=== PATIENT | female | born 1945 | race Caucasian/White ===

== ENCOUNTER 2016-07-01 07:29 | Outpatient (CLI) | payer MEDICARE, OTHER | END 2016-07-01 07:30 | disposition critical access hospital (66) | DX: M25.561 Pain in right knee (principal) | CPT/HCPCS: A0425; A0429 ==

== ENCOUNTER 2016-07-01 08:04 | Emergency (ER) | payer MEDICARE, OTHER ==
--- NOTE | 2016-07-01 08:58 | ED Physician Documentation ---
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 - Present Medications Home Medications: Ambulatory Orders Medication Instructions Recorded Confirmed Calcium [Calcio Javier] 1,000 mg PO DAILY 10/14/12 07/01/16 InFLIXimab [Remicade] 200 mg IV ONCE 10/14/12 07/01/16 Leflunomide [Arava] 1 tab PO DAILY 10/14/12 07/01/16 Multivitamin [Multivitamins] 1 cap PO DAILY 10/14/12 07/01/16 Prednisone 5 mg PO DAILY 10/14/12 07/01/16 HYDROcodone/ACET 10/325 [[place]ila 10 5 mg PO TID PRN 10/23/12 07/01/16 mg/325 mg] Amlodipine Besylate 5 mg PO DAILY 02/10/13 07/01/16 Acetaminophen/Diphenhydramine 2 each PO QPM PRN 03/15/15 07/01/16 [Tylenol Pm Ex-Strength Caplet] Cholestyramine (with Sugar) 4 gm PO DAILY 03/01/16 07/01/16 [Cholestyramine Powder] - Allergies Allergies/Adverse Reactions: Allergies Allergy/AdvReac Type Severity Reaction Status Date / Time iodine Allergy Severe Respiratory Verified 10/14/12 15:24 methotrexate Allergy Severe Respiratory Verified 10/14/12 15:24 venom-honey bee Allergy Severe Respiratory Verified 10/14/12 15:24 latex Allergy Rash Verified 10/14/12 15:23 shellfish derived AdvReac Severe "almost Verified 02/10/13 23:03 " - Social History Does the pt smoke?: No Smoking Status: Former smoker Does the pt drink ETOH?: Yes Does the pt have substance abuse?: No - Immunizations Immunizations are current?: Yes - POLST Patient has POLST: No Results - Vitals Vitals: Vital Signs - 24 hr 07/01/16 08:04 Temperature 36.6 C Heart Rate 75 Respiratory 18 Rate Blood Pressure 134/59 H O2 Saturation 97 Oxygen O2 Source Room air
--- NOTE | 2016-07-01 08:58 | ED Physician Documentation ---
PD HPI SKIN - Stated complaint Stated Complaint: R KNEE PAIN - Chief complaint Chief Complaint: Ext Problem - History obtained from History obtained from: Patient - History of Present Illness Timing - onset: Yesterday Timing - duration: Days (1) Timing - details: Abrupt onset, Still present Location: RLE (right knee swelling and painful. She has been having increased general arthralgias due to RA and had missed 2 doses of remicaide due to UTI recently. Repeat UA was clear after abx. Scheduled for [place]ide dose tomorrow [place] [facility] No fevers.) Quality / character: Painful Associated symptoms: Myalgias, Joint pain (right knee). No: Fever, N/V/D, Urinary sx Contributing factors: Recent illness (UTI couple weeks ago Rx with abx and cleared on repeat urine test.) Similar symptoms before: Has not had sx before (has not had swelling of the knee before.) Review of Systems Constitutional: reports: Myalgias, Fatigue. 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 - Present Medications Home Medications: Ambulatory Orders Medication Instructions Recorded Confirmed Calcium [Calcio Javier] 1,000 mg PO DAILY 10/14/12 07/01/16 InFLIXimab [Remicade] 200 mg IV ONCE 10/14/12 07/01/16 Leflunomide [Arava] 1 tab PO DAILY 10/14/12 07/01/16 Multivitamin [Multivitamins] 1 cap PO DAILY 10/14/12 07/01/16 Prednisone 5 mg PO DAILY 10/14/12 07/01/16 HYDROcodone/ACET 10/325 [[place] 10 5 mg PO TID PRN 10/23/12 07/01/16 mg/325 mg] Amlodipine Besylate 5 mg PO DAILY 12/10/13 04/30/17 Acetaminophen/Diphenhydramine 2 each PO QPM PRN 03/15/15 07/01/16 [Tylenol Pm Ex-Strength Caplet] Cholestyramine (with Sugar) 4 gm PO DAILY 03/01/16 07/01/16 [Cholestyramine Powder] Oxycodone HCl/Acetaminophen 1 each PO Q6H PRN #20 tablet 07/01/16 [Percocet 5-325 mg Tablet] Prednisolone [Millipred] 5 mg PO DAILY #60 tablet 07/01/16 - Allergies Allergies/Adverse Reactions: Allergies Allergy/AdvReac Type Severity Reaction Status Date / Time iodine Allergy Severe Respiratory Verified 10/14/12 15:24 methotrexate Allergy Severe Respiratory Verified 10/14/12 15:24 venom-honey bee Allergy Severe Respiratory Verified 10/14/12 15:24 latex Allergy Rash Verified 10/14/12 15:23 shellfish derived AdvReac Severe "almost Verified 02/10/13 23:03 " - Social History Does the pt smoke?: No Smoking Status: Former smoker Does the pt drink ETOH?: Yes Does the pt have substance abuse?: No - Immunizations Immunizations are current?: Yes - POLST Patient has POLST: No PD ED PE NORMAL - Vitals Vital signs reviewed: Yes - General General: Alert and oriented X 3, Well developed/nourished, Other (appears in pain) - HEENT HEENT: Moist mucous membranes, Pharynx benign - Neck Neck: Supple, no meningeal sign, No adenopathy - Cardiac Cardiac: RRR, No murmur - Respiratory Respiratory: No respiratory distress, Clear bilaterally - Abdomen Abdomen: Normal bowel sounds, Soft, Non tender, Non distended - Female Female : Deferred - Rectal Rectal: Deferred - Back Back: No CVA TTP - Derm Derm: Normal color, Warm and dry - Extremities Extremities: No deformity, Normal ROM s pain, No edema, No calf tenderness / cord, Other (large right knee effusion with old surgical scar noted. No redness but does have some warmth to the knee. ) - Neuro Neuro: Alert and oriented X 3, No motor deficit, Normal speech Results - Vitals Vitals: Vital Signs - 24 hr 07/01/16 07/01/16 07/01/16 08:04 11:24 12:35 Temperature 36.6 C Heart Rate 75 74 66 Respiratory 18 16 12 Rate Blood Pressure 134/59 H 123/65 124/53 L O2 Saturation 97 95 96 07/01/16 14:26 Temperature Heart Rate 74 Respiratory 17 Rate Blood Pressure 113/58 L O2 Saturation 100 Oxygen O2 Source Room air - Labs Labs: Microbiology 07/01/16 09:57 Body Fluid Culture - Preliminary Synovial Fluid Laboratory Tests 07/01/16 07/01/16 07/01/16 09:57 12:54 12:54 WBC 22.1 H RBC 4.24 Hgb 12.5 Hct 37.8 MCV 89.3 MCH 29.5 MCHC 33.0 RDW 14.0 Plt Count 290 MPV 7.3 L Neut # Not Reportable Lymph # Not Reportable [place] # Not Reportable Eos # Not Reportable Baso # Not Reportable Absolute Nucleated RBC Not Reportable Band Neuts % (Manual) 6 Neutrophils # (Manual) 20.1 H Lymphocytes # (Manual) 0.9 L Monocytes # (Manual) 0.9 Basophils # (Manual) 0.2 H Nucleated RBCs Not Reportable Platelet Estimate NORMAL (130-450,000) RBC Morph Micro Appear NORMAL APPEARANCE ESR Sodium 135 Potassium 4.2 Chloride 105 Carbon Dioxide 23 Anion Gap 7.0 BUN 18 Creatinine 0.9 Estimated GFR (MDRD) 62 L Glucose 158 H Calcium 8.8 Total Bilirubin 0.7 AST 29 ALT 27 Alkaline Phosphatase 65 C-Reactive Protein Total Protein 6.8 Albumin 3.4 Globulin 3.4 Albumin/Globulin Ratio 1.0 Lipase 114 H Fluid Source SYNOVIAL Fluid Color STRAW Fluid Clarity CLOUDY Fluid WBC 92902 Fluid RBC 3892 Fluid Neutrophils % 89 Fluid Lymphocytes % 9 Fluid Monocytes % 2 Fluid Crystals NONE SEEN 07/01/16 07/01/16 12:54 12:54 WBC RBC Hgb Hct MCV MCH MCHC RDW Plt Count MPV Neut # Lymph # [place] # Eos # Baso # Absolute Nucleated RBC Band Neuts % (Manual) Neutrophils # (Manual) Lymphocytes # (Manual) Monocytes # (Manual) Basophils # (Manual) Nucleated RBCs Platelet Estimate RBC Morph Micro Appear ESR 20 Sodium Potassium Chloride Carbon Dioxide Anion Gap BUN Creatinine Estimated GFR (MDRD) Glucose Calcium Total Bilirubin AST ALT Alkaline Phosphatase C-Reactive Protein 5.4 H Total Protein Albumin Globulin Albumin/Globulin Ratio Lipase Fluid Source Fluid Color Fluid Clarity Fluid WBC Fluid RBC Fluid Neutrophils % Fluid Lymphocytes % Fluid Monocytes % Fluid Crystals Procedures - Arthrocentesis Joint: Knee Preparation: Consent obtained (verbal), Sterile prep and drape Anesthesia: Lidocaine 1% Fluid: Sent for cell count, Cloudy, Sent for crystals, Sent for culture, Fluid obtained - cc (50) Aftercare: Dressing applied, No complications, Patient tolerated well PD MEDICAL DECISION MAKING - ED course Complexity details: reviewed results, considered differential (rheumatoid flare with effusion vs. gout vs. infection - she is immunocompromised due to medications, so infection a concern. Her cell count for the knee is high enough to be of concern. She has chronic leukocytosis but it is higher than usual. She is scheduled for Remicade dose [place] [facility] which would be good for this RA flare, if that is what it is. Gave dose of Decadron as well. Pain meds given. ) , d/w patient, d/w call center support consultant (call center operations manager Ortho from [facility], who defers the case to our local Ortho. Talked with Dr. Otoole, who will see patient in office tomorrow, and advised not to give abx (wants to tap joint again and the abx would be insufficient anyway, as scope irrigation would be treatment of choice if it is infected. ) Departure - Departure Disposition: Home, Self Care Clinical Impression: Knee effusion, right, Rheumatoid arthritis flare Knee pain, acute Qualifiers: Laterality: right Qualified Code(s): M25.561 - Pain in right knee Condition: Stable Record reviewed to determine appropriate education?: Yes Instructions: ED Effusion Knee Follow-Up: Mert Mares MD [Primary Care Provider] - Yovani Otoole MD [Provider Admit Priv/Credential] - Chuy Enrique MD [Physician No Access] - Prescriptions: Prednisolone [Millipred] 5 mg PO DAILY #60 tablet Oxycodone HCl/Acetaminophen [Percocet 5-325 mg Tablet] 1 each PO Q6H PRN #20 tablet PRN Reason: Pain Comments: Continue usual medications. Oxycodone as needed for pains. [place] [facility] [place] as planned, as the Remicaide and increased steroid dosing will help presuming this is a rheumatoid flare. However there is concern for infection, so see Dr. Otoole, Ortho here in [place], call his office in morning to coordinate him seeing you about further testing of the knee to evaluate for infection. We also have the fluid I obtained that is started on a culture, with the results taking about 3 days. Return if generally sick, fever in particular, other concerns. Discharge Date/Time: 07/01/16 15:23
[2016-07-01] MEDS ORDERED: ONDANSETRON ODT 4 MG TABLET TL STA (09:11)
[2016-07-01] MEDS ORDERED: HYDROmorphone 1 MG/ML SYRINGE IM STA (09:11)
[2016-07-01] MEDS ORDERED: KETOROLAC 30 MG/ML VIAL IM STA (09:11)
[2016-07-01] MEDS ORDERED: DEXAMETHASONE 10 MG/ML VIAL PO STA (09:11)
[2016-07-01] MEDS ORDERED: CHERRY SYRUP 10 ML UDC PO ONE (09:13)
[2016-07-01] MEDS ORDERED: ONDANSETRON ODT 4 MG TABLET ONE (09:13)
[2016-07-01] MEDS ORDERED: DEXAMETHASONE 10 MG/ML VIAL ONE (09:13)
[2016-07-01] MEDS ORDERED: KETOROLAC 60 MG/2 ML VIAL ONE (09:13)
[2016-07-01] MEDS ORDERED: HYDROmorphone 1 MG/ML SYRINGE ONE (09:13)
[2016-07-01 11:16] LABS: BF CLARITY CLOUDY; BF COLOR STRAW; CC,BF RBC 3892 /mm^3
[2016-07-01 11:51] LABS: LYMPHOCYTES %,BODY FLUID 9; MONOCYTES %,BODY FLUID 2 %; NEUTROPHILS %, BF 89 %
[2016-07-01 12:59] LABS: BASOPHILS % (AUTO) 0.3 %; HCT - HEMATOCRIT 37.8 % (37.0-47.0); HGB - HEMOGLOBIN 12.5 g/dL (12.0-16.0); LYMPHOCYTES % (AUTO) 2.6 %; MEAN CORPUSCULAR HEMOGLOBIN 29.5 pg (27.0-31.0); MEAN CORPUSCULAR VOLUME 89.3 fL (81.0-99.0); MEAN PLATELET VOLUME 7.3 fL (7.9-10.8); MONOCYTES % (AUTO) 6.4 %; NEUTROPHILS % (AUTO) 90.7 %; RED BLOOD COUNT 4.24 10^6/uL (4.20-5.40); UNCORRECTED WHITE BLOOD COUNT 22.1 x10^3/uL; WHITE BLOOD COUNT 22.1 x10^3/uL (4.8-10.8)
[2016-07-01 13:15] LABS: BILIRUBIN,TOTAL 0.7 mg/dL (0.2-1.0); CALCIUM 8.8 mg/dL (8.5-10.3); CREATININE 0.9 mg/dL (0.4-1.0); POTASSIUM 4.2 mmol/L (3.5-5.0); TOTAL PROTEIN 6.8 g/dL (6.7-8.2)
[2016-07-01 13:29] LABS: BAND NEUTROPHILS % (MANUAL) 6 %; BASOPHILS % (MANUAL) 1 %; LYMPHOCYTES % (MANUAL) 4 %; NEUTROPHILS % (MANUAL) 85 %; NP AUTO DIFFERENTIAL? YES; NP MAN DIFFERENTIAL? NO; PLATELET ESTIMATE, MANUAL NORMAL (130-450,000) (NORMAL)
[2016-07-01] MEDS ORDERED: oxyCOD/ACETAMIN 5 MG/325 MG TABLET PO STA (14:11)
[2016-07-01] MEDS ORDERED: oxyCOD/ACETAMIN 5 MG/325 MG TABLET PO ONE (14:23)
[2016-07-01 14:27] VITALS: BP 113/58
== END 2016-07-01 15:23 | disposition home or self-care (01) ==
LOC: ED 08:04
DX: M25.461 Effusion, right knee (principal); M25.561 Pain in right knee; M06.9 Rheumatoid arthritis, unspecified; D72.829 Elevated white blood cell count, unspecified; I10 Essential (primary) hypertension; Z87.891 Personal history of nicotine dependence
CPT/HCPCS: 20610; 36415; 80053; 83690; 85025; 85651; 86140; 87070; 87205; 89051; 89060; 96372; 99284; A9270; J1170; Q0162

== ENCOUNTER 2016-08-24 10:52 | Outpatient (CLI) | payer MEDICARE, OTHER ==
--- NOTE | 2016-08-27 16:16 | Mammography Report ---
DIGITAL SCREENING MAMMOGRAM: 08/24/2016 CLINICAL INDICATION: A 70-year-old, for screening. COMPARISON: 09/2014, 02/2014, 07/2013, 11/2012, 05/2012, 04/2012, 04/2010, 01/2009, 04/2007. TECHNIQUE: Routine CC and MLO projections were obtained of the breasts. FINDINGS: The breasts again demonstrate heterogeneously dense fibroglandular parenchyma bilaterally. Coarse and punctate, typically benign calcifications are present. No suspicious masses, clustered mi crocalcifications, or regions of architectural distortion are identified. IMPRESSION: BENIGN FINDINGS. RECOMMENDATION: ROUTINE ANNUAL SCREENING UNLESS OTHERWISE CLINICALLY INDICATED. BIRADS CATEGORY 2-BENIGN FINDINGS. STANDARD QUALIFYING STATEMENTS 1. This examination was reviewed with the aid of Computer-Aided Detection (CAD). 2. A negative or benign imaging report should not delay biopsy if clinically suspicious findings are present. Consider surgical consultation if warranted. More than 5% of cancers are not identified by i maging. 3. Dense breasts may obscure an underlying neoplasm. JOB #: [id number] EXT JOB #:[id number]
== END 2016-08-24 10:53 | disposition home or self-care (01) ==
LOC: DI 10:52
PROVIDERS: ATTEND Internal Medicine
DX: Z12.31 Encounter for screening mammogram for malignant neoplasm of breast (principal)
CPT/HCPCS: 77067

== ENCOUNTER 2016-10-07 20:20 | Outpatient (CLI) | payer MEDICARE, OTHER | END 2016-10-07 20:21 | disposition critical access hospital (66) | LOC: EMS 20:20 | PROVIDERS: ATTEND Surgery | DX: R11.2 Nausea with vomiting, unspecified (principal); R19.7 Diarrhea, unspecified; R50.9 Fever, unspecified | CPT/HCPCS: A0425; A0429 ==

== ENCOUNTER 2016-10-07 20:55 | Inpatient (IN) | payer MEDICARE, OTHER ==
--- NOTE | 2016-10-07 21:09 | ED Physician Documentation ---
PD HPI ABD PAIN - Stated complaint Stated Complaint: FEVER/VOMITING - Chief complaint Chief Complaint: Abd Pain - History obtained from History obtained from: Patient - History of Present Illness Timing - onset: How many days ago (3) Timing - duration: Days (3) Timing - details: Abrupt onset, Still present Quality: Aching, Pain Location: Periumbilical, LLQ Radiation: No: Lower back Improved by: Position Worsened by: Position, Palpation. No: Eating (less appetite and with nausea; vomiting just today.) Associated symptoms: Fever, Nausea, Vomiting, Diarrhea. No: Constipation, Melena, Dysuria Similar symptoms before: Diagnosis (diverticulitis/colonic abscess) Recently seen: Not recently seen Review of Systems Constitutional: reports: Fever, Chills, Myalgias Nose: denies: Rhinorrhea / runny nose, Congestion Throat: denies: Sore throat Respiratory: denies: Cough GI: reports: Abdominal Pain, Nausea (2 days), Vomiting (today), Diarrhea (for 4- 5 days). denies: Constipation : denies: Dysuria, Frequency, Discharge Skin: denies: Rash, Lesions Neurologic: reports: Generalized weakness. denies: Near syncope PD PAST MEDICAL HISTORY - Past Medical History Cardiovascular: Hypertension Respiratory: None Neuro: None Endocrine/Autoimmune: None GI: Other (prior abd abscess (from diverticulitis?) that needed perc drainage, IV abx and was in [facility] [place] for 2 weeks. 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 - Present Medications Home Medications: Ambulatory Orders Medication Instructions Recorded Confirmed Leflunomide [Arava] 10 mg PO DAILY 10/14/12 10/07/16 Prednisone 5 mg PO DAILY 10/14/12 10/07/16 Amlodipine Besylate 5 mg PO DAILY 02/10/13 10/07/16 Oxycodone HCl/Acetaminophen 1 each PO Q6H PRN #20 tablet 07/01/16 10/07/16 [Percocet 5-325 mg Tablet] Albuterol Sulfate [Proair Hfa 2 puffs INH Q4H PRN 10/07/16 10/07/16 Inhaler] Amoxicillin 2,000 mg PO PRN PRN 08/06/17 08/06/17 Losartan Potassium 100 mg PO DAILY 10/07/16 10/07/16 - Allergies Allergies/Adverse Reactions: Allergies Allergy/AdvReac Type Severity Reaction Status Date / Time iodine Allergy Severe Respiratory Verified 10/14/12 15:24 methotrexate Allergy Severe Respiratory Verified 10/14/12 15:24 venom-honey bee Allergy Severe Respiratory Verified 10/14/12 15:24 latex Allergy Rash Verified 10/14/12 15:23 shellfish derived AdvReac Severe "almost Verified 02/10/13 23:03 " - Living Situation Living Situation: reports: Alone Living Arrangement: reports: At home - Social History Does the pt smoke?: No Smoking Status: Former smoker Does the pt drink ETOH?: Yes Does the pt have substance abuse?: No - Family History Family history: reports: Non contributory - Immunizations Immunizations are current?: Yes - POLST Patient has POLST: No PD ED PE NORMAL - Vitals Vital signs reviewed: Yes - General General: Alert and oriented X 3, No acute distress, Well developed/nourished - HEENT HEENT: Pharynx benign - Neck Neck: Supple, no meningeal sign, No adenopathy, No JVD - Cardiac Cardiac: RRR, No murmur - Respiratory Respiratory: Clear bilaterally - Abdomen Abdomen: Soft, Non distended, No organomegaly, Other (tender central abdomen to left mid/lower abdomen locally with guarding. No percussion nor rebound tenderness. ). No: Normal bowel sounds (diminished) - Female Female : Deferred - Rectal Rectal: Deferred - Back Back: No CVA TTP - Derm Derm: Normal color, Warm and dry - Extremities Extremities: No tenderness to palpate, Normal ROM s pain, No edema, No calf tenderness / cord - Neuro Neuro: Alert and oriented X 3, No motor deficit, Normal speech - Psych Psych: Normal mood, Normal affect Results - Vitals Vitals: Vital Signs - 24 hr 10/07/16 21:02 Temperature 37.8 C H Heart Rate 82 Respiratory 18 Rate Blood Pressure 143/67 H O2 Saturation 96 Oxygen O2 Source Room air - Labs Labs: Laboratory Tests 10/07/16 10/07/16 10/07/16 21:48 21:48 21:48 WBC 20.2 H RBC 4.19 L Hgb 12.4 Hct 37.1 MCV 88.6 MCH 29.7 MCHC 33.5 RDW 14.5 Plt Count 225 MPV 7.2 L Neut # Not Reportable Lymph # Not Reportable [place] # Not Reportable Eos # Not Reportable Baso # Not Reportable Absolute Nucleated RBC Not Reportable Total Counted 100 Band Neuts % (Manual) 5 Reactive Lymphs % (Man) 1 Neutrophils # (Manual) 17.8 H Lymphocytes # (Manual) 1.6 Monocytes # (Manual) 0.8 Nucleated RBCs Not Reportable Differential Comment MANUAL DIFFERENTIAL Platelet Estimate NORMAL (130-450,000) Platelet Morphology NORMAL APPEARANCE RBC Morph Micro Appear NORMAL APPEARANCE Sodium 130 L Potassium 3.7 Chloride 98 L Carbon Dioxide 21 Anion Gap 11.0 BUN 15 Creatinine 0.9 Estimated GFR (MDRD) 62 L Glucose 124 H Lactic Acid 0.7 Calcium 8.7 Total Bilirubin 1.6 H AST 19 ALT 16 Alkaline Phosphatase 76 Total Protein 6.9 Albumin 3.3 Globulin 3.6 Albumin/Globulin Ratio 0.9 L Lipase 21 L - Rads (name of study) abd CT Radiology: Prelim report reviewed (lower left diverticulitis. Some right perinephric stranding as well. ) PD MEDICAL DECISION MAKING - ED course Complexity details: reviewed results (no abscess. Some lower left diverticulitis. Also right perinephric stranding that could represent pyelo ( though her pain is not on right). ), re-evaluated patient (improved pain and nausea with meds, and given IV fluids. ), considered differential, d/w patient Departure - Departure Disposition: [facility] DC/Xfer Clinical Impression: Diverticulitis of gastrointestinal tract Abdominal pain Qualifiers: Abdominal location: left lower quadrant Qualified Code(s): R10.32 - Left lower quadrant pain Vomiting Qualifiers: Vomiting type: unspecified Vomiting Intractability: non-intractable Nausea presence: with nausea Qualified Code(s): R11.2 - Nausea with vomiting, unspecified
[2016-10-07] MEDS ORDERED: HYDROmorphone 1 MG/ML CARPUJECT IVP STA (21:29)
[2016-10-07] MEDS ORDERED: SODIUM CHLORIDE 0.9% 1,000 ML IV ONE (21:29)
[2016-10-07] MEDS ORDERED: ONDANSETRON 4 MG/2 ML VIAL IVP STA (21:29)
[2016-10-07 21:55] LABS: BASOPHILS % (AUTO) 0.3 %; EOSINOPHILS % (AUTO) 0.1 %; HCT - HEMATOCRIT 37.1 % (37.0-47.0); HGB - HEMOGLOBIN 12.4 g/dL (12.0-16.0); LYMPHOCYTES % (AUTO) 4.8 %; MEAN CORPUSCULAR HEMOGLOBIN 29.7 pg (27.0-31.0); MEAN CORPUSCULAR HGB CONC 33.5 g/dL (32.0-36.0); MEAN CORPUSCULAR VOLUME 88.6 fL (81.0-99.0); MEAN PLATELET VOLUME 7.2 fL (7.9-10.8); NEUTROPHILS % (AUTO) 83.8 %; RED BLOOD COUNT 4.19 10^6/uL (4.20-5.40); RED CELL DISTRIBUTION WIDTH 14.5 % (12.0-15.0); UNCORRECTED WHITE BLOOD COUNT 20.2 x10^3/uL; WHITE BLOOD COUNT 20.2 x10^3/uL (4.8-10.8)
[2016-10-07 22:08] LABS: ALBUMIN/GLOBULIN RATIO 0.9 (1.0-2.2); BILIRUBIN,TOTAL 1.6 mg/dL (0.2-1.0); CALCIUM 8.7 mg/dL (8.5-10.3); CREATININE 0.9 mg/dL (0.4-1.0); POTASSIUM 3.7 mmol/L (3.5-5.0); TOTAL PROTEIN 6.9 g/dL (6.7-8.2)
[2016-10-07] MEDS ORDERED: cefTRIAXone 1 GM in SODIUM CHLORIDE 0.9% MINIBAG 100 ML IV STA (22:13)
[2016-10-07] MEDS ORDERED: ONDANSETRON 4 MG/2 ML VIAL ONE (22:16)
[2016-10-07] MEDS ORDERED: HYDROmorphone 1 MG/ML CARPUJECT ONE (22:16)
[2016-10-07] MEDS ORDERED: cefTRIAXone 1 GM VIAL ONE (22:20)
--- NOTE | 2016-10-07 22:21 | CT Preliminary Report ---
Exam: CT Abdomen/Pelvis W/O IMPRESSION: 1. Mild left lower quadrant diverticulitis. 2. Right perinephric stranding. This is a nonspecific finding and may be secondary to a recently pass ed stone or pyelonephritis. 3. Small hiatal hernia. [facility] SITE ID: [id number]
--- NOTE | 2016-10-07 22:24 | CT Report ---
EXAM: CT ABDOMEN AND PELVIS EXAM DATE: 10/07/2016 10:06 PM. CLINICAL HISTORY: Mid abd pain and fever. COMPARISONS: None. TECHNIQUE: Routine helical CT imaging was performed through the abdomen and pelvis. IV contrast: Amt/ type. Enteric contrast: No. Reconstructions: Coronal and sagittal. In accordance with CT protocol optimization, one or more of the following dose reduction techniques w ere utilized for this exam: automated exposure control, adjustment of mA and/or KV based on patient s ize, or use of iterative reconstructive technique. FINDINGS: Lung Bases: Noncalcified pleural plaque seen at the right lung base, relatively stable. There is a sm all hiatal hernia. No pleural effusions. Liver: The unenhanced liver is unremarkable. Gallbladder/Bile Ducts: The gallbladder has been removed. There is no biliary dilatation. Spleen: Normal. Pancreas: Normal. Adrenal Glands: Normal. Kidneys: No renal stones. Is mild right renal pelviectasis and perinephric stranding. Peritoneal Cavity/Bowel: Diverticulosis. Short segment of mural thickening and pericolonic stranding in the left lower quadrant. No pneumoperitoneum or fluid collections. The appendix is well visualized and normal. Pelvic Organs: The uterus has been removed. No pelvic mass, lymphadenopathy or fluid collections. The urinary bladder is unremarkable. Vasculature: No aneurysms or other significant abnormality. Bones: L4-L5 and L5-S1 disk related degenerative changes. No acute bony abnormality. Other: None. IMPRESSION: 1. Mild left lower quadrant diverticulitis. 2. Right perinephric stranding. This is a nonspecific finding and may be secondary to a recently pass ed stone or pyelonephritis. 3. Small hiatal hernia. [facility] Referring Provider Line: [phone] SITE ID: [id number]
[2016-10-07] MEDS ORDERED: metroNIDAZOLE 500 MG/100 ML 100 ML IV ONE (22:34)
[2016-10-07 22:39] LABS: BAND NEUTROPHILS % (MANUAL) 5 %; LYMPHOCYTES % (MANUAL) 7 %; NEUTROPHILS % (MANUAL) 83 %; NP AUTO DIFFERENTIAL? YES; NP MAN DIFFERENTIAL? NO; PLATELET ESTIMATE, MANUAL NORMAL (130-450,000) (NORMAL); PLATELET MORPHOLOGY NORMAL APPEARANCE (NORMAL); TOTAL CELLS COUNTED 100
[2016-10-07] MEDS ORDERED: metroNIDAZOLE 500 MG/100 ML 100 ML ONE (22:50)
[2016-10-07] MEDS ORDERED: MORPHINE 2 MG/ML CARPUJECT IVP PRN (23:50)
--- NOTE | 2016-10-08 00:20 | HISTORY & PHYSICAL EXAMINATION ---
Chief Complaint - Chief Complaint Chief Complaint: fever, diarrhea Abdominal Pain HPI - Admitted From Admitted from: ED - History Obtained From Records Reviewed: Old records reviewed History obtained from: Patient Exam limitations: No limitations - History of Present Illness Severity at the worst: Severe Pain Quality: Sharp Context-Pain started w/: Eating Timing: Gradual onset Duration: Days: Improved with: Nothing Worsened by: Nothing Associated symptoms: Nausea, Vomiting HPI Comment/Other: 70yoF wtih h/o RA, HTN and diverticuli. On Sat (10/05) pt had sudden onset of vomiting and abd pain after eating dinner (soup). Went to bed at 10:30pm and woke up the next night at 7pm. Had an episode of diarrhea and did not feel well so went back to sleep until 8am today. Vomiting (bilious, non-bloody)x1 today and diarrhea x2. no blood in emesis or stool. Continued to have abd pain and worsening nausea. Fever to 103 at home wtih shaking chills. In ER CT shows diverticulitis in the LLQ, also some non-specific perinephric stranding. Denies dysuria/hematuria, no change in color or smell of urine. Starting to feel better after fluids and nausea medication Pt had episode of diverticulitis with abscess requiring perc drainage about 5yrs ago. Otherwise has had no other episodes of diverticulitis. Pt also with RA. Has not taken medication in 2 days, so has some stiffness in joints, but no actual flare. PMH/PSH - Past Medical History Cardiovascular: positive: Hypertension Respiratory: positive: None Neuro: positive: None Endocrine/Autoimmune: positive: None GI: positive: Other (prior abd abscess (from diverticulitis?) that needed perc drainage, IV abx and was in [facility] for 2 weeks. 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 has 2 cats - POLST Patient has POLST: No - Family History Family History: Mother: Cancer, Father: Cancer Family History Comment/Other: mom with ovarian cancer, dad wtih stomach cancer Meds/Allgy - Home Medications Home Medications: Ambulatory Orders Medication Instructions Recorded Confirmed Leflunomide [Arava] 10 mg PO DAILY 10/14/12 10/07/16 Prednisone 5 mg PO DAILY 10/14/12 10/07/16 Amlodipine Besylate 5 mg PO DAILY 02/10/13 10/07/16 Oxycodone HCl/Acetaminophen 1 each PO Q6H PRN #20 tablet 07/01/16 10/07/16 [Percocet 5-325 mg Tablet] Albuterol Sulfate [Proair Hfa 2 puffs INH Q4H PRN 10/07/16 10/07/16 Inhaler] Amoxicillin 2,000 mg PO PRN PRN 10/07/16 10/07/16 Losartan Potassium 100 mg PO DAILY 10/07/16 10/07/16 - Allergies Allergies/Adverse Reactions: Allergies Allergy/AdvReac Type Severity Reaction Status Date / Time iodine Allergy Severe Respiratory Verified 10/14/12 15:24 methotrexate Allergy Severe Respiratory Verified 10/14/12 15:24 venom-honey bee Allergy Severe Respiratory Verified 10/14/12 15:24 latex Allergy Rash Verified 10/14/12 15:23 shellfish derived AdvReac Severe "almost Verified 02/10/13 23:03 " Review of Systems - Constitutional Constitutional: reports: Fatigue, Fever, Chills, Malaise, Weakness, Poor appetite - Eyes Eyes: denies: Blurred vision, Dipolpia - Ears, Nose & Throat Ears, Nose & Throat: denies: Vertigo, Mouth lesions - Cardiovascular Cariovascular: denies: Palpitations, Chest pain, Edema, Lightheadedness, Syncope - Respiratory Respiratory: denies: Cough, Sputum production, Wheezing - Gastrointestinal Gastrointestinal: reports: Abdominal pain, Diarrhea, Nausea, Vomiting, Bile emesis. denies: Black stools, Bloody stools - Genitourinary Genitourinary: denies: Dysuria, Hematuria - Musculoskeletal Musculoskeletal: reports: Muscle aches - Integumentary Integumentary: denies: Rash, Pruritis - Neurological Neurological: reports: General weakness - All Other Systems All Other Systems: reports: Reviewed and negative Exam - Vital Signs Reviewed Vital Signs: Yes Vital Signs: Vital Signs x48h Temp Pulse Resp BP Pulse Ox 10/07/16 21:02 37.8 C H 82 18 143/67 H 96 - Physical Exam General Appearance: positive: No acute distress Eyes Bilateral: positive: PERRL, EOMI, Conjunctivae nml, No scleral icterus ENT: positive: Pharynx nml. negative: Oral lesions Neck: positive: Thyroid nml, No JVD. negative: Lymphadenopathy (R), Lymphadenopathy (L) Respiratory: positive: Chest non-tender, No respiratory distress, Breath sounds nml. negative: Wheezes, Rales, Rhonchi Cardiovascular: positive: Regular rate & rhythm, No murmur, No gallop Peripheral Pulses: positive: 2+ Abdomen: positive: Tenderness (LLQ). negative: No distention, Guarding, Rebound Back: negative: CVA tenderness (R), CVA tenderness (L) Skin: positive: Color nml, No rash, Warm, Dry Extremities: positive: Non-tender, No pedal edema Neurologic/Psychiatric: positive: Oriented x3 Results - Lab Results Lab results reviewed: Yes Fish Bones: 10/07/16 21:48 10/07/16 21:48 Other Lab Results: Lab Results x24hrs 10/07/16 10/07/16 10/07/16 Range/Units 21:48 21:48 21:48 WBC 20.2 H (4.8-10.8) x10^3/uL RBC 4.19 L (4.20-5.40) 10^6/uL Hgb 12.4 (12.0-16.0) g/dL Hct 37.1 (37.0-47.0) % MCV 88.6 (81.0-99.0) fL MCH 29.7 (27.0-31.0) pg MCHC 33.5 (32.0-36.0) g/dL RDW 14.5 (12.0-15.0) % Plt Count 225 (130-450) 10^3/uL MPV 7.2 L (7.9-10.8) fL Neut # Not Reportable Lymph # Not Reportable [place] # Not Reportable Eos # Not Reportable Baso # Not Reportable Absolute Nucleated RBC Not Reportable Total Counted 100 Band Neuts % (Manual) 5 (0 - 10) % Reactive Lymphs % (Man) 1 % Neutrophils # (Manual) 17.8 H (1.5-6.6) 10^3/uL Lymphocytes # (Manual) 1.6 (1.5-3.5) 10^3/uL Monocytes # (Manual) 0.8 (0.0-1.0) 10^3/uL Nucleated RBCs Not Reportable Differential Comment MANUAL DIFFERENTIAL Platelet Estimate NORMAL (130-450,000) (NORMAL) Platelet Morphology NORMAL APPEARANCE (NORMAL) RBC Morph Micro Appear NORMAL APPEARANCE (NORMAL) Sodium 130 L (135-145) mmol/L Potassium 3.7 (3.5-5.0) mmol/L Chloride 98 L (101-111) mmol/L Carbon Dioxide 21 (21-32) mmol/L Anion Gap 11.0 (6-13) BUN 15 (6-20) mg/dL Creatinine 0.9 (0.4-1.0) mg/dL Estimated GFR (MDRD) 62 L (>89) Glucose 124 H (70-100) mg/dL Lactic Acid 0.7 (0.5-2.2) mmol/L Calcium 8.7 (8.5-10.3) mg/dL Total Bilirubin 1.6 H (0.2-1.0) mg/dL AST 19 (10-42) IU/L ALT 16 (10-60) IU/L Alkaline Phosphatase 76 (42-121) IU/L Total Protein 6.9 (6.7-8.2) g/dL Albumin 3.3 (3.2-5.5) g/dL Globulin 3.6 (2.1-4.2) g/dL Albumin/Globulin Ratio 0.9 L (1.0-2.2) Lipase 21 L (22-51) U/L - Diagnostic Imaging Results Diagnostic Imaging Results: positive: Final report reviewed Diagnostic Imaging Results Comments: CT abd/pelv - LLQ diverticulitis, non-specific perinephric stranding stranding, small hiatal hernia - Other Other Results/Comments: lactate 0.7 ARRA - Anticipated LOS Anticipated Stay Length: Less than 2 midnights - DVT/VTE - Prophylaxis VTE/DVT Device ordered at admit?: Yes Impression/Plan - Problem List Problem List: 1. LLQ diverticuli with no evidence of perforation, abscess - cipro / flagyl iV - liquid diet, advance as tolerated - pain and nausea control - APAP prn 2. RA, no acute flare, but missed 2 days of medication - continue low dose prednisone - hold leflunomide for now, may need to restart if starts having flare 3. HTN - continue losartan 4. DVT prophy - heparin 5. dispo: likely home when nausea and pain better controlled - anticipate <96hr hospital LOS
[2016-10-08] MEDS ORDERED: SODIUM CHLORIDE 0.9% MINIBAG 100 ML IV ONE (01:39)
[2016-10-08] MEDS: ONDANSETRON 4 MG/2 ML VIAL IVP PRN ×3 (02:36→23:54)
[2016-10-08] MEDS: KETOROLAC 15 MG/ML VIAL IVP PRN (02:40)
[2016-10-08] MEDS: SODIUM CHLORIDE 0.9% 1,000 ML IV SCH ×2 (02:44→11:22)
[2016-10-08] MEDS: CIPROFLOXACIN 400 MG/200 ML 200 ML IV SCH ×2 (03:03→13:21)
[2016-10-08] MEDS: metroNIDAZOLE 500 MG/100 ML 100 ML IV SCH ×4 (04:26→23:54)
[2016-10-08 04:50] LABS: BILIRUBIN,URINE NEGATIVE (NEGATIVE)
[2016-10-08 05:06] LABS: UA w/ MICROSCOPIC CHARGE YES; UR CULTURE IF IND INDICATED; WBC,URINE >25 /HPF (0-5)
[2016-10-08] MEDS: SODIUM CHLORIDE FLUSH 0.9% 10 ML SYRINGE IVP SCH ×3 (06:16→19:59)
[2016-10-08] MEDS ORDERED: amLODIPine 5 MG TABLET PO SCH (09:00)
[2016-10-08] MEDS ORDERED: predniSONE 5 MG TABLET PO SCH (09:00)
[2016-10-08] MEDS ORDERED: LOSARTAN POTASSIUM 100 MG PO SCH (09:00)
[2016-10-08] MEDS: predniSONE 5 MG TABLET PO SCH (10:07)
[2016-10-08] MEDS: HEPARIN 5,000 UNIT/ML VIAL SUBQ SCH ×2 (11:19→19:59)
[2016-10-08] MEDS: amLODIPine 5 MG TABLET PO SCH (11:22)
[2016-10-08] MEDS: LOSARTAN 50 MG TABLET PO SCH (11:23)
[2016-10-08] MEDS: POLYETHYLENE GLYCOL 3350 17 GM PACKET PO SCH (11:23)
[2016-10-08] MEDS: CHOLESTYRAMINE 4 GM PACKET PO SCH (11:35)
[2016-10-08] MEDS ORDERED: ALBUTEROL HFA INHALER INH PRN (12:00)
--- NOTE | 2016-10-08 15:59 | PROVIDER PROGRESS NOTE ---
Subjective - Subjective Pt reports feeling: Improved Subjective: pt report she feel better but still no bowel movement, pain is better controlled but still intermittent, she state she is not ready going home today. Objective - Vital Signs/Intake & Output Vital Signs: Vital Signs x48h Temp Pulse Resp BP Pulse Ox 10/08/16 15:48 37.1 C 57 L 16 111/54 L 95 Intake & Output: Intake & Output 10/05/16 10/06/16 10/07/16 10/08/16 23:59 23:59 23:59 23:59 Intake Total 2400 Output Total 700 Balance 1700 - Objective General Appearance: positive: No acute distress, Alert. negative: Lethargic Eyes Bilateral: positive: Normal inspection, PERRL. negative: No lid inflammation, Conjunctivae nml ENT: positive: ENT inspection nml, Pharynx nml. negative: No signs of dehydration, Purulent nasal drainage, Pharyngeal erythema Neck: positive: Nml inspection, Thyroid nml, Trachea midline. negative: Lymphadenopathy (R), Lymphadenopathy (L), Stiff neck, Carotid bruit, Swelling/ bruising Respiratory: positive: Chest non-tender, No respiratory distress, Breath sounds nml, Wheezes, Rales, Rhonchi Cardiovascular: positive: Regular rate & rhythm, No murmur, No gallop. negative : Bradycardia, Gallop/S4, Friction rub, Decreased pulse(s), Crepitus Peripheral Pulses: 2+ Radial (R), 2+ Radial (L), 2+ Dorsalis pedis (R), 2+ Dorsalis pedis (L) Abdomen: positive: Non-tender, Nml bowel sounds, No distention. negative: Tenderness, Guarding, Rebound Back: positive: Nml inspection. negative: CVA tenderness (R), CVA tenderness (L ) Skin: positive: Color nml, No rash, Warm, Dry. negative: Diaphoresis, Skin rash , Decubitus Extremities: positive: Non-tender, Full ROM, Nml appearance, No pedal edema. negative: Pedal edema, Joint swelling Neurologic/Psychiatric: positive: Oriented x3, CN's nml (2-12), Motor nml, Sensation nml, Mood/affect nml. negative: Disoriented to person, Disoriented to place, Disoriented to time, Weakness, Sensory loss, Facial droop, Slurred/ abnml speech - Lab Results Fish Bones: 10/07/16 21:48 10/07/16 21:48 Other Labs: Lab Results x24hrs 10/08/16 10/08/16 Range/Units 06:08 04:25 POC Whole Bld Glucose 135 H (70 - 100) mg/dL Urine Color YELLOW Urine Clarity HAZY (CLEAR) Urine pH 6.0 (5.0-7.5) PH Ur Specific [place] 1.020 (1.002-1.030) Urine Protein 30 H (NEGATIVE) mg/dL Urine Glucose (UA) NEGATIVE (NEGATIVE) mg/dL Urine Ketones 40 H (NEGATIVE) mg/dL Urine Occult Blood MODERATE H (NEGATIVE) Urine Nitrite POSITIVE H (NEGATIVE) Urine Bilirubin NEGATIVE (NEGATIVE) Urine Urobilinogen 0.2 (NORMAL) (NORMAL) E.U./dL Ur Leukocyte Esterase SMALL H (NEGATIVE) Urine RBC 6-10 H (0-5) /HPF Urine WBC >25 H (0-5) /HPF Ur Squamous Epith Cells RARE Squamous (<= Few) Urine Bacteria None Seen (None Seen) /HPF Ur Microscopic Review INDICATED Urine Culture Comments INDICATED Assessment/Plan - Problem List (1) Diverticulitis of gastrointestinal tract Impression: continue antibiotics, pt state pt is ready to update the advance diet (2) UTI (urinary tract infection) Impression: pt is on cipro, continue to treat, follow UA culture (3) Rheumatoid arthritis flare Impression: stable, reconciliation of home meds (4) HTN (hypertension) Impression: stable, reconciliation of home meds
[2016-10-09] MEDS: CIPROFLOXACIN 400 MG/200 ML 200 ML IV SCH ×2 (01:15→13:26)
[2016-10-09] MEDS: metroNIDAZOLE 500 MG/100 ML 100 ML IV SCH ×4 (05:34→23:48)
[2016-10-09] MEDS: SODIUM CHLORIDE FLUSH 0.9% 10 ML SYRINGE IVP SCH ×3 (05:34→19:12)
[2016-10-09] MEDS: ONDANSETRON 4 MG/2 ML VIAL IVP PRN (05:42)
[2016-10-09] MEDS: amLODIPine 5 MG TABLET PO SCH (08:17)
[2016-10-09] MEDS: CHOLESTYRAMINE 4 GM PACKET PO SCH (08:18)
[2016-10-09] MEDS: HEPARIN 5,000 UNIT/ML VIAL SUBQ SCH ×2 (08:18→16:52)
[2016-10-09] MEDS: predniSONE 5 MG TABLET PO SCH (08:19)
[2016-10-09] MEDS: POLYETHYLENE GLYCOL 3350 17 GM PACKET PO SCH (08:19)
[2016-10-09] MEDS: LOSARTAN 50 MG TABLET PO SCH (08:19)
[2016-10-09 11:47] LABS: BASOPHILS % (AUTO) 0.3 %; EOSINOPHILS % (AUTO) 0.1 %; HCT - HEMATOCRIT 32.4 % (37.0-47.0); HGB - HEMOGLOBIN 10.9 g/dL (12.0-16.0); LYMPHOCYTES # (AUTO) 0.8 10^3/uL (1.5-3.5); LYMPHOCYTES % (AUTO) 6.4 %; MEAN CORPUSCULAR HEMOGLOBIN 29.6 pg (27.0-31.0); MEAN CORPUSCULAR HGB CONC 33.7 g/dL (32.0-36.0); MEAN CORPUSCULAR VOLUME 87.7 fL (81.0-99.0); MEAN PLATELET VOLUME 7.7 fL (7.9-10.8); MONOCYTES # (AUTO) 1.5 10^3/uL (0.0-1.0); MONOCYTES % (AUTO) 12.1 %; NEUTROPHILS % (AUTO) 81.1 %; NUCLEATED RED BLOOD CELLS AUTO 0.1 /100WBC; RED BLOOD COUNT 3.69 10^6/uL (4.20-5.40); RED CELL DISTRIBUTION WIDTH 14.7 % (12.0-15.0); UNCORRECTED WHITE BLOOD COUNT 12.3 x10^3/uL; WHITE BLOOD COUNT 12.3 x10^3/uL (4.8-10.8)
[2016-10-09 11:58] LABS: ALBUMIN/GLOBULIN RATIO 0.8 (1.0-2.2); BILIRUBIN,TOTAL 0.6 mg/dL (0.2-1.0); CREATININE 0.8 mg/dL (0.4-1.0); MAGNESIUM 1.7 mg/dL (1.7-2.8); POTASSIUM 3.6 mmol/L (3.5-5.0); TOTAL PROTEIN 5.9 g/dL (6.7-8.2)
[2016-10-09] MEDS: NYSTATIN 500000 UNITS/5 ML UDC PO SCH ×2 (16:41→20:05)
--- NOTE | 2016-10-09 19:14 | PROVIDER PROGRESS NOTE ---
Subjective - Subjective Subjective: pt report she has diarrhea, not feel well. denies chest pain, abdominal pain, headache. Objective - Vital Signs/Intake & Output Vital Signs: Vital Signs x48h Temp Pulse Resp BP Pulse Ox 10/09/16 16:23 36.8 C 55 L 16 122/57 L 98 Intake & Output: Intake & Output 10/06/16 10/07/16 10/08/16 10/09/16 23:59 23:59 23:59 23:59 Intake Total 180 2234 Output Total 400 7 Balance -220 2227 - Objective General Appearance: positive: No acute distress, Alert. negative: Anxious, Lethargic Eyes Bilateral: positive: Normal inspection, PERRL. negative: No lid inflammation, Conjunctivae nml ENT: positive: ENT inspection nml, Pharynx nml. negative: Purulent nasal drainage, Pharyngeal erythema Neck: positive: Nml inspection, Thyroid nml, Trachea midline. negative: Lymphadenopathy (R), Lymphadenopathy (L), Carotid bruit, Swelling/bruising Respiratory: positive: Chest non-tender, No respiratory distress, Breath sounds nml. negative: Wheezes, Rales, Rhonchi Cardiovascular: positive: Regular rate & rhythm, No murmur, No gallop. negative : PMI displaced laterally, Systolic murmur, Gallop/S4, Friction rub Peripheral Pulses: 2+ Radial (R), 2+ Radial (L), 2+ Dorsalis pedis (R), 2+ Dorsalis pedis (L) Abdomen: positive: Non-tender, Nml bowel sounds, No distention. negative: Tenderness, Guarding, Rebound, Bruit Back: positive: Nml inspection. negative: CVA tenderness (R), CVA tenderness (L ) Skin: positive: Color nml, Warm, Dry. negative: Diaphoresis, Skin rash, Decubitus, Embolic lesions Extremities: positive: Non-tender, Full ROM, Nml appearance. negative: Pedal edema, Calf tenderness Neurologic/Psychiatric: positive: Oriented x3, CN's nml (2-12), Motor nml, Sensation nml, Mood/affect nml. negative: Disoriented to person, Disoriented to place, Disoriented to time, Weakness, Sensory loss, Facial droop, Slurred/ abnml speech - Lab Results Fish Bones: 10/09/16 11:38 10/09/16 11:38 Other Labs: Lab Results x24hrs 10/09/16 10/09/16 Range/Units 11:38 11:38 WBC 12.3 H (4.8-10.8) x10^3/uL RBC 3.69 L (4.20-5.40) 10^6/uL Hgb 10.9 L (12.0-16.0) g/dL Hct 32.4 L (37.0-47.0) % MCV 87.7 (81.0-99.0) fL MCH 29.6 (27.0-31.0) pg MCHC 33.7 (32.0-36.0) g/dL RDW 14.7 (12.0-15.0) % Plt Count 214 (130-450) 10^3/uL MPV 7.7 L (7.9-10.8) fL Neut # 10.0 H (1.5-6.6) 10^3/uL Lymph # 0.8 L (1.5-3.5) 10^3/uL [place] # 1.5 H (0.0-1.0) 10^3/uL Eos # 0.0 (0.0-0.7) 10^3/uL Baso # 0.0 (0.0-0.1) 10^3/uL Absolute Nucleated RBC 0.01 x10^3/uL Nucleated RBCs 0.1 /100WBC Sodium 135 (135-145) mmol/L Potassium 3.6 (3.5-5.0) mmol/L Chloride 108 (101-111) mmol/L Carbon Dioxide 21 (21-32) mmol/L Anion Gap 6.0 (6-13) BUN 9 (6-20) mg/dL Creatinine 0.8 (0.4-1.0) mg/dL Estimated GFR (MDRD) 71 L (>89) Glucose 121 H (70-100) mg/dL Calcium 8.0 L (8.5-10.3) mg/dL Magnesium 1.7 (1.7-2.8) mg/dL Total Bilirubin 0.6 (0.2-1.0) mg/dL AST 15 (10-42) IU/L ALT 15 (10-60) IU/L Alkaline Phosphatase 69 (42-121) IU/L Total Protein 5.9 L (6.7-8.2) g/dL Albumin 2.7 L (3.2-5.5) g/dL Globulin 3.2 (2.1-4.2) g/dL Albumin/Globulin Ratio 0.8 L (1.0-2.2) Assessment/Plan - Problem List (1) Diarrhea Impression: pt report diarrhea, order PCR C.Diff, culture of stool, occult blood test, pt also report black stool as well (2) Diverticulitis of gastrointestinal tract Impression: pain is controlled, continue treatment (3) UTI (urinary tract infection) Impression: denies dysuria, continue treatment (4) HTN (hypertension) Impression: stable, continue treatment
[2016-10-09] MEDS: KETOROLAC 15 MG/ML VIAL IVP PRN (22:36)
[2016-10-09] MEDS: SODIUM CHLORIDE FLUSH 0.9% 10 ML SYRINGE IVP PRN ×2 (22:36→23:48)
[2016-10-10] MEDS: CIPROFLOXACIN 400 MG/200 ML 200 ML IV SCH ×2 (00:56→13:24)
[2016-10-10] MEDS: SODIUM CHLORIDE FLUSH 0.9% 10 ML SYRINGE IVP SCH (06:42)
[2016-10-10] MEDS: metroNIDAZOLE 500 MG/100 ML 100 ML IV SCH ×2 (06:42→13:23)
[2016-10-10 08:07] VITALS: BP 142/85
[2016-10-10] MEDS: NYSTATIN 500000 UNITS/5 ML UDC PO SCH ×2 (09:18→13:24)
[2016-10-10] MEDS: LOSARTAN 50 MG TABLET PO SCH (09:18)
[2016-10-10] MEDS: POLYETHYLENE GLYCOL 3350 17 GM PACKET PO SCH (09:19)
[2016-10-10] MEDS: predniSONE 5 MG TABLET PO SCH (09:19)
[2016-10-10] MEDS: CHOLESTYRAMINE 4 GM PACKET PO SCH (09:19)
[2016-10-10] MEDS: amLODIPine 5 MG TABLET PO SCH (09:19)
[2016-10-10] MEDS: HEPARIN 5,000 UNIT/ML VIAL SUBQ SCH (09:19)
--- NOTE | 2016-10-10 11:18 | Discharge Plan ---
Discharge Plan Disposition: Home, Self Care Condition: Good Prescriptions: Ciprofloxacin HCl [Cipro] 500 mg PO BID #10 tablet Metronidazole [Flagyl] 500 mg PO TID #15 tablet Diet: Regular Activity Restrictions: Activity as Tolerated Additional Instructions or Follow Up instructions: see your PCP in a week for follow up; check your blood pressure and adjust your medication accordingly see your GI doctor due to recent diverticulitis; consider repeat colonoscopy if needed talk to your nurse ldr when you can resume your medication keep hydrated. diet as tolerated as well as activity if you feel very sick, fever, chills, nausea, vomit, more abdominal pain, diarrhea, chest pain, shortness of breath, see your doctor soon or come to ED monitor your blood pressure 1-2 times a day; show the result to your doctor; it will help him to adjust your BP medications No Smoking: If you smoke, Please STOP! Call for help. Follow-up with: Mert Mares MD [Provider Admit Priv/Credential] -
--- NOTE | 2016-10-10 11:33 | DISCHARGE SUMMARY ---
Discharge Summary Admit Date: 10/08/16 Discharge Date: 10/10/16 Discharging Provider: RAMYA Sadler Primary Care Provider: Dr. Mert Mares Code Status: Attempt Resuscitation Discharge Facility Name: home - DIAGNOSES Admission Diagnoses: Diverticulitis hypertension RA Discharge Diagnoses with Status of Each Condition: Diverticulitis-- improving; on flagyl and cipro for total 7 days; GI follow up hypertension--stable; on Losartan RA-- stable; on prednisone; hold Leflunomide for now; outpatient f/u with clerical assistant Possible UTI with dysuria-- UA was obtained after antibiotic given; final culture negative. - HPI History of Present Illness: 70 year old lady with history of RA, diverticuli; came to ED with sudden onset vomiting and abdominal pain. in ED, CT of abdomen showed diverticulitis in the LLQ; due to diverticulitis, patient was admitted. please see details from H and P done by Dr. Kiara Ybarra - CONSULTS | PROCEDURES Consultations: none Procedures: none - HOSPITAL COURSE Hospital Course: Patient has been treated with iv cipro and flagyl. clinically she has improved. she has no fever, chills, chest pain, shortness of breath. her abdominal pain is gone. she had diarrhea, her stool study was negative for C-diff. today she had regular bowel movement. she told me today that she had dysuria when she came to ED; but not now. her urine was obtained after she recieved iv antibiotics. discharge plan was discussed with her. questions and concerns were answered - ALLERGIES Allergies/Adverse Reactions: Allergies Allergy/AdvReac Type Severity Reaction Status Date / Time iodine Allergy Severe Respiratory Verified 10/14/12 15:24 methotrexate Allergy Severe Respiratory Verified 10/14/12 15:24 venom-honey bee Allergy Severe Respiratory Verified 10/14/12 15:24 latex Allergy Rash Verified 10/14/12 15:23 shellfish derived AdvReac Severe "almost Verified 02/10/13 23:03 " - MEDICATIONS Home Medications: Ambulatory Orders Medication Instructions Recorded Confirmed Prednisone 5 mg PO DAILY 10/14/12 10/07/16 Albuterol Sulfate [Proair Hfa 2 puffs INH Q4H PRN 10/07/16 10/08/16 Inhaler] Amlodipine Besylate 5 mg PO DAILY #0 08/09/17 08/07/17 Ciprofloxacin HCl [Cipro] 500 mg PO BID #10 tablet 10/10/16 Leflunomide [Arava] 10 mg PO DAILY #0 10/10/16 10/08/16 Metronidazole [Flagyl] 500 mg PO TID #15 tablet 10/10/16 - PHYSICAL EXAM AT DISCHARGE General Appearance: positive: No acute distress, Alert Eyes Bilateral: positive: Normal inspection, PERRL, EOMI ENT: positive: Pharynx nml Neck: positive: Nml inspection Respiratory: positive: No respiratory distress, Breath sounds nml Cardiovascular: positive: Regular rate & rhythm, No murmur Abdomen: positive: Nml bowel sounds, No distention, Other (very mild tenderness with palpation at LLQ, no guarding and rebound) Back: positive: Nml inspection Skin: positive: Color nml, No rash, Warm Extremities: positive: Non-tender, Full ROM Neurologic/Psychiatric: positive: Oriented x3, CN's nml (2-12) - LABS Result Diagrams: 10/09/16 11:38 10/09/16 11:38 Other Lab Results: stool studies negative for C-diff Urine culture negative - DIAGNOSTIC IMAGING Diagnostic Imaging Results: Final report reviewed Diagnostic Imaging Results Comments: 10/07/16 CT of abdomen/pelvis showed diverticulitis, no-specific perineprhric stranding - FOLLOW UP Follow Up: PCP in a week GI in 1-3 weeks rheurmatologist as instructed before
== END 2016-10-10 13:58 | disposition home or self-care (01) | DRG 392 ==
LOC: ED 20:55 → OBS 23:51 → OBSVTOIN 10-08 15:49 → MS3 10-08 16:58
PROVIDERS: ADMIT Internal Medicine; ATTEND Nurse Practitioner
DX: K57.32 Diverticulitis of large intestine without perforation or abscess without bleeding (principal); N39.0 Urinary tract infection, site not specified; I10 Essential (primary) hypertension; Z90.49 Acquired absence of other specified parts of digestive tract; Z90.710 Acquired absence of both cervix and uterus; M06.9 Rheumatoid arthritis, unspecified; Z87.891 Personal history of nicotine dependence; Z96.659 Presence of unspecified artificial knee joint; Z79.52 Long term (current) use of systemic steroids
CPT/HCPCS: 36415; 74176; 80053; 81001; 81003; 82270; 83605; 83690; 83735; 85025; 87086; 87493; 96361; 96365; 96366; 96367; 96375; 96376; 99283; 99284

== ENCOUNTER 2016-10-25 14:30 | Outpatient (CLI) | payer MEDICARE, OTHER ==
--- NOTE | 2016-10-26 07:00 | DEXA Report ---
DEXA: 10/25/2016 CLINICAL INDICATION: History of care home steroid use. TECHNIQUE: Dual energy x-ray absorptiometry (DXA) was performed on a MYOMO system. Regions measured are the AP spine, femoral neck, and, if needed, forearm. COMPARISON: None. In accordance with the International Society for Clinical Densitometry (ISCD) guidelines, data from previous exams may be reanalyzed using current recommendations and techniques. This is done to allow a more accurate basis for comparison with the current study. FINDINGS: The data for the lumbar spine is as follows: REGION BMD (g/cm/cm) T-SCORE Z-SCORE L1 0.811 -2.7 -0.9 L2 0.979 -1.8 -0.1 L3 0.958 -2.0 -0.3 L4 1.164 -0.3 1.5 L1-L4 0.988 -1.6 0.2 L2-L4 1.404 -1.3 0.4 NOTE: All evaluable vertebrae are used for classification. The data for the hip is as follows: REGION BMD (g/cm/cm) T-SCORE Z-SCORE Neck 0.684 -2.5 -0.7 TOTAL 0.754 -2.0 -0.4 NOTE: The femoral neck or total proximal femur, whichever is lowest, is used for classification. IMPRESSION: THE WHO CLASSIFICATION BASED ON THE INTERNATIONAL REFERENCE STANDARD IS OSTEOPOROSIS (REFERENCE LEFT FEMORAL NECK). THE FRACTURE RISK IS HIGH. RECOMMENDATION: Patients with diagnosis of osteoporosis or osteopenia should have regular bone mineral density assessment. For those eligible for Medicare, routine testing is allowed once every 2 years. Testing frequency can be increased for patients who have rapidly progressing disease or for those who are receiving medical therapy to restore bone mass. COMMENT: World Health Organization (WHO) definitions for osteoporosis and osteopenia: NORMAL BMD: T-score at -1.0 or higher, fracture risk is low. OSTEOPENIA BMD: T-score between -1.0 and -2.5, fracture risk is increased. OSTEOPOROSIS BMD: T-score at -2.5 or lower, fracture risk high. National Osteoporosis Foundation recommends: 1. Obtain adequate dietary calcium (at least 1200 mg per day) and vitamin D (400 -800 international units per day). 2. Participate, as appropriate, in regular weightbearing and muscle- strengthening exercise. 3. Avoid tobacco use and reduce alcohol and caffeine intake. 4. For more detailed information see the website at www.NOF.org. MTDD
== END 2016-10-25 23:59 | disposition home or self-care (01) ==
LOC: DI 14:30
PROVIDERS: ATTEND Internal Medicine Rheumatology
DX: M81.0 Age-related osteoporosis without current pathological fracture (principal)
CPT/HCPCS: 77080

== ENCOUNTER 2017-01-31 09:09 | Day surgery (SDC) | payer MEDICARE, OTHER ==
[~2017-01-31 09:09] MED LIST: BRIMONIDINE 0.2% OPHTH DROPS 5 ML ONE; TIMOLOL 0.5% OPHTH DROPS ONE
[2017-01-31] MEDS: PROPARACAINE 0.5% OPHTH DROPS 15 ML ONE (09:30)
[2017-01-31] MEDS: PHENYLEPHRINE 2.5% OPHTH 2 ML DROPS ONE (09:30)
[2017-01-31] MEDS: CYCLOPENTOLATE 1% OPHTH DROPS 2 ML ONE (09:30)
[2017-01-31] MEDS: KETOROLAC 0.45% OPHTH DROPS ONE (09:40)
[2017-01-31] MEDS: LACTATED RINGERS 500 ML IV ONE (09:41)
[2017-01-31] MEDS ORDERED: MIDAZOLAM 2 MG/2 ML VIAL IVP ONE (10:20)
[2017-01-31] MEDS: CHONDR SULF/HYALURONATE SYRINGE IO ONE (10:33)
[2017-01-31] MEDS: TRIAMCIN/MOXIFLOX/VANCO 1 ML VIAL IO ONE (10:33)
[2017-01-31] MEDS: BSS/LIDOCAINE/EPINEPHRINE 1 ML SYRINGE IO ONE (10:33)
[2017-01-31] MEDS: EPINEPHrine 1 MG/ML AMP IVP ONE (10:33)
[2017-01-31] MEDS: PROPARACAINE 0.5% OPHTH DROPS 15 ML RIGHTEYE ONE (10:33)
[2017-01-31] MEDS: BRIMONIDINE 0.2% OPHTH DROPS 5 ML OPTH ONE (10:33)
[2017-01-31] MEDS: TIMOLOL 0.5% OPHTH DROPS OPTH ONE (10:33)
[2017-01-31 10:51] VITALS: BP 134/55
--- NOTE | 2017-01-31 11:12 | OPERATIVE REPORT ---
DATE OF SURGERY: 01/31/2017 00:00:00 PREOPERATIVE DIAGNOSIS: Visually significant cataract, right eye. This was her first cataract surgery. POSTOPERATIVE DIAGNOSIS: Visually significant cataract, right eye. This was her first cataract surgery. NAME OF PROCEDURE: Phacoemulsification with posterior chamber intraocular lens implant, right eye. SURGEON: Suhas Suarez MD ANESTHESIA: Monitored anesthesia care. COMPLICATIONS: None. OPERATIVE INDICATIONS: This is a 71-year-old woman with progressive vision loss in the right eye due to a 2+ nuclear sclerotic and vacuolar cataract. Best corrected visual acuity was 20/20 with glare to 20/50 in the right eye. INDICATIONS FOR SURGERY: Overall decrease in vision, difficulty seeing words on a computer screen, difficulty reading, difficulty seeing words in closed captions on TV, difficulty driving in low light or at night, and difficulty driving at night because of head lights from other vehicles and/or street lights. She also has difficulty painting, knitting, and beading. She was consented at length concerning the risks and benefits of cataract surgery after which she expressed a desire to proceed with surgery. OPERATIVE PROCEDURE: The patient was taken into OR #3 and placed under monitored anesthesia care. A surgical time-out was conducted confirming correct patient, correct procedure and correct surgical site. She was given topical anesthesia, and then prepped and draped in the usual sterile fashion. The eye was entered at the 12 and 9 o'clock positions. Intracameral Shugarcaine was injected into the anterior chamber, followed by Viscoat. A continuous tear curvilinear capsulorrhexis was performed. The nucleus was hydrodissected and phacoemulsified. The cortex was evacuated using automated infusion and aspiration. Provisc was injected into the capsular bag and a 23.0 diopter intraocular lens was inserted in the bag. Approximately 0.8 mL of a mixture of triamcinolone, moxifloxacin, and vancomycin was injected subconjunctivally in the superior quadrant for infection and inflammation prophylaxis. I/A was used to evacuate the viscoelastic materials. The eye was inflated to physiologic pressure using a balanced salt solution and found to be watertight. The patient was taken from the operating room in good condition and given postoperative instructions. JOB #: [id number] EXT JOB #:[id number] [facility]
== END 2017-01-31 09:10 | disposition home or self-care (01) ==
LOC: SDS 09:09
PROVIDERS: ATTEND Ophthalmology
PROC: 08RJ3JZ Replacement of Right Lens with Synthetic Substitute, Percutaneous Approach (ICD-10-PCS; principal; 2017-01-31 10:30)
DX: H25.811 Combined forms of age-related cataract, right eye (principal); I10 Essential (primary) hypertension; K57.92 Diverticulitis of intestine, part unspecified, without perforation or abscess without bleeding; M06.9 Rheumatoid arthritis, unspecified; Z87.891 Personal history of nicotine dependence
CPT/HCPCS: 66984; A9270; J3490; V2632

== ENCOUNTER 2017-08-12 11:42 | Outpatient (CLI) | payer MEDICARE, OTHER ==
[2017-08-12 18:54] LABS: CREATININE 0.9 mg/dL (0.4-1.0)
== END 2017-08-12 11:43 | disposition home or self-care (01) ==
LOC: LAB.S 11:42
PROVIDERS: ATTEND Physician Assistant Medical
DX: B35.1 Tinea unguium (principal); Z79.899 Other long term (current) drug therapy
CPT/HCPCS: 36415; 82565; 84450; 84460

== ENCOUNTER 2017-10-19 13:50 | Outpatient (CLI) | payer MEDICARE, OTHER | END 2017-10-19 13:51 | disposition critical access hospital (66) | LOC: EMS 13:50 | PROVIDERS: ATTEND Surgery | DX: M25.551 Pain in right hip (principal) | CPT/HCPCS: A0425; A0427; A0999 ==

== ENCOUNTER 2017-10-19 14:32 | Emergency (ER) | payer MEDICARE, OTHER ==
[2017-10-19] MEDS ORDERED: HYDROmorphone 1 MG/ML CARPUJECT IVP STA (15:41)
--- NOTE | 2017-10-19 15:44 | XRAY Report ---
Procedure Date: 10/19/2017 Accession Number: [id number] / [id number] Procedure: XR - Hip w/Pelvis 2-3V RT CPT Code: FULL RESULT: EXAM: RIGHT HIP AND PELVIS RADIOGRAPHY EXAM DATE: 10/19/2017 03:26 PM. HISTORY: R hip pain, poss dislocation. COMPARISONS: ABDOMEN/PELVIS W/O 10/07/2016. TECHNIQUE: 1 view of the pelvis and 1 view of the hip. FINDINGS: Bones: There is a bipolar right hip prosthesis. No acute fracture. Joints: The femoral head component is dislocated superiorly and lateral to the acetabular component. Soft Tissues: Normal. No soft tissue swelling. IMPRESSION: Right hip arthroplasty prosthesis with dislocation. RADIA
[2017-10-19] MEDS ORDERED: PROPOFOL 200 MG/20 ML VIAL IVP ONE (16:06)
[2017-10-19 16:36] VITALS: BP 114/54
[2017-10-19] MEDS ORDERED: PROPOFOL 200 MG/20 ML VIAL IVP STA (16:36)
--- NOTE | 2017-10-19 17:01 | XRAY Report ---
Procedure Date: 10/19/2017 Accession Number: [id number] / [id number] Procedure: XR - Pelvis 1 View CPT Code: FULL RESULT: EXAM: PELVIS RADIOGRAPHY EXAM DATE: 10/19/2017 04:51 PM. CLINICAL HISTORY: POST REDUCTION. COMPARISON: 10/19/2017 1454 hrs.. TECHNIQUE: 1 view. FINDINGS: Bones: Normal. No fracture or bone lesion. Joints: Postoperative changes from right total hip arthroplasty are again seen. Previously seen right hip dislocation has been reduced to anatomic alignment on this AP view. Soft Tissues: Normal. No soft tissue swelling. IMPRESSION: Status post interval reduction of right hip dislocation. RADIA
--- NOTE | 2017-10-19 17:03 | ED Physician Documentation ---
History of Present Illness - Stated complaint Stated Complaint: DISLOCATED HIP - Chief complaint Chief Complaint: Ext Problem - History obtained from History obtained from: Patient, EMS - History of Present Illness Timing: Today, How many hours ago (1) Pain level max: 8 Pain level now: 8 Quality: pain Improved by: rest Worsened by: movement - Additonal information Additional information: Pt with R hip replacement 2 months ago in [place], today bent over and dislocated her hip. last meal at 0900 Review of Systems Ten Systems: 10 systems reviewed and negative Constitutional: denies: Fever, Chills Nose: denies: Rhinorrhea / runny nose, Congestion Throat: denies: Sore throat Cardiac: denies: Chest pain / pressure Respiratory: denies: Cough GI: denies: Abdominal Pain, Nausea, Vomiting, Diarrhea Skin: denies: Rash PD PAST MEDICAL HISTORY - Past Medical History Cardiovascular: Hypertension Respiratory: None Endocrine/Autoimmune: None GI: Diverticulitis : None HEENT: None Psych: None Musculoskeletal: Osteoarthritis, Rheumatoid arthritis, Chronic back pain Derm: None - Past Surgical History Past Surgical History: Yes General: Cholecystectomy Ortho: Knee replacement, Spine surgery, 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 - Present Medications Home Medications: Ambulatory Orders Medication Instructions Recorded Confirmed Prednisone 5 mg PO DAILY 10/14/12 09/26/17 Amlodipine Besylate 5 mg PO DAILY #0 10/10/16 09/26/17 Leflunomide [Arava] 10 mg PO DAILY #0 10/10/16 09/26/17 Cholestyramine/Aspartame 4 gm PO DAILY 12/21/16 09/26/17 [Cholestyramine Light Packet] Calcium Carbonate/Vitamin D3 2 each PO DAILY 06/06/17 09/26/17 [Calcium 500-Vit D3 200 Tablet] Losartan [Cozaar] 50 mg PO DAILY 06/06/17 09/26/17 Multivitamin/Iron/Folic Acid 1 each PO DAILY 06/06/17 09/26/17 [Centrum Adults Tablet] Leflunomide [Arava] 10 mg PO DAILY 08/01/17 09/26/17 Hydrocodone/Acetaminophen 1 - 2 each PO Q6H PRN #14 tablet 10/19/17 [Hydrocodon-Acetaminophen 5-325] - Allergies Allergies/Adverse Reactions: Allergies Allergy/AdvReac Type Severity Reaction Status Date / Time iodine Allergy Severe Respiratory Verified 10/19/17 14:55 methotrexate Allergy Severe Respiratory Verified 10/19/17 14:55 venom-honey bee Allergy Severe Respiratory Verified 10/19/17 14:55 latex Allergy Rash Verified 10/19/17 14:55 shellfish derived AdvReac Severe "almost Verified 10/19/17 14:55 " - Social History Does the pt smoke?: No Smoking Status: Former smoker Does the pt drink ETOH?: Yes Does the pt have substance abuse?: No - Immunizations Immunizations are current?: Yes - POLST Patient has POLST: No PD ED PE NORMAL - Vitals Vital signs reviewed: Yes - General General: Alert and oriented X 3, No acute distress - HEENT HEENT: Moist mucous membranes - Neck Neck: Supple, no meningeal sign - Cardiac Cardiac: RRR - Respiratory Respiratory: No respiratory distress, Clear bilaterally - Back Back: No spinal TTP - Derm Derm: Warm and dry - Extremities Extremities: Other (R hip deformed, internally rotated. NVI. ) - Neuro Neuro: Alert and oriented X 3, No motor deficit, No sensory deficit - Psych Psych: Normal mood, Normal affect Results - Vitals Vitals: Vital Signs - 24 hr 10/19/17 10/19/17 10/19/17 14:52 16:10 16:15 Temperature 36.4 C L Heart Rate 71 79 56 L Respiratory 16 13 11 L Rate Blood Pressure 143/71 H 142/72 H O2 Saturation 93 97 10/19/17 10/19/17 10/19/17 16:18 16:25 16:26 Temperature Heart Rate 67 65 65 Respiratory 12 19 11 L Rate Blood Pressure 124/50 L 105/74 O2 Saturation 92 97 10/19/17 10/19/17 16:30 16:35 Temperature Heart Rate 54 L 58 L Respiratory 13 14 Rate Blood Pressure 107/67 114/54 L O2 Saturation 98 99 Oxygen O2 Source Nasal cannula - Rads (name of study) R hip xray Radiology: Prelim report reviewed, EMP read contemporaneously, See rad report ( Right hip arthroplasty prosthesis with dislocation. ) R hip post reduction Radiology: Prelim report reviewed, EMP read contemporaneously, See rad report ( Status post interval reduction of right hip dislocation. ) Procedures - Reduction Body part reduced: Right, Hip, prosthetic Fracture or dislocation: Dislocation Anesthesia: Conscious sedation, Dilaudid (1mg), Propofol (100mg) Hip reduction technique: Fulcrum Reduction aftercare: NV intact, Xray confirms reduction, Alignment improved, Patient tolerated well, Other (placed in a knee immobilizer) PD MEDICAL DECISION MAKING - ED course Complexity details: reviewed results, re-evaluated patient, considered differential, d/w patient ED course: Patient is a 72-year-old female with a prosthetic right hip dislocation. This was reduced under propofol sedation. Tolerated well. Has pain medication at home. Placed in a knee immobilizer to help prevent recurrent dislocation. Neurovascularly intact. Patient counseled regarding signs and symptoms for which I believe and urgent re-evaluation would be necessary. Patient with good understanding of and agreement to plan and is comfortable going home at this time This document was made in part using voice recognition software. While efforts are made to proofread this document, sound alike and grammatical errors may occur. - Sepsis Event Vital Signs: Vital Signs - 24 hr 10/19/17 10/19/17 10/19/17 14:52 16:10 16:15 Temperature 36.4 C L Heart Rate 71 79 56 L Respiratory 16 13 11 L Rate Blood Pressure 143/71 H 142/72 H O2 Saturation 93 97 10/19/17 10/19/17 10/19/17 16:18 16:25 16:26 Temperature Heart Rate 67 65 65 Respiratory 12 19 11 L Rate Blood Pressure 124/50 L 105/74 O2 Saturation 92 97 10/19/17 10/19/17 16:30 16:35 Temperature Heart Rate 54 L 58 L Respiratory 13 14 Rate Blood Pressure 107/67 114/54 L O2 Saturation 98 99 Oxygen O2 Source Nasal cannula Departure - Departure Disposition: 01 Home, Self Care Clinical Impression: Dislocation of hip prosthesis Qualifiers: Encounter type: initial encounter Qualified Code(s): T84.029A - Dislocation of unspecified internal joint prosthesis, initial encounter Condition: Good Instructions: ED Hip Replace Dislocation Reduc Follow-Up: your,doctor in 1 week [Other] Prescriptions: Hydrocodone/Acetaminophen [Hydrocodon-Acetaminophen 5-325] 1 - 2 each PO Q6H PRN #14 tablet PRN Reason: pain Comments: Return if you worsen. Wear the knee immobilizer for the next week until you are seen by your doctor or orthopedist. This will help to prevent a recurrent dislocation. Do not drink alcohol or drive while on narcotic pain medicine. Note that many narcotic pain relievers also contain tylenol/acetaminophen. Please ensure that your total dose of acetaminophen from all sources does not exceed 3 grams (3000mg) per day. You may constipated on this medication, take a stool softener such as "Colace" twice a day while you are on it. Also recommend a [id number] laxative such as senna or MiraLAX any day that you do not have a bowel movement. If you received narcotic pain medication in the emergency department, do not drive or operate machinery for the next 24 hours. Discharge Date/Time: 10/19/17 17:00
== END 2017-10-19 17:00 | disposition home or self-care (01) ==
LOC: EDUNIT# → ED 14:32
DX: T84.020A Dislocation of internal right hip prosthesis, initial encounter (principal); Z87.891 Personal history of nicotine dependence; I10 Essential (primary) hypertension
CPT/HCPCS: 27266; 72170; 73502; 94770; 96374; 99283; 99284; J1170

== ENCOUNTER 2017-11-19 11:41 | Outpatient (CLI) | payer MEDICARE, OTHER | END 2017-11-19 11:42 | disposition critical access hospital (66) | LOC: EMS 11:41 | PROVIDERS: ATTEND Surgery | DX: M25.551 Pain in right hip (principal) | CPT/HCPCS: A0425; A0427 ==

== ENCOUNTER 2017-11-19 12:19 | Emergency (ER) | payer MEDICARE, OTHER ==
--- NOTE | 2017-11-19 13:21 | ED Physician Documentation ---
History of Present Illness - Stated complaint Stated Complaint: R HIP DISLOCATION - Chief complaint Chief Complaint: Ext Problem - History obtained from History obtained from: Patient - Additonal information Additional information: 72-year-old female presents the emergency department with right hip pain. The patient has a recent total hip, And recently had a dislocation with closed reduction. Today, the patient reports that her hip became dislocated when bending over in her garden. The patient denies injury to her head, neck, torso or upper extremities. Symptoms are described as severe. No relieving factors. No radiation Review of Systems Constitutional: denies: Fever, Chills Nose: denies: Congestion Throat: denies: Sore throat Cardiac: denies: Chest pain / pressure Respiratory: denies: Dyspnea, Cough GI: denies: Abdominal Pain Skin: denies: Rash Musculoskeletal: reports: Extremity pain, Joint pain. 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 - Present Medications Home Medications: Ambulatory Orders Medication Instructions Recorded Confirmed Prednisone 5 mg PO DAILY 10/14/12 09/26/17 Amlodipine Besylate 5 mg PO DAILY #0 10/10/16 09/26/17 Leflunomide [Arava] 10 mg PO DAILY #0 10/10/16 09/26/17 Cholestyramine/Aspartame 4 gm PO DAILY 12/21/16 09/26/17 [Cholestyramine Light Packet] Calcium Carbonate/Vitamin D3 2 each PO DAILY 06/06/17 09/26/17 [Calcium 500-Vit D3 200 Tablet] Losartan [Cozaar] 50 mg PO DAILY 06/06/17 09/26/17 Multivitamin/Iron/Folic Acid 1 each PO DAILY 06/06/17 09/26/17 [Centrum Adults Tablet] Leflunomide [Arava] 10 mg PO DAILY 08/01/17 09/26/17 - Allergies Allergies/Adverse Reactions: Allergies Allergy/AdvReac Type Severity Reaction Status Date / Time iodine Allergy Severe Respiratory Verified 11/19/17 12:27 methotrexate Allergy Severe Respiratory Verified 11/19/17 12:27 venom-honey bee Allergy Severe Respiratory Verified 11/19/17 12:27 latex Allergy Rash Verified 11/19/17 12:27 shellfish derived AdvReac Severe "almost Verified 11/19/17 12:27 " - Social History Does the pt smoke?: No Smoking Status: Never smoker Does the pt drink ETOH?: Yes Does the pt have substance abuse?: No - Immunizations Immunizations are current?: Yes - POLST Patient has POLST: No PD ED PE NORMAL - General General: Alert and oriented X 3. No: No acute distress (The patient appears quite uncomfortable) - HEENT HEENT: Atraumatic, PERRL, EOMI, Moist mucous membranes, Pharynx benign - Cardiac Cardiac: RRR, Strong equal pulses - Respiratory Respiratory: No respiratory distress - Abdomen Abdomen: Soft, Non tender - Derm Derm: Normal color - Extremities Extremities: No: No deformity (The patient has a obvious right hip deformity, the patient has a normal distal dorsalis pedis pulse and brisk cap refill. There is no injury to the knee, ankle or foot. Decreased range of motion of the right hip secondary to an obvious dislocation) - Neuro Neuro: Alert and oriented X 3, Normal speech - Psych Psych: Normal affect Results - Vitals Vitals: Vital Signs - 24 hr 11/19/17 11/19/17 11/19/17 12:24 14:20 14:33 Temperature 36.6 C Heart Rate 73 66 62 Respiratory 18 14 12 Rate Blood Pressure 127/87 H 132/56 H O2 Saturation 97 94 11/19/17 11/19/17 11/19/17 14:45 14:49 14:54 Temperature Heart Rate 63 65 62 Respiratory 16 14 12 Rate Blood Pressure 139/92 H 124/52 L 128/61 O2 Saturation 95 99 100 11/19/17 11/19/17 15:00 15:18 Temperature 37 C Heart Rate 65 54 L Respiratory 21 14 Rate Blood Pressure 129/63 O2 Saturation 100 Oxygen O2 Source Room air - Rads (name of study) XR Hip Radiology: Final report received Procedures - Reduction Body part reduced: Right, Hip, prosthetic Fracture or dislocation: Dislocation Anesthesia: Conscious sedation Hip reduction technique: Allis - flex/pull/rotate Reduction aftercare: NV intact, Xray confirms reduction, Alignment improved, Patient tolerated well - Procedural sedation Sedation prep: Informed consent, Time out completed, Last meal (this AM), AHA 2 - mild disease Sedation medications: fentanyl, propofol Patient status during sedation: Responds to tactile, Vitals remained stable, Maintained airway, Recovered uneventfully Sedation recovery: Recovered uneventfully PD MEDICAL DECISION MAKING - ED course ED course: There was a successful closed reduction of the right hip with procedural sedation. I discussed the case with the on-call orthopedic surgeon and since the patient has had multiple dislocations he recommends that the patient follow- up with a specialist in joint revisions. On reevaluation the patient is resting comfortably and is fully recovered from the sedation. Presently the patient appears appropriate for discharge. I discussed with her the plan for her to see a joint revision specialist. She will get a referral from primary care. I discussed warning signs and recommended returning to the emergency department immediately for worsening or any concerns. - Sepsis Event Vital Signs: Vital Signs - 24 hr 11/19/17 11/19/17 11/19/17 12:24 14:20 14:33 Temperature 36.6 C Heart Rate 73 66 62 Respiratory 18 14 12 Rate Blood Pressure 127/87 H 132/56 H O2 Saturation 97 94 11/19/17 11/19/17 11/19/17 14:45 14:49 14:54 Temperature Heart Rate 63 65 62 Respiratory 16 14 12 Rate Blood Pressure 139/92 H 124/52 L 128/61 O2 Saturation 95 99 100 11/19/17 11/19/17 15:00 15:18 Temperature 37 C Heart Rate 65 54 L Respiratory 21 14 Rate Blood Pressure 129/63 O2 Saturation 100 Oxygen O2 Source Room air Departure - Departure Disposition: 01 Home, Self Care Clinical Impression: Hip dislocation, right Qualifiers: Encounter type: initial encounter Qualified Code(s): S73.004A - Unspecified dislocation of right hip, initial encounter Dislocation of hip prosthesis Qualifiers: Encounter type: initial encounter Qualified Code(s): T84.029A - Dislocation of unspecified internal joint prosthesis, initial encounter; Z96.649 - Presence of unspecified artificial hip joint Condition: Good Instructions: ED Hip Replace Dislocation Reduc Follow-Up: Briana Quarles ARNP [Primary Care Provider] - (Please follow-up with your primary care this week for recheck. Please ask your primary care nurse practitioner to arrange for a referral to a total hip revision specialist) Comments: Please return to the emergency department for worsening symptoms or any concerns
[2017-11-19] MEDS ORDERED: PROPOFOL 200 MG/20 ML VIAL IVP STA (13:31)
[2017-11-19] MEDS ORDERED: fentaNYL 100 MCG/2 ML VIAL IVP STA (14:02)
--- NOTE | 2017-11-19 14:21 | XRAY Report ---
Reason: pain, possible Dislocation Procedure Date: 11/19/2017 Accession Number: [id number] / [id number] Procedure: XR - Hip w/Pelvis 2-3V RT CPT Code: FULL RESULT: EXAM: RIGHT HIP AND PELVIS RADIOGRAPHY EXAM DATE: 11/19/2017 01:27 PM. HISTORY: Fall. Hip pain, possible dislocation. COMPARISONS: PELVIS 1 VIEW 10/19/2017 4:43 PM HIP W/PELVIS 2-3V RT 10/19/2017 2:54 PM. TECHNIQUE: 1 view of the pelvis and 1 view of the hip. FINDINGS: Bones: Normal. No fracture or bone lesion. Joints: Superior lateral dislocation prosthetic right femoral head out of the prosthetic right acetabulum, in the coronal plane of the right acetabulum. Marked degenerative disease L4-L5 and L5-S1. Soft Tissues: Edema right buttock and hip. IMPRESSION: Superior lateral dislocation prosthetic right femoral head out of the prosthetic right acetabulum. RADIA
--- NOTE | 2017-11-19 15:15 | XRAY Report ---
Reason: post reduction Procedure Date: 11/19/2017 Accession Number: [id number] / [id number] Procedure: XR - Hip w/Pelvis 2-3V RT CPT Code: FULL RESULT: EXAM: RIGHT HIP AND PELVIS RADIOGRAPHY EXAM DATE: 11/19/2017 02:57 PM. HISTORY: Post reduction. COMPARISONS: 1310 hrs. Today. TECHNIQUE: 1 view of the pelvis and 1 view of the hip. FINDINGS: Noncemented right total hip arthroplasty showing grossly-anatomic alignment. Dislocation of the femoral component seen before has resolved. No fracture or focal bone lesion. IMPRESSION: Noncemented right total hip arthroplasty reduced to grossly-anatomic alignment. No fracture. RADIA
[2017-11-19 15:19] VITALS: BP 129/63
== END 2017-11-19 16:30 | disposition home or self-care (01) ==
LOC: EDUNIT# → ED 12:19
DX: T84.020A Dislocation of internal right hip prosthesis, initial encounter (principal); I10 Essential (primary) hypertension; Z96.659 Presence of unspecified artificial knee joint
CPT/HCPCS: 27266; 94770; 96374; 99283; 99284

== ENCOUNTER 2018-07-02 15:22 | Outpatient (CLI) | payer MEDICARE, OTHER ==
--- NOTE | 2018-07-03 10:13 | DEXA Report ---
Reason: OSTEOPOROSIS Procedure Date: 07/02/2018 Accession Number: [id number] / [id number] Procedure: DEX - Dexa Spine and/or Hip CPT Code: FULL RESULT: EXAM: Dexa Spine and/or Hip DATE: 07/02/2018 4:11 PM CLINICAL HISTORY: OSTEOPOROSIS FOLLOW-UP TECHNIQUE: Dual energy x-ray absorptiometry (DXA) was performed on a 365[employer] System. Regions measured are the AP Spine, femoral neck, and if needed forearm. COMPARISON: 10/25/2016 In accordance with the International Society for Clinical Densitometry (ISCD) guidelines, data from previous exams may be reanalyzed using current recommendations and techniques. This is done to allow a more accurate basis for comparison with the current study. FINDINGS: The data for the lumbar spine is as follows: BMD (g/cm/cm) T-SCORE Z-SCORE REGION L1 0.807 -2.7 -1.0 L2 0.904 -2.5 -0.8 L3 1.000 -1.7 0.0 L4 1.255 0.5 2.1 TOTAL 1.008 -1.4 0.2 NOTE: All evaluable vertebrae are used for classification The data for the hip is as follows: BMD (g/cm/cm) T-SCORE Z-SCORE REGION Neck 0.626 -3.0 -1.1 TOTAL 0.704 -2.4 -0.7 NOTE: The femoral neck or total proximal femur, whichever is lowest, is used for classification. DXA RESULTS SUMMARY: Spine SCAN DATE AGE BMD CHANGE VS CHANGE VS PREVIOUS PREVIOUS % [birth year]02[birth year]2018 [age] 1[age]008 0.020 2 10/25/2016 71 0[age]988 * Denotes significant change at the 95% confidence level. Denotes dissimilar scan types or analysis methods. DXA RESULTS SUMMARY: Hip SCAN DATE AGE BMD CHANGE VS CHANGE VS PREVIOUS PREVIOUS % [birth year]02[birth year]2018 [age] 0.704 -0.050* -6.6* 10/25/2016 71 0[age]754 * Denotes significant change at the 95% confidence level. Denotes dissimilar scan types or analysis methods. IMPRESSION: THE WHO CLASSIFICATION BASED ON THE INTERNATIONAL REFERENCE STANDARD IS OSTEOPOROSIS (REFERENCE LEFT FEMORAL NECK). THERE HAS BEEN A STATISTICALLY SIGNIFICANT 6.6% DECREASE IN TOTAL LEFT HIP BONE MINERAL DENSITY SINCE 10/25/2016. THE FRACTURE RISK IS HIGH. RECOMMENDATION: Patients with diagnosis of osteoporosis or osteopenia should have regular bone mineral density assessment. For those eligible for Medicare, routine testing is allowed once every 2 years. Testing frequency can be increased for patients who have rapidly progressing disease or for those who are receiving medical therapy to restore bone mass. COMMENT: World Health Organization (WHO) definitions for osteoporosis and osteopenia: NORMAL BMD: T-score at -1.0 or higher, fracture risk is low OSTEOPENIA BMD: T-score between -1.0 and -2.5, fracture risk is increased. OSTEOPOROSIS BMD: T-score at -2.5 or lower, fracture risk is high. National Osteoporosis Foundation recommends: 1. Obtain adequate dietary calcium (at least 1200 mg per day) and vitamin D (400-800 international units per day). 2. Participate, as appropriate, in regular weightbearing and muscle-strengthening exercise. 3. Avoid tobacco use and reduce alcohol and caffeine intake. 4. For more detailed information see the website at www.NOF.org.
== END 2018-07-02 15:23 | disposition home or self-care (01) ==
LOC: DI 15:22
PROVIDERS: ATTEND Internal Medicine Hematology & Oncology
DX: M81.0 Age-related osteoporosis without current pathological fracture (principal)
CPT/HCPCS: 77080

== ENCOUNTER 2018-08-29 04:27 | Outpatient (CLI) | payer MEDICARE, OTHER | END 2018-08-29 04:28 | disposition critical access hospital (66) | LOC: EMS 04:27 | PROVIDERS: ATTEND Surgery | DX: M54.9 Dorsalgia, unspecified (principal); M25.552 Pain in left hip; W01.0XXA Fall on same level from slipping, tripping and stumbling without subsequent striking against object, initial encounter; Y92.009 Unspecified place in unspecified non-institutional (private) residence as the place of occurrence of the external cause | CPT/HCPCS: A0425; A0429 ==

== ENCOUNTER 2018-08-29 05:02 | Emergency (ER) | payer MEDICARE, OTHER ==
[2018-08-29 05:09] VITALS: BP 127/67
--- NOTE | 2018-08-29 07:09 | ED Physician Documentation ---
History of Present Illness - Stated complaint Stated Complaint: HIP PAIN - Chief complaint Chief Complaint: Trauma Ext - History obtained from History obtained from: Patient - History of Present Illness Timing: Prior to arrival - Additonal information Additional information: Patient is a 72-year-old female with history of recent lumbar surgery for which she was discharged from the hospital about 2 days ago. Patient reports he she normally has difficulty with wiping herself while on the toilet and therefore has to bend forward with her chest on her legs. Patient reports that she was doing this earlier today and lost her balance causing her to fall forward onto her hands and knees. Patient denies striking of head, loss of consciousness, or other particular injury, but is wanting to "get checked out" because of her recent surgery. Patient denies any new pain to the lumbar spine, as well as new pain to hips, legs, or arms. Patient does report that she is normally takes pain medication in the morning and feels this could be contributing to her baseline pain. No new fevers, wound complications, vomiting, or difficulty going to the bathroom. No other improving or worsening factors noted. 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 - Present Medications Home Medications: Ambulatory Orders Medication Instructions Recorded Confirmed Prednisone 5 mg PO DAILY 10/14/12 06/23/18 Amlodipine Besylate 5 mg PO DAILY #0 10/10/16 06/23/18 Leflunomide [Arava] 10 mg PO DAILY #0 10/10/16 06/23/18 Cholestyramine/Aspartame 4 gm PO DAILY 12/21/16 06/23/18 [Cholestyramine Light Packet] Calcium Carbonate/Vitamin D3 2 each PO DAILY 06/06/17 06/23/18 [Calcium 500-Vit D3 200 Tablet] Multivitamin/Iron/Folic Acid 1 each PO DAILY 06/06/17 06/23/18 [Centrum Adults Tablet] Leflunomide [Arava] 10 mg PO DAILY 08/01/17 06/23/18 - Allergies Allergies/Adverse Reactions: Allergies Allergy/AdvReac Type Severity Reaction Status Date / Time iodine Allergy Severe Respiratory Verified 08/29/18 05:09 methotrexate Allergy Severe Respiratory Verified 08/29/18 05:09 venom-honey bee Allergy Severe Respiratory Verified 08/29/18 05:09 latex Allergy Rash Verified 08/29/18 05:09 shellfish derived AdvReac Severe "almost Verified 08/29/18 05:09 " - Social History Does the pt smoke?: No Smoking Status: Never smoker Does the pt drink ETOH?: Yes Does the pt have substance abuse?: No - Immunizations Immunizations are current?: Yes - POLST Patient has POLST: No PD ED PE NORMAL - Vitals Vital signs reviewed: Yes - General General: Alert and oriented X 3, No acute distress, Well developed/nourished - HEENT HEENT: Atraumatic, Moist mucous membranes - Neck Neck: No bony TTP - Cardiac Cardiac: RRR, No murmur - Respiratory Respiratory: No respiratory distress, Clear bilaterally - Abdomen Abdomen: Soft, Non tender, Non distended, Other (Pelvis stable and non tender) - Back Back: No spinal TTP - Derm Derm: Normal color, Warm and dry, No rash, Other (Appropriate wound healing over incision from recent surgery on lumbar spine with no drainage, erythema, or other complications noted.) - Extremities Extremities: No deformity, No tenderness to palpate - Neuro Neuro: Alert and oriented X 3, No motor deficit, No sensory deficit - Psych Psych: Normal mood, Normal affect Results - Vitals Vitals: Vital Signs - 24 hr 08/29/18 05:05 Temperature 36.8 C Heart Rate 72 Respiratory 16 Rate Blood Pressure 127/67 O2 Saturation 98 Oxygen O2 Source Room air PD MEDICAL DECISION MAKING - ED course Complexity details: reviewed results, re-evaluated patient, considered differential, d/w patient ED course: Patient presenting after mechanical fall while sitting on the toilet earlier this morning.Patient fell forward, but did not strike her head or lose consciousness. Patient also denies any new injuries, but is wanting to be evaluated given her recent lumbar surgery. Patient has no other complaints except for needing morning pain medications, which were provided. Do not find evidence of head, neck, spine, chest, abdomen, or extremity trauma. Do not feel that patient fell because of an underlying disease process, but because of balance. No signs of wound infection or systemic illness present. Do not feel patient requires imaging at this time, however, given patient's significant concern for recent surgery, obtained plain films of lumbar spine and pelvis which showed postsurgical changes, but no acute findings. Upon reevaluation, patient comfortable and sleeping. At this time, feel that she is safe to discharge home and patient reports that she has a ride available. Recommended continued supportive cares, follow-up with primary care physician and surgeon, as well as strict return precautions. Departure - Departure Disposition: 01 Home, Self Care Clinical Impression: Fall Qualifiers: Encounter type: initial encounter Qualified Code(s): W19.XXXA - Unspecified fall, initial encounter Condition: Good Follow-Up: Mert Mares MD [Primary Care Provider] - Within 3 Days Comments: Please continue all home medications as previously instructed. Please follow-up with your primary care physician in the next 2 to 3 days and your surgeon as scheduled. Please continue all cares for your recent surgery as instructed. Return to the ED if experience new fall, worsening symptoms, or you have other concerns.
[2018-08-29] MEDS ORDERED: oxyCODONE 5 MG TABLET PO STA (07:33)
--- NOTE | 2018-08-29 08:32 | XRAY Report ---
Reason: recent lumbar surgery with fall forward Procedure Date: 08/29/2018 Accession Number: [id number] / [id number] Procedure: XR - Pelvis 1 View CPT Code: FULL RESULT: EXAM: PELVIS RADIOGRAPHY EXAM DATE: 08/29/2018 08:07 AM. CLINICAL HISTORY: Recent lumbar surgery with fall forward. COMPARISON: HIP W/PELVIS 2-3V RT 11/19/2017 2:44 PM. TECHNIQUE: 1 view. FINDINGS: There is redemonstration of postoperative changes consistent with a right hip arthroplasty. No fracture or dislocation is identified. There are interval postoperative changes of the lumbosacral spine. Calcifications are seen within the pelvis consistent with phleboliths. IMPRESSION: Interval postoperative changes of the lumbosacral spine. No evidence of a displaced fracture. RADIA
--- NOTE | 2018-08-29 08:36 | XRAY Report ---
Reason: recent lumbar surgery with persistent pain Procedure Date: 08/29/2018 Accession Number: [id number] / [id number] Procedure: XR - Lumbar Spine 2 View CPT Code: FULL RESULT: EXAM: LUMBOSACRAL SPINE RADIOGRAPHY EXAM DATE: 08/29/2018 08:07 AM. CLINICAL HISTORY: Recent lumbar surgery with persistent pain. COMPARISONS: None. TECHNIQUE: 3 views. FINDINGS: There are postoperative changes consistent with posterior spinal fusion of L3-S1. Postoperative changes of the right hip are noted. No displaced fracture is identified. There are no dilated loops of bowel to suggest the presence of an obstruction. Clips are noted in the right upper quadrant that most likely represent a previous cholecystectomy. IMPRESSION: Postoperative changes of the lumbosacral spine and right hip. No evidence of a displaced fracture. RADIA
== END 2018-08-29 11:00 | disposition home or self-care (01) ==
LOC: EDUNIT# → ED 05:02
DX: M25.551 Pain in right hip (principal); W18.11XA Fall from or off toilet without subsequent striking against object, initial encounter; Z98.1 Arthrodesis status; Z96.641 Presence of right artificial hip joint; Z96.659 Presence of unspecified artificial knee joint; I10 Essential (primary) hypertension
CPT/HCPCS: 72100; 72170; 99282; 99283; A9270

== ENCOUNTER 2018-09-16 | Emergency (ER) | payer MEDICARE, OTHER | END 2018-09-16 15:20 | disposition home or self-care (01) | DX: T84.020A Dislocation of internal right hip prosthesis, initial encounter (principal); Y83.8 Other surgical procedures as the cause of abnormal reaction of the patient, or of later complication, without mention of misadventure at the time of the procedure; I10 Essential (primary) hypertension; Z96.659 Presence of unspecified artificial knee joint | CPT/HCPCS: 27265; 36415; 72170; 73502; 80048; 85025; 94770; 96374; 99156; 99282; 99284; J1170 ==

== ENCOUNTER 2018-09-16 11:31 | Outpatient (CLI) | payer MEDICARE, OTHER | END 2018-09-16 11:32 | disposition critical access hospital (66) | LOC: EMS 11:31 | PROVIDERS: ATTEND Surgery | DX: M25.551 Pain in right hip (principal); Z96.641 Presence of right artificial hip joint | CPT/HCPCS: A0425; A0427 ==

== ENCOUNTER 2019-11-19 11:54 | Outpatient (CLI) | payer MEDICARE, OTHER ==
[2019-11-19 12:23] LABS: BASOPHILS # (AUTO) 0.1 10^3/uL (0.0-0.1); BASOPHILS % (AUTO) 0.8 %; EOSINOPHILS # (AUTO) 0.1 10^3/uL (0.0-0.7); EOSINOPHILS % (AUTO) 1.1 %; HGB - HEMOGLOBIN 13.8 g/dL (12.0-16.0); LYMPHOCYTES # (AUTO) 1.5 10^3/uL (1.5-3.5); LYMPHOCYTES % (AUTO) 15.1 %; MEAN CORPUSCULAR HEMOGLOBIN 29.4 pg (27.0-31.0); MEAN CORPUSCULAR VOLUME 91.9 fL (81.0-99.0); MEAN PLATELET VOLUME 8.6 fL (7.9-10.8); MONOCYTES # (AUTO) 0.6 10^3/uL (0.0-1.0); MONOCYTES % (AUTO) 5.5 %; NEUTROPHILS # (AUTO) 7.8 10^3/uL (1.5-6.6); NEUTROPHILS % (AUTO) 76.9 %; PLT - PLATELET COUNT 285 10^3/uL (130-450); RED BLOOD COUNT 4.69 10^6/uL (4.20-5.40); RED CELL DISTRIBUTION WIDTH 14.7 % (12.0-15.0); WHITE BLOOD COUNT 10.2 x10^3/uL (4.8-10.8)
[2019-11-19 12:32] LABS: ALBUMIN 3.8 g/dL (3.2-5.5); BILIRUBIN,TOTAL 0.8 mg/dL (0.2-1.0); CALCIUM 9.7 mg/dL (8.5-10.3); TOTAL PROTEIN 7.5 g/dL (6.7-8.2)
== END 2019-11-19 11:55 | disposition home or self-care (01) ==
LOC: LAB 11:54
PROVIDERS: ATTEND Internal Medicine Rheumatology
DX: M05.9 Rheumatoid arthritis with rheumatoid factor, unspecified (principal)
CPT/HCPCS: 36415; 80053; 85025; 85651

== ENCOUNTER 2020-01-13 13:52 | Outpatient (CLI) | payer MEDICARE, OTHER ==
[2020-01-13 10:45] LABS: BILIRUBIN,URINE NEGATIVE (NEGATIVE); CLARITY,URINE CLEAR (CLEAR); GLUCOSE, URINE (UA) NEGATIVE (NEGATIVE); KETONES,URINE (UA) NEGATIVE (NEGATIVE); LEUKOCYTE ESTERASE, URINE SMALL (NEGATIVE); NITRITE,URINE NEGATIVE (NEGATIVE); OCCULT BLOOD,URINE NEGATIVE (NEGATIVE); PROTEIN,URINE NEGATIVE (NEGATIVE); UROBILINOGEN,URINE 0.2 (NORMAL) E.U./dL (NORMAL)
[2020-01-13 10:52] LABS: BACTERIA,URINE Few /HPF (None Seen); RBC,URINE 0-5 /HPF (0-5); SQUAMOUS EPITHELIAL CELL,UR RARE Squamous (<= Few); WBC CLUMPS,URINE PRESENT
--- NOTE | 2020-01-13 17:11 | Ultrasound Report ---
PROCEDURE: Bladder INDICATIONS: PNEUMATOURIA TECHNIQUE: Sonographic images of the bladder were obtained. COMPARISON: CT abdomen pelvis 10/07/2016 FINDINGS: The bladder is distended with a prevoid volume of 259 cc, post void residual 29 cc. Ureteral jets are identified bilaterally. No focal masses are identified. IMPRESSION: 1. Unremarkable exam. Reviewed by: Chika Bowman MD on 01/13/2020 5:10 PM PST Approved by: Chika Bowman MD on 01/13/2020 5:10 PM PST Station ID: [id number]
== END 2020-01-13 13:53 | disposition home or self-care (01) ==
LOC: DI 13:52
PROVIDERS: ATTEND Internal Medicine
DX: R39.89 Other symptoms and signs involving the genitourinary system (principal); N32.89 Other specified disorders of bladder
CPT/HCPCS: 76857; 81001; 87086

== ENCOUNTER 2020-04-06 08:00 | Outpatient (CLI) | payer MEDICARE, OTHER ==
[2020-04-06 18:01] LABS: BASOPHILS # (AUTO) 0.1 10^3/uL (0.0-0.1); BASOPHILS % (AUTO) 0.6 %; EOSINOPHILS # (AUTO) 0.2 10^3/uL (0.0-0.7); EOSINOPHILS % (AUTO) 1.8 %; HGB - HEMOGLOBIN 13.7 g/dL (12.0-16.0); LYMPHOCYTES % (AUTO) 17.9 %; MEAN CORPUSCULAR HEMOGLOBIN 29.9 pg (27.0-31.0); MEAN CORPUSCULAR HGB CONC 31.7 g/dL (32.0-36.0); MEAN CORPUSCULAR VOLUME 94.3 fL (81.0-99.0); MEAN PLATELET VOLUME 10.3 fL (7.9-10.8); MONOCYTES # (AUTO) 0.9 10^3/uL (0.0-1.0); MONOCYTES % (AUTO) 8.3 %; NEUTROPHILS # (AUTO) 7.7 10^3/uL (1.5-6.6); PLT - PLATELET COUNT 277 10^3/uL (130-450); RED BLOOD COUNT 4.58 10^6/uL (4.20-5.40); RED CELL DISTRIBUTION WIDTH 14.4 % (12.0-15.0); WHITE BLOOD COUNT 10.9 x10^3/uL (4.8-10.8)
[2020-04-06 18:17] LABS: ALBUMIN 3.9 g/dL (3.2-5.5); ALBUMIN/GLOBULIN RATIO 1.1 (1.0-2.2); BILIRUBIN,TOTAL 0.9 mg/dL (0.2-1.0); CALCIUM 10.9 mg/dL (8.5-10.3); CREATININE 1.1 mg/dL (0.4-1.0); TOTAL PROTEIN 7.3 g/dL (6.7-8.2)
== END 2020-04-06 23:59 | disposition home or self-care (01) ==
LOC: LAB.WCP 08:00
PROVIDERS: ATTEND Internal Medicine Rheumatology
DX: M05.79 Rheumatoid arthritis with rheumatoid factor of multiple sites without organ or systems involvement (principal)
CPT/HCPCS: 36415; 80053; 85025; 85651

== ENCOUNTER 2020-04-26 14:04 | Outpatient (CLI) | payer MEDICARE, OTHER ==
--- NOTE | 2020-04-27 07:50 | Mammography Report ---
BILATERAL DIGITAL SCREENING MAMMOGRAM 3D/2D WITH EXAGGERATED CC: 04/26/2020 CLINICAL: Routine screening. Comparison is made to exams dated: 08/24/2016 mammogram, 09/09/2014 mammogram, 02/15/2014 mammogram, 02/2014 mammogram, 11/12/2012 mammogram, and 05/12/2012 mammogram - [facility]. The tissue of both breasts is predominantly fatty. There is a benign calcification in the right breast. No significant masses, calcifications, or other findings are seen in either breast. There has been no significant interval change. IMPRESSION: BENIGN There is no mammographic evidence of malignancy. A 1 year screening mammogram is recommended. This exam was interpreted at Station ID: [id number]. NOTE: For mammograms, a report in lay terms will be sent to the patient. Approximately 15% of breast malignancies will not be visualized mammographically. In the management of a palpable breast mass, a negative mammogram must not discourage biopsy of a clinically suspicious lesion. Electronically Signed By: Eric Jamison acr/penrad:04/26/2020 15:54:37 ACR BI-RADS Category 2: Benign Finding(s) 3342F PARENCHYMAL PATTERN: (F) - The breast(s) demonstrate(s) diffuse fatty replacement. BI-RADS CATEGORY: (2) - 2 RECOMMENDATION: (ANNUAL) - Recommend routine annual screening mammography. [id number] 1 year screening LATERALITY: (B)
== END 2020-04-26 14:05 | disposition home or self-care (01) ==
LOC: DI.S 14:04
PROVIDERS: ATTEND Internal Medicine
DX: Z12.31 Encounter for screening mammogram for malignant neoplasm of breast (principal)

== ENCOUNTER 2020-09-11 11:27 | Outpatient (CLI) | payer MEDICARE, OTHER | END 2020-09-11 11:28 | disposition short-term general hospital (02) | LOC: EMS 11:27 | DX: R41.0 Disorientation, unspecified (principal); R53.1 Weakness | CPT/HCPCS: A0425; A0429 ==

== ENCOUNTER 2020-10-25 16:52 | Emergency (ER) | payer MEDICARE, OTHER ==
--- NOTE | 2020-10-25 18:17 | ED Physician Documentation ---
PD HPI FEMALE - Stated complaint Stated Complaint: CHECK CATHETER - Chief complaint Chief Complaint: General - History obtained from History obtained from: Patient - History of Present Illness Timing - onset: Today Timing - details: Abrupt onset, Intermittant (having leaking of urine from around min catheter at times. Still has urine into leg bag. Family checked the tubing and seemed to be normal appearance.) Associated symptoms: Abdominal pain (had abd surgery for diverticulitis and some bladder repair. discharged from [facility] yesterday with min.). No: Fever Recently seen: Surgery ([facility] few days ago.) Review of Systems Constitutional: denies: Fever, Chills Cardiac: denies: Chest pain / pressure Respiratory: denies: Dyspnea GI: reports: Abdominal Pain. 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 - Present Medications Home Medications: Ambulatory Orders Medication Instructions Recorded Confirmed predniSONE [Prednisone] 5 mg PO DAILY 10/14/12 07/11/20 Amlodipine Besylate 5 mg PO DAILY #0 10/10/16 07/11/20 Cholestyramine/Aspartame 4 gm PO DAILY 12/21/16 07/11/20 [Cholestyramine Light Packet] Calcium Carbonate/Vitamin D3 2 each PO DAILY 06/06/17 07/11/20 [Calcium 500-Vit D3 200 Tablet] Multivitamin/Iron/Folic Acid 1 each PO DAILY 06/06/17 07/11/20 [Centrum Adults Tablet] Leflunomide [Arava] 10 mg PO DAILY 08/01/17 07/11/20 Gabapentin 300 mg PO TID 02/04/19 07/11/20 Hydroxychloroquine [Plaquenil] 200 mg PO DAILY 01/13/20 07/11/20 Oxybutynin [Ditropan] 2.5 mg PO BID 15 Days #15 tablet 10/25/20 - Allergies Allergies/Adverse Reactions: Allergies Allergy/AdvReac Type Severity Reaction Status Date / Time iodine Allergy Severe Respiratory Verified 10/25/20 17:04 methotrexate Allergy Severe Respiratory Verified 10/25/20 17:04 venom-honey bee Allergy Severe Respiratory Verified 10/25/20 17:04 adhesive tape Allergy Mild Itching Verified 10/25/20 17:04 latex Allergy Rash Verified 10/25/20 17:04 shellfish derived AdvReac Severe "almost Verified 10/25/20 17:04 " - Social History Does the pt smoke?: No Smoking Status: Never smoker Does the pt drink ETOH?: Yes Does the pt have substance abuse?: No - Immunizations Immunizations are current?: Yes - POLST Patient has POLST: No PD ED PE NORMAL - Vitals Vital signs reviewed: Yes - General General: Alert and oriented X 3, No acute distress, Well developed/nourished - Female Female : 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 Tubing not kinked, leg bag in place and has some urine in it. Bladder scanner showed minimal urine in bladder of 43 ml. ) - Back Back: No CVA TTP - Derm Derm: Normal color, Warm and dry - Extremities Extremities: No edema, No calf tenderness / cord - Neuro Neuro: Alert and oriented X 3, No motor deficit, Normal speech Results - Vitals Vitals: Vital Signs - 24 hr 10/25/20 10/25/20 10/25/20 17:04 18:49 19:08 Temperature 37.6 C 37 C Heart Rate 84 75 75 Respiratory 16 16 16 Rate Blood Pressure 123/70 133/100 H 133/100 H O2 Saturation 96 96 96 Oxygen O2 Source Room air PD MEDICAL DECISION MAKING - ED course Complexity details: considered differential (min is draining and not having urinary retention. Presume the urine out and cramps at times are bladder spasms, and can try antispasmodic.), d/w patient Departure - Departure Disposition: 01 Home, Self Care Clinical Impression: Min catheter problem Qualifiers: Encounter type: initial encounter Qualified Code(s): T83.9XXA - Unspecified complication of genitourinary prosthetic device, implant and graft, initial encounter Condition: Stable Record reviewed to determine appropriate education?: Yes Follow-Up: PIA POSADA MD [Primary Care Provider] - Prescriptions: Oxybutynin [Ditropan] 2.5 mg PO BID 15 Days #15 tablet Comments: The catheter appears to be draining appropriately with output in the leg bag and no bladder scanner showing minimal in the bladder. Considerations would be bladder spasms causing pressure and out of the urine. We can try an antispasmodic for that. If you have further episodes of urine coming out around the catheter, make sure the catheter is not kinked and is draining appropriately. Otherwise can recheck here with us if needed. Discharge Date/Time: 10/25/20 19:08
[2020-10-25] MEDS ORDERED: OXYBUTYNIN 5MG TABLET PO STA (18:47)
[2020-10-25 18:50] VITALS: BP 133/100
== END 2020-10-25 19:08 | disposition home or self-care (01) ==
LOC: ED 16:52
DX: T83.031A Leakage of indwelling urethral catheter, initial encounter (principal)
CPT/HCPCS: 51798; 99282; 99283; A9270

== ENCOUNTER 2021-01-25 08:00 | Outpatient (CLI) | payer MEDICARE, OTHER ==
[2021-01-25 18:20] LABS: EOSINOPHILS % (AUTO) 14.6 %; HCT - HEMATOCRIT 45.6 % (37.0-47.0); HGB - HEMOGLOBIN 14.7 g/dL (12.0-16.0); LYMPHOCYTES % (AUTO) 16.4 %; MEAN CORPUSCULAR HEMOGLOBIN 30.2 pg (27.0-31.0); MEAN CORPUSCULAR HGB CONC 32.2 g/dL (32.0-36.0); MEAN CORPUSCULAR VOLUME 93.8 fL (81.0-99.0); MEAN PLATELET VOLUME 10.2 fL (7.9-10.8); MONOCYTES % (AUTO) 2.5 %; NEUTROPHILS % (AUTO) 65.3 %; PLT - PLATELET COUNT 318 10^3/uL (130-450); RED BLOOD COUNT 4.86 10^6/uL (4.20-5.40); RED CELL DISTRIBUTION WIDTH 15.4 % (12.0-15.0); WHITE BLOOD COUNT 8.3 x10^3/uL (4.8-10.8)
[2021-01-25 18:25] LABS: ABNORMAL LYMPHS % (MANUAL) 0 %
[2021-01-25 18:32] LABS: ALBUMIN 4.1 g/dL (3.2-5.5); ALBUMIN/GLOBULIN RATIO 1.2 (1.0-2.2); BILIRUBIN,TOTAL 0.6 mg/dL (0.2-1.0); CALCIUM 10.1 mg/dL (8.5-10.3); CREATININE 0.8 mg/dL (0.4-1.0); POTASSIUM 3.9 mmol/L (3.5-5.0); TOTAL PROTEIN 7.6 g/dL (6.7-8.2)
[2021-01-25 21:42] LABS: BAND NEUTROPHILS % (MANUAL) 1 %; LYMPHOCYTES # (MANUAL) 1.3 10^3/uL (1.5-3.5); LYMPHOCYTES % (MANUAL) 16 %; MONOCYTES # (MANUAL) 0.3 10^3/uL (0.0-1.0); NEUTROPHILS # (MANUAL) 6.6 10^3/uL (1.5-6.6); PLATELET ESTIMATE, MANUAL NORMAL (130-450,000) (NORMAL); PLATELET MORPHOLOGY NORMAL APPEARANCE (NORMAL); RBC MORPHOLOGY (MULTIPLE) NORMAL APPEARANCE (NORMAL)
[2021-01-25 21:45] LABS: DIFFERENTIAL COMMENT MANUAL DIFFERENTIAL
== END 2021-01-25 23:59 ==
LOC: LAB.WCP 08:00
PROVIDERS: ATTEND Internal Medicine Rheumatology
DX: M06.9 Rheumatoid arthritis, unspecified (principal)
CPT/HCPCS: 36415; 80053; 85025; 85651

== ENCOUNTER 2021-04-18 16:40 | Emergency (ER) | payer MEDICARE, OTHER ==
[2021-04-18 17:00] VITALS: BP 160/82
--- NOTE | 2021-04-18 17:29 | CT Report ---
PROCEDURE: HEAD WO INDICATIONS: fall 5 weeks ago, headache/vomiting, head injury TECHNIQUE: Noncontrast 4.5 mm thick angled axial sections acquired from the foramen magnum to the vertex. For r adiation dose reduction, the following was used: automated exposure control, adjustment of mA and/or kV according to patient size. COMPARISON: None. FINDINGS: Image quality: Excellent. CSF spaces: Basal cisterns are patent. No extra-axial fluid collections. Ventricles are normal in size and shape. Brain: No midline shift. No intracranial masses or hemorrhage. Maldonado-white matter interface is norm al. Skull and face: Calvarium and visualized facial bones are intact, without suspicious lesions. Sinuses: Visualized sinuses and mastoids are clear. IMPRESSION: Negative for acute intracranial hemorrhage. No acute intracranial abnormality is seen. Age-appropriate brain parenchymal volume loss and chronic small vessel ischemic change can be seen. Reviewed by: Addy Crystal MD on 04/18/2021 4:28 PM [facility] Approved by: Addy Crystal MD on 04/18/2021 4:28 PM [facility] Station ID: [id number]
--- NOTE | 2021-04-18 18:15 | ED Physician Documentation ---
PD HPI HEAD INJURY - Stated complaint Stated Complaint: HEAD INJ/FELL OFF STEPS - Chief complaint Chief Complaint: Trauma Hd/Nk - History obtained from History obtained from: Patient - Additional information Additional information: 75yo female has headache since GLF hitting head 03/06/21, hit right adventism on tile and a bowl. Intermittent headache starting a week later occipital to B temples. 4/10 pain. N/V today. Tylenol briefly helpful. 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 HEENT: None Psych: None Musculoskeletal: Osteoarthritis, Rheumatoid arthritis, Chronic back pain Derm: None - Past Surgical History Past Surgical History: Yes General: Cholecystectomy, Bowel surgery Ortho: Hip replacement, Knee replacement, Spine surgery, 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 - Present Medications Home Medications: Ambulatory Orders Medication Instructions Recorded Confirmed predniSONE [Prednisone] 5 mg PO DAILY 10/14/12 03/20/21 Amlodipine Besylate 5 mg PO DAILY #0 10/10/16 03/20/21 Cholestyramine/Aspartame 4 gm PO DAILY 12/21/16 03/20/21 [Cholestyramine Light Packet] Calcium Carbonate/Vitamin D3 2 each PO DAILY 06/06/17 03/20/21 [Calcium 500-Vit D3 200 Tablet] Multivitamin/Iron/Folic Acid 1 each PO DAILY 06/06/17 03/20/21 [Centrum Adults Tablet] Leflunomide [Arava] 10 mg PO DAILY 08/01/17 03/20/21 Gabapentin 300 mg PO TID 02/04/19 03/20/21 Oxybutynin [Ditropan] 2.5 mg PO BID 15 Days #15 tablet 10/25/20 03/20/21 - Allergies Allergies/Adverse Reactions: Allergies Allergy/AdvReac Type Severity Reaction Status Date / Time iodine Allergy Severe Respiratory Verified 04/18/21 17:00 methotrexate Allergy Severe Respiratory Verified 04/18/21 17:00 venom-honey bee Allergy Severe Respiratory Verified 04/18/21 17:00 adhesive tape Allergy Mild Itching Verified 04/18/21 17:00 latex Allergy Rash Verified 04/18/21 17:00 shellfish derived AdvReac Severe "almost Verified 04/18/21 17:00 " - Social History Does the pt smoke?: No Smoking Status: Never smoker Does the pt drink ETOH?: Yes Does the pt have substance abuse?: No - Family History Family history: reports: Non contributory - Immunizations Immunizations are current?: Yes - POLST Patient has POLST: No PD ED PE NORMAL - Vitals Vital signs reviewed: Yes - General General: Alert and oriented X 3, No acute distress - HEENT HEENT: PERRL, EOMI - Neck Neck: Supple, no meningeal sign, No bony TTP, Other (She has some muscular tenderness in the right upper sternocleidomastoid without midline spinal tenderness.) - Neuro Neuro: Alert and oriented X 3, No motor deficit, No sensory deficit, Normal speech Eye Opening: Spontaneous Motor: Obeys Commands Verbal: Oriented GCS Score: 15 - Psych Psych: Normal mood, Normal affect Results - Vitals Vitals: Vital Signs - 24 hr 04/18/21 16:54 Temperature 36.5 C Heart Rate 79 Respiratory 16 Rate Blood Pressure 160/82 H O2 Saturation 97 Oxygen O2 Source Room air - Rads (name of study) CT Head Radiology: EMP read contemporaneously (NAD) PD MEDICAL DECISION MAKING - ED course ED course: She presents with a headache that sounds like a tension headache involving the occiput and has some tenderness of the upper sternocleidomastoid on the right without midline spinal tenderness after a fall. Cranial imaging is negative. Giant cell arteritis is considered but the headache is not primarily in the temples and she has no temporal tenderness. Departure - Departure Disposition: 01 Home, Self Care Clinical Impression: Tension headache Head injury Qualifiers: Encounter type: initial encounter Qualified Code(s): S09.90XA - Unspecified injury of head, initial encounter Condition: Good Instructions: ED Head Injury Closed, ED Headache Tension Comments: CT of your head is unremarkable. Follow-up with your primary care physician within the week for reevaluation. Return for new or worsening symptoms.
== END 2021-04-18 19:02 | disposition home or self-care (01) ==
LOC: ED 16:40
DX: G44.209 Tension-type headache, unspecified, not intractable (principal); I10 Essential (primary) hypertension
CPT/HCPCS: 99282; 99284

== ENCOUNTER 2021-08-24 13:19 | Outpatient (CLI) | payer MEDICARE, OTHER ==
--- NOTE | 2021-08-24 16:10 | DEXA Report ---
PROCEDURE: Dexa Spine and/or Hip INDICATIONS: OSTEOPOROSIS TECHNIQUE: Dual energy x-ray absorptiometry (DXA) was performed on a [employer] System. Regions measur ed are the AP Spine, femoral neck, and if needed forearm. COMPARISON: 07/02/2018 and 10/25/2016.. FINDINGS: Lumbar Spine: Bone Mineral Density 0.807 g/cm/cm,T score -3.0, osteoporosis Left Hip: Bone Mineral Density 0.673 g/cm/cm,T score -2.7, osteoporosis Left Femoral Neck: Bone Mineral Density 0.567 g/cm/cm, T score -3.4, hip arthrosis (T score greater or equal to -1.0: NORMAL) (T score from -1.1 to -2.4: OSTEOPENIA) (T score less than or equal to -2.5 to: OSTEOPOROSIS) Impression: Osteoporosis. Bone mineral density is decreased 4.4% in the interval since prior exam obtained 07/03/19 19. Patients with diagnosis of osteoporosis or osteopenia should have regular bone mineral density assess ment. For those eligible for Medicare, routine testing is allowed once every 2 years. Testing frequ ency can be increased for patients who have rapidly progressing disease or for those who are receivin g medical therapy to restore bone mass. Reviewed by: Georgina Avina MD, PhD on 08/24/2021 4:09 PM PDT Approved by: Georgina Avina MD, PhD on 08/24/2021 4:09 PM PDT Station ID: [id number]
== END 2021-08-24 13:20 | disposition home or self-care (01) ==
LOC: DI 13:19
PROVIDERS: ATTEND Internal Medicine Rheumatology
DX: M81.0 Age-related osteoporosis without current pathological fracture (principal)

== ENCOUNTER 2021-09-16 12:28 | Outpatient (CLI) | payer MEDICARE, OTHER | END 2021-09-16 12:29 | disposition critical access hospital (66) | LOC: EMS 12:28 | DX: R42 Dizziness and giddiness (principal) | CPT/HCPCS: A0425; A0429 ==

== ENCOUNTER 2021-12-28 14:59 | Outpatient (CLI) | payer MEDICARE, OTHER ==
[2021-12-28 15:18] LABS: BASOPHILS # (AUTO) 0.1 10^3/uL (0.0-0.1); BASOPHILS % (AUTO) 0.6 %; EOSINOPHILS # (AUTO) 0.1 10^3/uL (0.0-0.7); EOSINOPHILS % (AUTO) 1.3 %; HGB - HEMOGLOBIN 14.7 g/dL (12.0-16.0); LYMPHOCYTES # (AUTO) 1.6 10^3/uL (1.5-3.5); LYMPHOCYTES % (AUTO) 16.3 %; MEAN CORPUSCULAR HEMOGLOBIN 29.5 pg (27.0-31.0); MEAN CORPUSCULAR VOLUME 92.4 fL (81.0-99.0); MEAN PLATELET VOLUME 9.3 fL (7.9-10.8); MONOCYTES # (AUTO) 0.5 10^3/uL (0.0-1.0); NEUTROPHILS # (AUTO) 7.3 10^3/uL (1.5-6.6); NEUTROPHILS % (AUTO) 76.6 %; PLT - PLATELET COUNT 244 10^3/uL (130-450); RED BLOOD COUNT 4.98 10^6/uL (4.20-5.40); RED CELL DISTRIBUTION WIDTH 14.6 % (12.0-15.0); WHITE BLOOD COUNT 9.6 x10^3/uL (4.8-10.8)
[2021-12-28 15:32] LABS: ALBUMIN/GLOBULIN RATIO 1.2 (1.0-2.2); BILIRUBIN,TOTAL 0.9 mg/dL (0.2-1.0); CALCIUM 9.2 mg/dL (8.5-10.3); CREATININE 0.8 mg/dL (0.4-1.0); POTASSIUM 4.2 mmol/L (3.5-5.0); TOTAL PROTEIN 7.4 g/dL (6.7-8.2)
[2021-12-29 04:08] LABS: COMPLEMENT C3 88 mg/dL (82-167); COMPLEMENT C4 8 mg/dL (12-38)
[2021-12-29 17:08] LABS: ANTI-DNA (DS) AB QN 6 IU/mL (0-9); CENTROMERE B ANTIBODIES <0.2 AI (0.0-0.9); CHROMATIN ANTIBODIES <0.2 AI (0.0-0.9); JO-1 AB <0.2 AI (0.0-0.9); RIBOSOMAL P ANTIBODIES <0.2 AI (0.0-0.9); RNP ANTIBODIES <0.2 AI (0.0-0.9); SCLERODERMA-70 ANTIBODIES <0.2 AI (0.0-0.9); SJOGREN'S ANTI-SS-A <0.2 AI (0.0-0.9); SJOGREN'S ANTI-SS-B <0.2 AI (0.0-0.9); SMITH ANTIBODIES <0.2 AI (0.0-0.9); SMITH/RNP ANTIBODIES <0.2 AI (0.0-0.9)
[2022-01-02 10:09] LABS: ATYPICAL pANCA <1:20 titer (Neg:<1:20); CYTOPLASMIC (C-ANCA) <1:20 titer (Neg:<1:20); PERINUCLEAR (P-ANCA) <1:20 titer (Neg:<1:20)
== END 2021-12-28 15:00 | disposition home or self-care (01) ==
LOC: LAB 14:59
PROVIDERS: ATTEND Internal Medicine Rheumatology
DX: M06.9 Rheumatoid arthritis, unspecified (principal); R21 Rash and other nonspecific skin eruption
CPT/HCPCS: 36415; 80053; 85025; 85651; 86160; 86225; 86235

== ENCOUNTER 2023-01-25 11:58 | Outpatient (CLI) | payer MEDICARE, OTHER | END 2023-01-25 11:59 | disposition critical access hospital (66) | LOC: EMS 11:58 | DX: R29.810 Facial weakness (principal); R41.0 Disorientation, unspecified; R29.898 Other symptoms and signs involving the musculoskeletal system; R26.81 Unsteadiness on feet; R47.9 Unspecified speech disturbances | CPT/HCPCS: A0425; A0429 ==

== ENCOUNTER 2023-01-25 12:37 | Inpatient (IN) | payer MEDICARE, OTHER ==
--- NOTE | 2023-01-25 12:46 | ED Physician Documentation ---
PD HPI FOCAL NEURO - Stated complaint Stated Complaint: CVA - History obtained from History obtained from: Patient, EMS - Additional information Additional information: 77-year-old woman with history of rheumatoid arthritis, hypertension and bowel surgery necessitating an ostomy. She presents by ambulance for the evaluation of altered mental status and possible stroke. She lives alone in [place] and was reportedly seen by a friend of last normal yesterday around 3 PM. Today the friend could not get a hold of her on the phone so went over to evaluate her and found her altered. Patient states that she feels "disassociated." She has no other complaints. History is difficult because of altered mental status. Prehospital there was a concern for left facial droop and her blood sugar was normal. She was hypertensive. PD PAST MEDICAL HISTORY - Past Medical History Cardiovascular: Hypertension Respiratory: None Neuro: None Endocrine/Autoimmune: None GI: Diverticulitis PLYCOR OPERATOR: None : None HEENT: None Psych: None Musculoskeletal: Osteoarthritis, Rheumatoid arthritis, Chronic back pain Derm: None - Past Surgical History Past Surgical History: Yes General: Cholecystectomy, Bowel surgery Ortho: Hip replacement, Knee replacement, Spine surgery, Other /PLYCOR OPERATOR: Hysterectomy - Present Medications Home Medications: Ambulatory Orders Medication Instructions Recorded Confirmed predniSONE [Prednisone] 5 mg PO DAILY 10/14/12 07/10/21 Amlodipine Besylate 5 mg PO DAILY #0 10/10/16 07/10/21 Cholestyramine/Aspartame 4 gm PO DAILY 12/21/16 07/10/21 [Cholestyramine Light Packet] Calcium Carbonate/Vitamin D3 2 each PO DAILY 06/06/17 07/10/21 [Calcium 500-Vit D3 200 Tablet] Multivitamin/Iron/Folic Acid 1 each PO DAILY 06/06/17 07/10/21 [Centrum Adults Tablet] Leflunomide [Arava] 10 mg PO DAILY 08/01/17 07/10/21 Gabapentin 300 mg PO TID 02/04/19 07/10/21 Oxybutynin [Ditropan] 2.5 mg PO BID 15 Days #15 tablet 10/25/20 07/10/21 LORazepam [Ativan] 0.5 mg PO Q4HR PRN #15 tablet 09/16/21 Ondansetron Odt [Zofran] 4 mg TL Q6H PRN #10 tablet 09/16/21 - Allergies Allergies/Adverse Reactions: Allergies Allergy/AdvReac Type Severity Reaction Status Date / Time iodine Allergy Severe Respiratory Verified 09/16/21 13:17 methotrexate Allergy Severe Respiratory Verified 09/16/21 13:17 venom-honey bee Allergy Severe Respiratory Verified 09/16/21 13:17 adhesive tape Allergy Mild Itching Verified 09/16/21 13:17 latex Allergy Rash Verified 09/16/21 13:17 shellfish derived AdvReac Severe "almost Verified 09/16/21 13:17 " - Social History Does the pt smoke?: No Smoking Status: Never smoker Does the pt drink ETOH?: Yes Does the pt have substance abuse?: No - Immunizations Immunizations are current?: Yes - POLST Patient has POLST: No PD ED PE NORMAL - Vitals Vital signs reviewed: Yes - General General: Other (She is alert and oriented to person and place but not time or events) - HEENT HEENT: PERRL, EOMI, Other (I am not seeing an obvious facial droop) - Neck Neck: Supple, no meningeal sign, No bony TTP - Cardiac Cardiac: RRR, No murmur - Respiratory Respiratory: No respiratory distress, Clear bilaterally - Abdomen Abdomen: Normal bowel sounds, Soft, Non tender, Other (Ostomy) - Derm Derm: Normal color, Warm and dry - Extremities Extremities: No edema, No calf tenderness / cord - Neuro Eye Opening: Spontaneous Motor: Obeys Commands Verbal: Confused GCS Score: 14 - Psych Psych: Normal mood, Normal affect NIHSS - Time Time: 12:40 - Level of Consciousness Level of consciousness: (0) Alert, Keenly responsive LOC Questions: (2) Answers neither correct LOC Commands: (0) Performs both correctly - Gaze Best Gaze: (0) Normal - Visual Visual: (0) No loss - Facial Palsy Facial Palsy: (0) Normal, symmetrical movement - Motor Arms (both separate) Motor Arm (right): (0) No drift Motor Arm (left): (0) No drift - Motor Legs (both separate) Motor Leg (right): (0) No drift Motor Leg (left): (0) No drift - Limb Ataxia Limb Ataxia: (0) Absent - Sensory Sensory: (0) Normal - Best Language Best Language: (0) No aphasia - Dysarthria Dysarthria: (0) Normal - Extinction and Inattention (formally neg Extinction and inattention: (1) Visual,tactile,auditory,spatial, or personal inattention (When touching both legs she only feels me touching the left. She can feel touch on the right when not touching the left.) - Total Score/Results Total Score/Result: 3 Results - Vitals Vitals: Vital Signs - 24 hr 01/25/23 01/25/23 01/25/23 12:50 14:00 17:46 Temperature 36.4 C L 36.4 C L Heart Rate 62 56 L 61 Respiratory 18 18 18 Rate Blood Pressure 145/79 H 178/101 H 195/82 H O2 Saturation 100 100 100 01/25/23 01/25/23 18:52 20:00 Temperature Heart Rate 57 L 60 Respiratory 18 16 Rate Blood Pressure 134/74 H 158/75 H O2 Saturation 97 97 Oxygen O2 Source Room air - EKG (time done) 1338 EKG releavant findings:: EKG personally interpreted by author of this note. Relevant findings are: Rate: Rate (enter#) (53) Rhythm: NSR [place]: Normal Intervals: RBBB QRS: Normal Ischemia: Normal ST segments - Labs Labs: Laboratory Tests 01/25/23 01/25/23 01/25/23 12:18 12:18 12:18 WBC 7.8 RBC 4.85 Hgb 14.1 Hct 44.4 MCV 91.5 MCH 29.1 MCHC 31.8 L RDW 14.6 Plt Count 212 MPV 9.4 Neut # (Auto) 4.5 Lymph # (Auto) 2.1 Ma[place]ick # (Auto) 1.0 Eos # (Auto) 0.2 Baso # (Auto) 0.1 Absolute Nucleated RBC 0.00 Nucleated RBC % 0.0 PT 13.4 H INR 1.2 Sodium 135 Potassium 4.1 Chloride 101 Carbon Dioxide 27 Anion Gap 7.0 BUN 17 Creatinine 0.7 Estimated GFR (MDRD) 81 L Glucose 97 Lactic Acid Calcium 9.9 Total Bilirubin 1.2 H AST 18 ALT 12 Alkaline Phosphatase 87 Total Protein 7.3 Albumin 4.1 Globulin 3.2 Albumin/Globulin Ratio 1.3 Lipase 10 L Urine Color Urine Clarity Urine pH Ur Specific [place] Urine Protein Urine Glucose (UA) Urine Ketones Urine Occult Blood Urine Nitrite Urine Bilirubin Urine Urobilinogen Ur Leukocyte Esterase Urine RBC Urine WBC Urine WBC Clumps Ur Epithelial Cells Ur Squamous Epith Cells Urine Bacteria Ur Microscopic Review Urine Culture Comments 01/25/23 01/25/23 13:17 16:10 WBC RBC Hgb Hct MCV MCH MCHC RDW Plt Count MPV Neut # (Auto) Lymph # (Auto) [place] # (Auto) Eos # (Auto) Baso # (Auto) Absolute Nucleated RBC Nucleated RBC % PT INR Sodium Potassium Chloride Carbon Dioxide Anion Gap BUN Creatinine Estimated GFR (MDRD) Glucose Lactic Acid 1.6 Calcium Total Bilirubin AST ALT Alkaline Phosphatase Total Protein Albumin Globulin Albumin/Globulin Ratio Lipase Urine Color ORANGE Urine Clarity CLEAR Urine pH 5.5 Ur Specific [place] >=1.030 H Urine Protein 100 H Urine Glucose (UA) NEGATIVE Urine Ketones 15 H Urine Occult Blood MODERATE H Urine Nitrite NEGATIVE Urine Bilirubin NEGATIVE Urine Urobilinogen 1 (NORMAL) Ur Leukocyte Esterase TRACE H Urine RBC 11-25 H Urine WBC >25 H Urine WBC Clumps PRESENT Ur Epithelial Cells FEW Transitional Ur Squamous Epith Cells FEW Squamous Urine Bacteria Few Ur Microscopic Review INDICATED Urine Culture Comments INDICATED - Rads (name of study) CT head/CTA head neck showing small vessel ischemic change. No vascular disease Relevant Findings:: Final report received, EMP independent interpretation of test PD Medical Decision Making - ED course ED course: 77-year-old woman presents with altered mental status with last known normal of 3 PM yesterday. EMS thought she had a left facial droop which I do not. She might have some inattention to the right leg. Otherwise she is more just encephalopathic. So no clear stroke on exam. Work-up in the emergency department demonstrated CT head and CT angiography of the head and neck which were without acute changes. She had an abdominal CT showing 4 mm nonobstructing left renal pelvis stone, findings of colectomy, a lung nodule. Blood work was basically unremarkable and she has a positive urinalysis. She was administered Rocephin after blood cultures for UTI and decision to admit was made at approximately 3:35 PM, but no beds are available in the hospital she was she will be boarding in the emergency department. Her med list has prednisone on it, but review of the external medication history does not show any fills in the last 180 days, so I do not think she is currently taking prednisone. She also has not filled her amlodipine, but has been somewhat hypertensive here. The only medication that actually has been filled its been her leflunomide. At 8:44 PM I was told by the ice house supervisor that a bed has opened up and telehealth consultation placed for admission. Departure - Departure Disposition: 66 [facility] DC/Xfer Clinical Impression: Pulmonary nodule Altered mental status Qualifiers: Altered mental status type: delirium Qualified Code(s): R41.0 - Disorientation, unspecified UTI (urinary tract infection) Qualifiers: Urinary tract infection type: site unspecified Hematuria presence: without hematuria Qualified Code(s): N39.0 - Urinary tract infection, site not specified Condition: Serious Forms: PCP List
[2023-01-25 13:05] LABS: BASOPHILS # (AUTO) 0.1 10^3/uL (0.0-0.1); BASOPHILS % (AUTO) 0.6 %; EOSINOPHILS # (AUTO) 0.2 10^3/uL (0.0-0.7); EOSINOPHILS % (AUTO) 1.9 %; HCT - HEMATOCRIT 44.4 % (37.0-47.0); HGB - HEMOGLOBIN 14.1 g/dL (12.0-16.0); LYMPHOCYTES # (AUTO) 2.1 10^3/uL (1.5-3.5); LYMPHOCYTES % (AUTO) 26.5 %; MEAN CORPUSCULAR HEMOGLOBIN 29.1 pg (27.0-31.0); MEAN CORPUSCULAR HGB CONC 31.8 g/dL (32.0-36.0); MEAN CORPUSCULAR VOLUME 91.5 fL (81.0-99.0); MEAN PLATELET VOLUME 9.4 fL (7.9-10.8); MONOCYTES % (AUTO) 12.3 %; NEUTROPHILS # (AUTO) 4.5 10^3/uL (1.5-6.6); NEUTROPHILS % (AUTO) 58.4 %; PLT - PLATELET COUNT 212 10^3/uL (130-450); RED BLOOD COUNT 4.85 10^6/uL (4.20-5.40); RED CELL DISTRIBUTION WIDTH 14.6 % (12.0-15.0); WHITE BLOOD COUNT 7.8 x10^3/uL (4.8-10.8)
[2023-01-25 13:12] LABS: INR 1.2 (0.8-1.2); PT - PROTHROMBIN TIME 13.4 secs (9.9-12.6)
[2023-01-25 13:32] LABS: GLUCOSE, URINE (UA) NEGATIVE (NEGATIVE); KETONES,URINE (UA) 15 mg/dL (NEGATIVE); LEUKOCYTE ESTERASE, URINE TRACE (NEGATIVE); NITRITE,URINE NEGATIVE (NEGATIVE); OCCULT BLOOD,URINE MODERATE (NEGATIVE); PH,URINE 5.5 PH (5.0-7.5); PROTEIN,URINE 100 mg/dL (NEGATIVE); UROBILINOGEN,URINE 1 (NORMAL) E.U./dL (NORMAL)
[2023-01-25 13:35] LABS: BILIRUBIN,URINE NEGATIVE (NEGATIVE); CLARITY,URINE CLEAR (CLEAR); ICTOTEST,URINE NEGATIVE
[2023-01-25 13:41] LABS: ALBUMIN 4.1 g/dL (3.2-5.5); ALBUMIN/GLOBULIN RATIO 1.3 (1.0-2.2); BILIRUBIN,TOTAL 1.2 mg/dL (0.2-1.0); CALCIUM 9.9 mg/dL (8.5-10.3); CREATININE 0.7 mg/dL (0.6-1.3); POTASSIUM 4.1 mmol/L (3.5-4.5); TOTAL PROTEIN 7.3 g/dL (6.4-8.9)
[2023-01-25 14:03] LABS: WBC CLUMPS,URINE PRESENT; WBC,URINE >25 /HPF (0-5)
[2023-01-25 14:04] LABS: BACTERIA,URINE Few /HPF (None Seen); EPITHELIAL CELLS,UR FEW Transitional /HPF (<= Few); SQUAMOUS EPITHELIAL CELL,UR FEW Squamous (<= Few)
[2023-01-25] MEDS ORDERED: cefTRIAXone 1 GM VIAL IVP STA (14:36)
--- NOTE | 2023-01-25 15:23 | CT Report ---
PROCEDURE: HEAD WO INDICATIONS: cva sx TECHNIQUE: Noncontrast 4.5 mm thick angled axial sections acquired from the foramen magnum to the vertex. For r adiation dose reduction, the following was used: automated exposure control, adjustment of mA and/or kV according to patient size. COMPARISON: 04/18/2021 FINDINGS: Image quality: Excellent. CSF spaces: Basal cisterns are patent. No extra-axial fluid collections. Ventricles are normal in size and shape. Brain: No midline shift. No intracranial masses or hemorrhage. Maldonado-white matter interface is norm al. Age-related volume loss and moderate to severe small vessel ischemic change. Intracranial caroti d calcifications. Skull and face: Calvarium and visualized facial bones are intact, without suspicious lesions. Sinuses: Visualized sinuses and mastoids are clear. IMPRESSION: No acute intracranial pathology. Age-related volume loss and moderate to severe small vessel ischemic change. Reviewed by: Yovani Beasley MD on 01/25/2023 3:22 PM PST Approved by: Yovani Beasley MD on 01/25/2023 3:22 PM PST Station ID: [id number]
--- NOTE | 2023-01-25 15:26 | CT Report ---
PROCEDURE: CT Angio Head/Neck INDICATIONS: cva sx TECHNIQUE: Pre-contrast 4.5 mm thick sections acquired from the foramen magnum to the vertex. After the adminis tration of intravenous contrast, 1 mm thick sections acquired from the aortic arch through the [place] of [place]. Post-contrast 4.5 mm thick sections then re-acquired from the foramen magnum to the vert ex. 3-dimensional fksapzm-jziizkaji-oslovjpess (MIP) and/or volume rendering reformats were acquired of the central intracranial vasculature and neck separately. For radiation dose reduction, the foll owing was used: automated exposure control, adjustment of mA and/or kV according to patient size. CONTRAST: See chart COMPARISON: CT head from the same date FINDINGS: Image quality: Excellent. BRAIN: CSF spaces: Ventricles are normal in size and shape. Basal cisterns are patent. No extra-axial flu id collections. Brain: No midline shift. No intracranial bleeds or masses. Maldonado-white matter interface appears int act. Age-related volume loss and moderate to severe small vessel ischemic change. Skull and face: Calvarium and facial bones appear intact, without suspicious lesions. Orbits appear normal. Sinuses: Sinuses and mastoids are clear. HEAD CT ANGIOGRAPHY: Anterior circulation: Intracranial internal carotid arteries are normal in size and flow. The flow within the paired anterior cerebral arteries is normal and symmetric. The flow within the middle cer ebral arteries is normal and symmetric. The anterior communicating artery is seen. No aneurysms are seen. Posterior circulation: Visualized portions of the vertebral arteries demonstrate normal caliber, and join to form a normal appearing basilar artery. Flow within the posterior cerebral arteries is norm al and symmetric. No aneurysms are seen. NECK CT ANGIOGRAPHY: Carotid system: The great vessels demonstrate a conventional anatomy as they arise from the aortic a rch. The origins of the common carotid arteries appear patent. The common carotid arteries demonstr ate normal caliber and courses. The bifurcation regions are both widely patent. The internal caroti d arteries demonstrate normal calibers and courses. Posterior circulation: The origins of the vertebral arteries both appear widely patent. The more scott perior extracranial portions of both vertebral arteries also demonstrate normal courses and calibers. They join to form a normal appearing basilar artery. Soft tissues: Visualized neck soft tissues demonstrate no suspicious abnormalities. Bones: No suspicious bony lesions. Visualized cervical spine appears normally aligned. IMPRESSION: 1. Unremarkable CTA head. No stenosis, aneurysm, occlusion, or focal filling defect. 2. Patent carotids. The estimate of stenosis included in the report of the imaging study was calculated using the NASCET method Reviewed by: Yovani Beasley MD on 01/25/2023 3:25 PM PST Approved by: Yovani Beasley MD on 01/25/2023 3:25 PM PST Station ID: [id number]
--- NOTE | 2023-01-25 15:36 | CT Report ---
PROCEDURE: ABDOMEN/PELVIS WO INDICATIONS: uti w encephalopathy TECHNIQUE: A CT scan of the abdomen and pelvis was performed without the use of intravenous contrast. Images we re recorded and evaluated at appropriate window settings. Reformats: coronal and sagittal. For radiat ion dose reduction, the following was used: automated exposure control, adjustment of mA and/or kV ac cording to patient size. COMPARISON: CT abdomen and pelvis dated 10/07/2016. FINDINGS: Image quality: Excellent. Lung bases and heart: There is a nodular, masslike lesion in the right major fissure at the right ofelia g base measuring 0.7 x 2.0 cm. This was not present on the previous study. Liver: No solid mass. Gallbladder and biliary tree: Gallbladder surgically absent. No dilated ducts. Spleen: No splenomegaly. Pancreas: No pancreatic ductal dilation. Adrenals: No adrenal nodule. Kidneys and ureters: No hydronephrosis. No renal cystic lesion which requires follow up. No solid mas s. There is a nonobstructing stone noted, floating in the left renal pelvis measuring 4 mm in diamete r. There is mild left caliectasis. Reference axial image 23 of series 2. Bowel and peritoneum: Interval distal colectomy and colostomy. There is a Ohara's pouch present. No dilated loops. Lymph nodes: No central or retroperitoneal adenopathy. Vessels: No infrarenal aortic aneurysm. PELVIS Reproductive organs: Suspect remote hysterectomy. No adnexal masses.. Bladder: No wall thickness, accounting for underdistention. Pelvic lymph nodes: No pelvic adenopathy by size criteria. Bones: Total right hip arthroplasty with significant lower pelvic metallic artifact. Remote decompres sive laminectomy and posterior lateral urszula and pedicle screw fixation spanning from L2 through S1. No evidence of hardware failure or loosening. Other: No significant ventral or inguinal hernia. IMPRESSION: 1. A 4 mm stone is floating in the left renal pelvis. It is currently nonobstructing. It may potentia lly intermittently obstruct at the ureterovesical junction. There is mild left caliectasis. 2. Interval partial distal colectomy with colostomy. 3. Development of a nodular masslike lesion in the right major fissure measuring 0.7 x 2.0 cm. 4. Remote cholecystectomy and probable remote hysterectomy. Comment: Recommend nonemergent chest CT to evaluate possible pulmonary mass in the right major fissur e. Reviewed by: Yovani Beasley MD on 01/25/2023 3:34 PM PST Approved by: Yovani Beasley MD on 01/25/2023 3:34 PM PST Station ID: [id number]
[2023-01-25] MEDS ORDERED: ONDANSETRON 4 MG/2 ML VIAL IVP PRN (15:40)
[2023-01-25] MEDS ORDERED: ACETAMINOPHEN 500 MG TABLET PO PRN (15:40)
[2023-01-25] MEDS ORDERED: iohexoL-300 100 ML VIAL IVP ONE (17:13)
--- NOTE | 2023-01-25 21:41 | HISTORY & PHYSICAL EXAMINATION ---
Chief Complaint - Chief Complaint Chief Complaint: confusion History of Present Illness - Admitted From Admitted From:: home - History Obtained From History obtained from: patient, ER staff - History of Present Illness HPI Comment/Other: Ms Pearl is a 77 yo F with hx rheumatoid arthritis, hypertension and ostomy s/p bowel surgery. Presents to the ER via EMS for evaluation of confusion, altered mental status. Last seen normal by friends at 3 PM yesterday. Patient reported feeling "disassociated" today, she was found by confused by her friend who went to visit today. Patient lives alone in [place]. At time of my evaluation patient is oriented to self, she is aware she is in the hospital, but not the city, not oriented to date. She is at not able to tell me why she is in the hospital. Denies headache, dizziness, weakness/numbness in any extremities. Denies abd pain, n/v. Denies any changes in ostomy output, no blood. Denies dysuria, hematuria or changes in urinary frequency. Denies cp, sob, cough, fevers/chills. Per ER provider there was concern for facial droop by EMS, this was not visualized by ER physician evaluation. CT head/CTA head and neck no acute abnormalities. History - Past Medical History Cardiovascular: reports: Hypertension Respiratory: reports: None Neuro: reports: None Endocrine/Autoimmune: reports: None GI: reports: Diverticulitis IP TECHNOLOGY TRANSACTIONS ATTORNEY: reports: None : reports: None HEENT: reports: None Psych: reports: None Musculoskeletal: reports: Osteoarthritis, Rheumatoid arthritis, Chronic back pain Derm: reports: None MRSA Hx?: Yes Other Past Medical History: has colostomy - Past Surgical History General: reports: Cholecystectomy, Bowel surgery Ortho: reports: Hip replacement, Knee replacement, Spine surgery, Other /IP TECHNOLOGY TRANSACTIONS ATTORNEY: reports: Hysterectomy - Family & Social History Social History Notes: 1 glass wine/day, no tobacco in 20+yrs s/p 1/2ppd. has 2 cats - POLST Patient has POLST: No Meds/Allgy - Home Medications Home Medications: Ambulatory Orders Medication Instructions Recorded Confirmed predniSONE [Prednisone] 5 mg PO DAILY 10/14/12 07/10/21 Amlodipine Besylate 5 mg PO DAILY #0 10/10/16 07/10/21 Cholestyramine/Aspartame 4 gm PO DAILY 12/21/16 07/10/21 [Cholestyramine Light Packet] Calcium Carbonate/Vitamin D3 2 each PO DAILY 06/06/17 07/10/21 [Calcium 500-Vit D3 200 Tablet] Multivitamin/Iron/Folic Acid 1 each PO DAILY 06/06/17 07/10/21 [Centrum Adults Tablet] Leflunomide [Arava] 10 mg PO DAILY 08/01/17 07/10/21 Gabapentin 300 mg PO TID 02/04/19 07/10/21 Oxybutynin [Ditropan] 2.5 mg PO BID 15 Days #15 tablet 10/25/20 07/10/21 LORazepam [Ativan] 0.5 mg PO Q4HR PRN #15 tablet 09/16/21 Ondansetron Odt [Zofran] 4 mg TL Q6H PRN #10 tablet 09/16/21 - Allergies Allergies/Adverse Reactions: Allergies Allergy/AdvReac Type Severity Reaction Status Date / Time iodine Allergy Severe Respiratory Verified 09/16/21 13:17 methotrexate Allergy Severe Respiratory Verified 09/16/21 13:17 venom-honey bee Allergy Severe Respiratory Verified 09/16/21 13:17 adhesive tape Allergy Mild Itching Verified 09/16/21 13:17 latex Allergy Rash Verified 09/16/21 13:17 shellfish derived AdvReac Severe "almost Verified 09/16/21 13:17 " Review of Systems - Constitutional Constitutional: reports: Fatigue. denies: Fever, Chills, Malaise - Eyes Eyes: denies: Blurred vision, Field loss - Ears, Nose & Throat Ears, Nose & Throat: denies: Hearing loss - Cardiovascular Cariovascular: denies: Irregular heart rate, Palpitations, Chest pain, Lig htheadedness, Syncope - Respiratory Respiratory: denies: Cough, Sputum production, Wheezing, SOB at rest - Gastrointestinal Gastrointestinal: denies: Abdominal pain, Abdominal distention, Constipation, Diarrhea, Change in bowel habits, Nausea, Vomiting - Genitourinary Genitourinary: denies: Dysuria, Frequency, Urgency, Hematuria - Musculoskeletal Musculoskeletal: denies: Muscle pain, Back pain - Integumentary Integumentary: denies: Rash, Pruritis - Neurological Neurological: reports: Memory problems. denies: Focal weakness, Headache, Dizziness - All Other Systems All Other Systems: reports: Reviewed and negative Prior Level of Functionality: ambulates with cane, lives independently Exam - Vital Signs Reviewed Vital Signs: Yes Vital Signs: Vital Signs x48h Temp Pulse Resp BP Pulse Ox 01/25/23 21:13 64 15 166/74 H 98 01/25/23 20:00 60 16 158/75 H 97 01/25/23 18:52 57 L 18 134/74 H 97 01/25/23 17:46 36.4 C L 61 18 195/82 H 100 01/25/23 14:00 56 L 18 178/101 H 100 - Physical Exam General Appearance: positive: No acute distress, Alert Eyes Bilateral: positive: Normal inspection ENT: positive: ENT inspection nml Neck: positive: Nml inspection Cardiovascular: positive: Regular rate & rhythm Skin: positive: Color nml, No rash Neurologic/Psychiatric: positive: Disoriented to place (knows hospital, not city), Disoriented to time. negative: Disoriented to person (able to tell me her full name) Conclusion/Plan - Lab Results Lab results reviewed: Yes Fish Bones: 01/25/23 12:18 01/25/23 12:18 - Diagnostic Imaging Results Diagnostic Imaging Results: positive: Final report reviewed - Other Other Results/Comments: Assessment/Plan: Acute metabolic encephalopathy secondary to UTI -CT head and CTA head/neck negative for acute abnormalities -Continue IV ceftriaxone -F/u urine and blood cultures -Lactic 1.6 -Gentle IV fluid hydration -Ambulation w assistance HTN -Resume amlodipine Hx RA -Continue home med (confirmed recently filled by ER provider pharmacy review) Other home meds not recently filled - hold for now pending further verification. DVT ppx: Lovenox sc Full code (?medical POA, NOK - social work consult, patient lives independently, no family available at this time) Core Measures - Anticipated LOS I expect patient to be DC'd or transferred within 96 hours.: Yes - DVT/VTE - Prophylaxis VTE/DVT Device ordered at admit?: Yes Telemedicine Consult Details - Provider Location & Consult Time Telemedicine consultation conducted via videoconferencing?: Yes List names and roles of persons who participated in consult:: Brooklyn Pearl (patient), José Luis Mcdermott () Telemedicine provider location:: [place], [place]
[2023-01-25] MEDS ORDERED: SODIUM CHLORIDE FLUSH 0.9% 10 ML SYRINGE IVP PRN (21:54)
[2023-01-25] MEDS: SODIUM CHLORIDE 0.9% 1,000 ML IV SCH (23:16)
[2023-01-26] MEDS: SODIUM CHLORIDE FLUSH 0.9% 10 ML SYRINGE IVP SCH ×4 (01:11→23:56)
[2023-01-26 05:36] LABS: BASOPHILS # (AUTO) 0.1 10^3/uL (0.0-0.1); BASOPHILS % (AUTO) 0.8 %; EOSINOPHILS # (AUTO) 0.4 10^3/uL (0.0-0.7); HCT - HEMATOCRIT 40.4 % (37.0-47.0); HGB - HEMOGLOBIN 12.9 g/dL (12.0-16.0); LYMPHOCYTES # (AUTO) 1.9 10^3/uL (1.5-3.5); LYMPHOCYTES % (AUTO) 25.6 %; MEAN CORPUSCULAR HGB CONC 31.9 g/dL (32.0-36.0); MEAN CORPUSCULAR VOLUME 90.8 fL (81.0-99.0); MEAN PLATELET VOLUME 9.3 fL (7.9-10.8); NEUTROPHILS # (AUTO) 3.9 10^3/uL (1.5-6.6); NEUTROPHILS % (AUTO) 54.2 %; PLT - PLATELET COUNT 215 10^3/uL (130-450); RED BLOOD COUNT 4.45 10^6/uL (4.20-5.40); RED CELL DISTRIBUTION WIDTH 14.4 % (12.0-15.0); WHITE BLOOD COUNT 7.3 x10^3/uL (4.8-10.8)
[2023-01-26 05:49] LABS: CALCIUM 9.2 mg/dL (8.5-10.3); CREATININE 0.7 mg/dL (0.6-1.3); POTASSIUM 3.6 mmol/L (3.5-4.5)
[2023-01-26] MEDS ORDERED: PANTOPRAZOLE 40 MG TABLET PO SCH (07:00)
[2023-01-26] MEDS: ENOXAPARIN 40 MG/0.4 ML SYRINGE SUBQ SCH (08:09)
[2023-01-26] MEDS: Leflunomide [Arava] 10 MG PO SCH (08:10)
[2023-01-26] MEDS: amLODIPine 5 MG TABLET PO SCH (08:12)
[2023-01-26] MEDS ORDERED: cefTRIAXone 1 GM in SODIUM CHLORIDE 0.9% MINIBAG 100 ML IV SCH (09:00)
--- NOTE | 2023-01-26 10:14 | PHARMACY PROGRESS NOTE ---
- Best Possible Medication History Admit Date and Time: 01/25/23 8047 Processed by: Pharmacy Medication History completed: Yes Patient Interview: Completed Secondary Source(s): Pharmacy records, Insurance records As the person ultimately responsible for medication therapy, providers are able to order a medication from an existing home medication list in [facility] via the "Reconcile Routine" prior to Confirmation of that medication by high school learning support teacher. Such practice is discouraged except when the physician, in their clinical judgment, deems that a medical need exists for a medication without regard to previous use.
[2023-01-26] MEDS ORDERED: ACETAMINOPHEN 500 MG TABLET PO PRN (10:16)
[2023-01-26] MEDS ORDERED: ONDANSETRON 4 MG/2 ML VIAL IVP PRN (10:18)
[2023-01-26] MEDS: SODIUM CHLORIDE 0.9% 1,000 ML IV SCH (14:09)
[2023-01-26] MEDS ORDERED: GADOTERATE MEGLUMINE 10 MMOL/20 ML VIAL ONE (15:15)
[2023-01-26] MEDS ORDERED: diazePAM INJ 5 MG/ML SYRINGE IVP ONE (15:36)
[2023-01-26] MEDS ORDERED: GADOTERATE MEGLUMINE 10 MMOL/20 ML VIAL IVP ONE (16:27)
--- NOTE | 2023-01-26 16:44 | PROVIDER PROGRESS NOTE ---
Subjective - Prog Note Date Prog Note Date: 01/26/23 Prog Note Time: 16:42 - Subjective Subjective: Patient was brought to the emergency room by EMS for strokelike symptoms. Her last known normal was 3 PM on the . She was seen by a friend. When her friend called on the morning of admission there was no answer so the friend came to the patient's apartment. There was a slight facial droop. No apparent deficits. In the ER she did have a head CT which had no acute intracranial pathology. And angiography had an unremarkable CT of the head. Patent carotids. Further workup did not show dehydration. White cell count was normal. But urinalysis was felt to be possibly infected showing UTI. Unfortunately she has transitional epithelial cells and squamous epithelial cells so I do not know how to read this interpretation. She was started on her home meds of Norvasc and Arava. But she has not received her Arava. She also got ceftriaxone in the emergency room and ceftriaxone today. When I saw her this morning there was no facial droop. She was surprised that she was here for her illness of a UTI and altered mental status and confusion. She thinks that she remembers feeling "spacey" but does not feel spacey this morning. She had a physical therapy ordered for evaluation today. As the morning went on, a facial droop returned. It was very evident. No slurred speech. But her symptoms were isolated to only her face. It was left face, and left arm and leg were unaffected. Current Medications - Current Medications Current Medications: Active Medications Acetaminophen (Acetaminophen 500 Mg Tablet) 1,000 mg PO Q6H PRN PRN Reason: Mild Pain Or Fever>38c(100.4f) Amlodipine Besylate (Amlodipine 5 Mg Tablet) 5 mg PO DAILY [facility] Last Admin: 01/26/23 08:12 Dose: 5 mg Enoxaparin Sodium (Enoxaparin 40 Mg/0.4 Ml Syringe) 40 mg SUBQ DAILY [facility] Last Admin: 01/26/23 08:09 Dose: 40 mg Sodium Chloride (Normal Saline 0.9%) 1,000 mls @ 75 mls/hr IV .[id number] [facility] Last Admin: 01/26/23 14:09 Dose: 75 mls/hr Ceftriaxone Sodium 1 gm/ (Sodium Chloride) 100 mls @ 200 mls/hr IV DAILY [facility] Ondansetron HCl (Ondansetron 4 Mg/2 Ml Vial) 4 mg IVP Q6HR PRN PRN Reason: Nausea / Vomiting Pantoprazole Sodium (Pantoprazole 40 Mg Tablet) 40 mg PO QDAC [facility] Leflunomide [Arava] (10 Mg) 1 each PO DAILY [facility] Last Admin: 01/26/23 08:10 Dose: Not Given Sodium Chloride (Sodium Chloride Flush 0.9% 10 Ml Syringe) 10 ml IVP PRN PRN PRN Reason: NEEDED PER PROVIDER ORDERS Sodium Chloride (Sodium Chloride Flush 0.9% 10 Ml Syringe) 10 ml IVP 0100,0900,1700 [facility] Last Admin: 01/26/23 08:10 Dose: Not Given Leflunomide [Arava] 10 mg PO DAILY 08/01/17 Objective - Vital Signs/Intake & Output Reviewed Vital Signs: Yes Vital Signs: Vital Signs x48h Pulse Resp BP Pulse Ox 01/26/23 08:55 65 18 164/71 H 96 Intake & Output: Intake & Output 01/23/23 01/24/23 01/25/23 01/26/23 23:59 23:59 23:59 23:59 Intake Total 5 1965 Output Total 600 Balance 5 1365 - Objective General Appearance: positive: Alert, Other (Thin elderly female who looks stated age, left facial droop and complaining of fatigue) Eyes Bilateral: positive: PERRL, EOMI ENT: positive: No signs of dehydration Neck: positive: No JVD. negative: Stiff neck Respiratory: positive: No respiratory distress. negative: Wheezes, Rales, Rhonchi Cardiovascular: positive: Regular rate & rhythm Abdomen: positive: Non-tender, No organomegaly, Nml bowel sounds, No distention Skin: positive: Warm, Dry Extremities: positive: Full ROM, No pedal edema Neurologic/Psychiatric: positive: Motor nml, Disoriented to time. negative: CN's nml (2-12) - Lab Results Fish Bones: 01/26/23 05:22 01/26/23 05:22 Other Labs: Lab Results x24hrs 01/26/23 01/26/23 Range/Units 05:22 05:22 WBC 7.3 (4.8-10.8) x10^3/uL RBC 4.45 (4.20-5.40) 10^6/uL Hgb 12.9 (12.0-16.0) g/dL Hct 40.4 (37.0-47.0) % MCV 90.8 (81.0-99.0) fL MCH 29.0 (27.0-31.0) pg MCHC 31.9 L (32.0-36.0) g/dL RDW 14.4 (12.0-15.0) % Plt Count 215 (130-450) 10^3/uL MPV 9.3 (7.9-10.8) fL Neut # (Auto) 3.9 (1.5-6.6) 10^3/uL Lymph # (Auto) 1.9 (1.5-3.5) 10^3/uL Taylor # (Auto) 1.0 (0.0-1.0) 10^3/uL Eos # (Auto) 0.4 (0.0-0.7) 10^3/uL Baso # (Auto) 0.1 (0.0-0.1) 10^3/uL Absolute Nucleated RBC 0.00 x10^3/uL Nucleated RBC % 0.0 /100WBC Sodium 139 (135-145) mmol/L Potassium 3.6 (3.5-4.5) mmol/L Chloride 106 (101-111) mmol/L Carbon Dioxide 26 (21-32) mmol/L Anion Gap 7.0 (6-13) BUN 18 (6-20) mg/dL Creatinine 0.7 (0.6-1.3) mg/dL Estimated GFR (MDRD) 81 L (>89) Glucose 89 (74-104) mg/dL Calcium 9.2 (8.5-10.3) mg/dL ABX Reporting Has patient been on IV antibiotics over the past 48 hours?: Yes Assessment/Plan - Problem List (1) Symptoms of cerebrovascular accident Impression: That was her presenting complaint. CT of the head as well as CT angiogram of the head and neck were unremarkable. By description in the history and physical and nursing, the facial droop she presented with resolved. It then came back in the late morning hours of today. However she has no associated focal deficits with this. 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 It is painless. No other deficits. Plan: MRI of head with and without Change status from observation to inpatient since she will stay for further evaluation of possible stroke (2) Altered mental status Impression: She said that she felt spacey. Her friend described her as disoriented. The ER exam shows normal facial symmetry. She was oriented. This morning she knows she is in the hospital, not quite clear on the date. She knows is January and that Thanksgi just happened. Her speech structure is lucid. She is just vague. I do not know what her baseline is. I may have what her friends can visit her and compare which she is now to which she usually is at home to help me. Qualifiers: Altered mental status type: disorientation Qualified Code(s): R41.0 - Disorientation, unspecified (3) UTI (urinary tract infection) Impression: Possible. No fever, white cell count normal. Main manifestation would be altered mental status. She has transitional cells and epithelial cells. She is on empiric Rocephin. Will await to see what culture shows. If she ends up growing multiple organisms I am going to be stopping the Rocephin Qualifiers: Urinary tract infection type: site unspecified Hematuria presence: without hematuria Qualified Code(s): N39.0 - Urinary tract infection, site not specified
--- NOTE | 2023-01-26 16:48 | MRI Report ---
PROCEDURE: BRAIN W/WO INDICATIONS: new facial droop CONTRAST: CLARISCAN 10.4 ML TECHNIQUE: Noncontrast axial T1 spin echo, axial T2 fast spin echo, sagittal and axial FLAIR, coronal T2 fast sp in echo, axial gradient echo, axial diffusion and ADC through the brain. After the administration of contrast, axial and coronal T1 spin echo with fat saturation through the brain. COMPARISON: Correlation is made with head CT, 01/25/2023. FINDINGS: Image quality: Diagnostic, with note made of motion artifact. The motion artifact particularly affec ts the postcontrast images. CSF spaces: Basal cisterns are patent. No extra-axial fluid collections. Ventricles are normal in size and shape. Brain: There is abnormal diffusion-weighted signal seen within the right thalamus, as on series 7 im age 35, measuring 7 mm. There is associated dark signal seen on the ADC map. Developing T2-weighted s ignal can be seen at this site. No midline shift. No intracranial bleeds or masses. No abnormal intracranial enhancement. There is cerebral volume loss for age. There is periventricular white matter chronic small vessel ischemic c hange. The brainstem appears normal. No chronic ischemic insults. Normal intravascular flow voids are present. Prominent perivascular spaces are incidentally noted. In this patient with this given history, scrutiny is given to the course of the right facial nerve, i ncluding within the parotid glands. To the limits of this standard protocol study, no findings of mas ses or abnormal enhancement can be seen, including within the right parotid gland. Skull and face: Calvarial marrow is normal in signal. Orbits appear normal. Sinuses: Sinuses and mastoids appear clear. IMPRESSION: There is a 7 mm subacute infarction seen involving the right thalamus. Reviewed by: Addy Crystal MD on 01/26/2023 3:47 PM [place] Approved by: Addy Crystal MD on 01/26/2023 3:47 PM [place] Station ID: [id number]
[2023-01-27] MEDS: SODIUM CHLORIDE 0.9% 1,000 ML IV SCH ×2 (04:40→18:05)
[2023-01-27] MEDS: PANTOPRAZOLE 40 MG TABLET PO SCH (06:18)
[2023-01-27] MEDS: cefTRIAXone 1 GM in SODIUM CHLORIDE 0.9% MINIBAG 100 ML IV SCH (08:16)
[2023-01-27] MEDS: amLODIPine 5 MG TABLET PO SCH (08:16)
[2023-01-27] MEDS: ENOXAPARIN 40 MG/0.4 ML SYRINGE SUBQ SCH (08:16)
[2023-01-27] MEDS: SODIUM CHLORIDE FLUSH 0.9% 10 ML SYRINGE IVP SCH ×2 (08:17→16:05)
[2023-01-27] MEDS: Leflunomide [Arava] 10 MG PO SCH (08:17)
--- NOTE | 2023-01-27 11:54 | PROVIDER PROGRESS NOTE ---
Progress Note January 27, 2023 11:54 AM Yesterday afternoon she developed left facial droop. We had already evaluated her for possible stroke when she first came in because of altered mental status and her CT of the head was negative. She also had a left facial droop on admission but it went away. Then the left facial droop came back and was very evident on physical exam with minimal left arm weakness, and no leg weakness. I repeated her evaluation with an MRI and the MRI showed a 7 mm subacute infarction involving the right thalamus. Given the patient's history attention was given to the facial nerve within the parotid glands and to the limits of the standard procedure, no findings of masses or abnormal enhancement were seen. This morning she continues to have a facial droop. She denies dysphagia, dysarthria. When I shared her results with her her response was "well, shit". Exam: 36.8, heart rate 68, blood pressure 172/69, respirations 18, 95% on room air. 5 foot 3 inch female who is 52 kg Asleep. When I call her name she easily opens her eyes. Continues to have the left facial droop and speech is slow but not dysarthric. Neck is supple Lungs are clear with slow, shallow, unlabored respiration. Diminished at bases Regular rate and rhythm Abdomen soft, nontender, normal bowel sounds. Extremities with no edema. Neurologically she is able to sit up in bed, transfer to a standing position and with a gated belt go to a wheelchair which then takes her to the bathroom. When she stands, posture is rigid. She says that she has had back surgeries and fusions. She does not really lift up her feet to walk fluidly. Face is tends to be flat and expression. Psychomotor slowing when she speaks. I am not finding a left leg weakness. However left arm is slightly weaker than right arm. Definite left facial droop. She has quite a bit of loss of muscle mass. Especially evident in her hands and she says this because she has arthritis. At her baseline she is able to use a cane, front wheel walker and walk within her home. She states that she is independent with her home. She still does her own grocery shopping, cooking and cleaning, and gardening. Assessment/Plan - Problem List (1) Stroke Impression: Facial droop was her presenting complaint as well as confusion. Then it resolved. Then it returned yesterday afternoon and MRI of the head is positive after CT of head with CT angiogram were negative. Plan: Start her on aspirin and Plavix Monitor telemetry for A-fib Monitor blood pressure and allow permissive hypertension for systolic up to 180 Today is Saturday, echo available on Saturday. I do not know if she will be there then but I will order an echo. I will discuss case with PT tomorrow. They are not here today. Patient will most likely need to be discharged to long-term facility since she does not have help at home, and daughter lives on [facility]. I will also call her daughter today. (2) Altered mental status Impression: She said that she felt spacey. Her friend described her as disoriented and with a facial droop. The ER exam showed normal facial symmetry. She was oriented. 01/26 am, she knew she is in the hospital, not quite clear on the date. She knew it was January and that just happened. Sentence structure is intact and appropriate just slow. I do not think she is at baseline from the description in the chart of being completely independent at home. In the slowing I am seeing is most likely due to her stroke. Today, she knows that it is January, the day after Thanks (it's 2 days) and that she is in the hospital. When I tell that she had a stroke she is very unhappy Qualifiers: Altered mental status type: disorientation Qualified Code(s): R41.0 - Disorientation, unspecified (3) UTI (urinary tract infection) Impression: No fever, white cell count normal. Main manifestation would be altered mental status. She has transitional cells and epithelial cells. She is on empiric Rocephin. Culture is growing gram-positive cocci. She is not growing multiple organisms. Today is Day #2 dose (She did not get one in the ER) I will stop after 3rd dose since no fever and no WBC and no symptoms. Qualifiers: Urinary tract infection type: site unspecified Hematuria presence: without hematuria Qualified Code(s): N39.0 - Urinary tract infection, site not specified
[2023-01-27] MEDS ORDERED: CLOPIDOGREL 300 MG TABLET PO ONE (12:30)
[2023-01-27] MEDS: ASPIRIN EC 81 MG TABLET PO SCH (12:54)
[2023-01-28] MEDS: SODIUM CHLORIDE FLUSH 0.9% 10 ML SYRINGE IVP SCH ×3 (00:11→17:13)
[2023-01-28] MEDS: PANTOPRAZOLE 40 MG TABLET PO SCH (06:26)
[2023-01-28] MEDS: SODIUM CHLORIDE 0.9% 1,000 ML IV SCH ×2 (07:33→21:31)
[2023-01-28] MEDS: ENOXAPARIN 40 MG/0.4 ML SYRINGE SUBQ SCH (08:59)
[2023-01-28] MEDS: CLOPIDOGREL 75 MG TABLET PO SCH (08:59)
[2023-01-28] MEDS: cefTRIAXone 1 GM in SODIUM CHLORIDE 0.9% MINIBAG 100 ML IV SCH (08:59)
[2023-01-28] MEDS: amLODIPine 5 MG TABLET PO SCH (08:59)
[2023-01-28] MEDS: ASPIRIN EC 81 MG TABLET PO SCH (08:59)
[2023-01-28] MEDS: Leflunomide [Arava] 10 MG PO SCH (09:00)
--- NOTE | 2023-01-28 13:36 | PROVIDER PROGRESS NOTE ---
Progress Note January 28, 2023 3 PM I spent a long conversation with her daughter, Janelle Thorne at [phone], updating her last night about mom status. Mom's been fiercely independent and has been reluctant to consider any caregivers. His daughter has offered to have her moved down to where she lives in [place] mom [place] wanted to[place] she has [place] is her daughter's [id number], and a sister. They are not DPOA's. But they periodically come in to check in on [place]. I have already explained to the patient that she needs to go to a assisted because of rehab. She is understandably upset about that. Her daughter will make arrangements to take care of her kittens while she is in rehab. They need to figure out if the patient is going to return back to home with caregivers or if the patient is brennan slowly transition to an assisted living facility, etc. Currently ref[facility] have been [facility] to [facility], [facility]. Patient is unchanged with regards to density of hemiplegia. She is to continues to have the same problems without any change. Denies dysphagia. Has some element of dysarthria. Active Medications Acetaminophen (Acetaminophen 500 Mg Tablet) 1,000 mg PO Q6H PRN PRN Reason: Mild Pain Or Fever>38c(100.4f) Last Admin: 01/28/23 08:58 Dose: 1,000 mg Amlodipine Besylate (Amlodipine 5 Mg Tablet) 5 mg PO DAILY [facility] Last Admin: 01/28/23 08:59 Dose: 5 mg Aspirin (Aspirin Ec 81 Mg Tablet) 81 mg PO DAILY [facility] Last Admin: 01/28/23 08:59 Dose: 81 mg Clopidogrel Bisulfate (Clopidogrel 75 Mg Tablet) 75 mg PO DAILY [facility] Last Admin: 01/28/23 08:59 Dose: 75 mg Enoxaparin Sodium (Enoxaparin 40 Mg/0.4 Ml Syringe) 40 mg SUBQ DAILY [facility] Last Admin: 01/28/23 08:59 Dose: 40 mg Sodium Chloride (Normal Saline 0.9%) 1,000 mls @ 75 mls/hr IV .[id number] [facility] Last Admin: 01/28/23 07:33 Dose: 75 mls/hr Ceftriaxone Sodium 1 gm/ (Sodium Chloride) 100 mls @ 200 mls/hr IV DAILY [facility] Last Infusion: 01/28/23 09:30 Dose: Infused Multivitamins/Minerals (Multivitamin W/Minerals Tablet) 1 tab PO DAILYWM [facility] Ondansetron HCl (Ondansetron 4 Mg/2 Ml Vial) 4 mg IVP Q6HR PRN PRN Reason: Nausea / Vomiting Pantoprazole Sodium (Pantoprazole 40 Mg Tablet) 40 mg PO QDAC [facility] Last Admin: 01/28/23 06:26 Dose: 40 mg Leflunomide [Arava] (10 Mg) 1 each PO DAILY [facility] Last Admin: 01/28/23 09:00 Dose: Not Given Sodium Chloride (Sodium Chloride Flush 0.9% 10 Ml Syringe) 10 ml IVP PRN PRN PRN Reason: NEEDED PER PROVIDER ORDERS Sodium Chloride (Sodium Chloride Flush 0.9% 10 Ml Syringe) 10 ml IVP 0100,0900,1700 [facility] Last Admin: 01/28/23 09:00 Dose: Not Given Home Meds: Leflunomide [Arava] 10 mg PO DAILY 08/01/17 Exam: Temperature 36.9, heart rate 80, blood pressure 158/84, respirations 16, 98% on room air. Thin, alert elderly female who has psychomotor slowing. She cannot pronounce words but finds difficulty forming the syllables and using her tongue and lips. Neck is supple Lungs are clear Regular rate and rhythm Abdomen is soft and nontender, normal bowel sounds. She is incontinent of urine and is using a pure wick. Extremities do not have edema. She has joint deformities of rheumatoid arthritis especially in the index finger of right hand. No acute synovitis in wrists, hands, knees. Neurologically she is oriented to person, place, situation but can be very forgetful. Slow response times. When I described her to her daughter, daughter states that mom is usually a very fast talker, sharp on the uptake, and this is a definite status that is below her baseline. She has the left facial droop, left body weakness. She can lift up her left arm but cannot hold it up against pressure. She can lift up her leg, again cannot hold it up against pressure. Lab: Last labs were January 26 and a normal CBC and normal BMP. Urine culture grew out strep viridans from January 25. Blood culture was negative. Assessment/Plan - Problem List (1) Right thalamic stroke Impression: Facial droop was her presenting complaint as well as confusion. Then it resolved. Then it returned 01/26 afternoon and MRI of the head was positive after CT of head with CT angiogram were negative. The MRI confirms a right thalamic stroke. I started her on aspirin and Plavix. I have had her on telemetry to monitor for A-fib and no arrhythmia has been present. Blood pressure has been stable and has not needed to be treated. I am allowing permissive hypertension. The highest she has been is 172/69 at 9 this morning. All of the time she has been in the 150s over 80s.She is eating anywhere between 75 to 100% of her food. Oral fluid intake is approximately 300 cc a day.Not very much. As such I have her on 75 cc a day of normal saline. Plan: Case discussed with physical therapy and they do still feel the patient should go to long term facility for physical rehab Daughter was updated by social work and case management may Echocardiogram will be ordered. Today is an avoidable day and I anticipate she will still be here tomorrow to get the echo. Encourage water intake to at least a liter a day (2) Altered mental status Impression: She said that she felt spacey. Her friend described her as disoriented and with a facial droop. The ER exam showed normal facial symmetry. She was oriented. 01/26 am, she knew she is in the hospital, not quite clear on the date. She knew it was January and that just happened. Sentence structure continues to be intact and appropriate, just slow. She is not at baseline from the description in the chart of being completely independent at home. Or by the description of her daughter. Her psychomotor slowing is most likely due to her stroke. After theBut she does that is January,. She knows the year. She knows where she is and why she is here. Qualifiers: Altered mental status type: disorientation Qualified Code(s): R41.0 - Disorientation, unspecified (3) UTI (urinary tract infection) Impression: No fever, white cell count normal. Main manifestation would be altered mental status. She has transitional cells and epithelial cells. She is on empiric Rocephin since 01/25. Culture ended up growing strep viridans. Today is Day #4 dose (She did not get one in the ER but did get one on the floor). Blood cultures are negative so I do not suspect bacteremia. She is going to be gett ing an echo because of the stroke but not because of suspicion for endocarditis. I will stop antibiotics today since she has received 4 doses and is asymptomatic. Qualifiers: Urinary tract infection type: site unspecified Hematuria presence: without hematuria Qualified Code(s): N39.0 - Urinary tract infection, site not specified
[2023-01-28] MEDS: MULTIVITAMIN W/MINERALS TABLET PO SCH (17:13)
[2023-01-29] MEDS: SODIUM CHLORIDE FLUSH 0.9% 10 ML SYRINGE IVP SCH ×3 (03:36→20:29)
[2023-01-29] MEDS: PANTOPRAZOLE 40 MG TABLET PO SCH (06:26)
[2023-01-29] MEDS: MULTIVITAMIN W/MINERALS TABLET PO SCH (07:59)
[2023-01-29] MEDS: ASPIRIN EC 81 MG TABLET PO SCH (08:00)
[2023-01-29] MEDS: CLOPIDOGREL 75 MG TABLET PO SCH (08:00)
[2023-01-29] MEDS: amLODIPine 5 MG TABLET PO SCH (08:00)
[2023-01-29] MEDS: Leflunomide [Arava] 10 MG PO SCH (08:00)
[2023-01-29] MEDS: ENOXAPARIN 40 MG/0.4 ML SYRINGE SUBQ SCH (08:00)
--- NOTE | 2023-01-29 09:12 | CT Report ---
PROCEDURE: HEAD WO INDICATIONS: stroke, worse symptoms TECHNIQUE: Noncontrast 4.5 mm thick angled axial sections acquired from the foramen magnum to the vertex. For r adiation dose reduction, the following was used: automated exposure control, adjustment of mA and/or kV according to patient size. COMPARISON: CT head 01/25/2023, MRI brain 01/26/2023 FINDINGS: Image quality: Excellent. CSF spaces: Basal cisterns are patent. No extra-axial fluid collections. Ventricles are symmetric in size and shape. Brain: No midline shift. No intracranial masses or hemorrhage. Small hypodensity in the right thala angie region is consistent with the known infarct. No significant mass effect or hemorrhagic conversion . Moderate scattered and confluent hypodensities in the subcortical and periventricular white matter are most commonly seen in setting of chronic microvascular ischemic changes. Age-related cerebral and cerebellar volume loss is seen. Intracranial vascular calcifications are noted in the internal carot id arteries. Skull and face: Calvarium and visualized facial bones are intact, without suspicious lesions. Sinuses: Visualized sinuses and mastoids are clear. IMPRESSION: Evolving lacunar infarct in the right thalamus. No mass effect or hemorrhagic conversion. No new intr acranial abnormality. Reviewed by: Mando Menezes MD on 01/29/2023 9:10 AM [facility] [place] Approved by: Mando Menezes MD on 01/29/2023 9:10 AM PST Station ID: [id number]
[2023-01-29 10:49] LABS: BASOPHILS # (AUTO) 0.1 10^3/uL (0.0-0.1); BASOPHILS % (AUTO) 0.9 %; EOSINOPHILS # (AUTO) 0.2 10^3/uL (0.0-0.7); EOSINOPHILS % (AUTO) 2.3 %; HCT - HEMATOCRIT 43.2 % (37.0-47.0); HGB - HEMOGLOBIN 14.3 g/dL (12.0-16.0); LYMPHOCYTES # (AUTO) 1.3 10^3/uL (1.5-3.5); MEAN CORPUSCULAR HGB CONC 33.1 g/dL (32.0-36.0); MEAN CORPUSCULAR VOLUME 90.6 fL (81.0-99.0); MONOCYTES # (AUTO) 1.1 10^3/uL (0.0-1.0); MONOCYTES % (AUTO) 13.7 %; NEUTROPHILS # (AUTO) 5.2 10^3/uL (1.5-6.6); NEUTROPHILS % (AUTO) 65.8 %; PLT - PLATELET COUNT 197 10^3/uL (130-450); RED BLOOD COUNT 4.77 10^6/uL (4.20-5.40); RED CELL DISTRIBUTION WIDTH 14.3 % (12.0-15.0); WHITE BLOOD COUNT 7.9 x10^3/uL (4.8-10.8)
[2023-01-29 11:04] LABS: ALBUMIN 3.7 g/dL (3.2-5.5); ALBUMIN/GLOBULIN RATIO 1.1 (1.0-2.2); BILIRUBIN,TOTAL 0.8 mg/dL (0.2-1.0); CALCIUM 9.4 mg/dL (8.5-10.3); CREATININE 0.6 mg/dL (0.6-1.3); POTASSIUM 3.4 mmol/L (3.5-4.5)
[2023-01-29] MEDS: SODIUM CHLORIDE 0.9% 1,000 ML IV SCH (11:05)
--- NOTE | 2023-01-29 15:53 | PROVIDER PROGRESS NOTE ---
Assessment/Plan - Problem List (1) Right thalamic stroke Assessment/Plan: Facial droop was her presenting complaint on 01/25, as well as confusion. Then it resolved. Then it returned 01/26 afternoon and MRI of the head was positive after CT of head with CT angiogram were negative. The MRI confirms a right thalamic stroke. She was started on aspirin and Plavix. On telemetry she has not had A-fib and no arrhythmia present. Blood pressure allowed permissive hypertension for 2 days. (The highest BP was 172/69 yesterday). She was eating 75 to 100% of her food and 300 cc fluid a day, as such she was on iv NS at 75 cc/hr Yesterday evening she seemed weaker to the RN. A CT head was repeated today and shows the R thalamic stroke, no other findings. Today she was much weaker when working with PT and OT>> was slow to follow commands, has left-sided neglect, looks to the right, is less communicative. Echocardiogram read today and showed normal LVEF and RVEF, no clot, and no shunt by color Doppler, no saline "bubble" study was done. Plan: PT and OT recommend patient go to intermediate facility for rehab. She was accepted at [facility] when medically cleared Cont aspirin and Plavix. Start high dose statin qpm. Check her fasting lipid panel. (2) UTI (urinary tract infection) Impression: No fever, and white cell count was normal. Main manifestation was her altered mental status. She had transitional cells and epithelial cells in U/A. She was on empiric Rocephin since 01/25. Blood cultures are negative to date. Urine culture ended up growing strep viridans. She got 4 days of antibx which was then stopped since she had no urinary complaints Plaan: Since she is less alert today than yesterday, we will assure that she does not have a climbing WBC or fever, before she is discharged - Current Meds Current Meds: Current Medications Generic Name Dose Route Start Last Admin Trade Name Freq PRN Reason Stop Dose Admin Acetaminophen 1,000 mg 01/26/23 10:16 01/28/23 08:58 Acetaminophen 500 Mg Tablet PO 1,000 mg Q6H PRN Administration Mild Pain Or Fever>38c(100.4f) Amlodipine Besylate 5 mg 01/26/23 09:00 01/29/23 08:00 Amlodipine 5 Mg Tablet PO 5 mg DAILY GOYO Administration Aspirin 81 mg 01/27/23 13:00 01/29/23 08:00 Aspirin Ec 81 Mg Tablet PO 81 mg DAILY GOYO Administration Clopidogrel Bisulfate 75 mg 01/28/23 09:00 01/29/23 08:00 Clopidogrel 75 Mg Tablet PO 75 mg DAILY GOYO Administration Enoxaparin Sodium 40 mg 01/26/23 09:00 01/29/23 08:00 Enoxaparin 40 Mg/0.4 Ml Syringe SUBQ 40 mg DAILY GOYO Administration Sodium Chloride 1,000 mls @ 75 mls/hr 01/25/23 23:00 01/29/23 11:05 Normal Saline 0.9% IV 75 mls/hr .[id number] GOYO Administration Multivitamins/Minerals 1 tab 01/28/23 17:00 01/29/23 07:59 Multivitamin W/Minerals Tablet PO 1 tab DAILYWM GOYO Administration Pantoprazole Sodium 40 mg 01/27/23 07:00 01/29/23 06:26 Pantoprazole 40 Mg Tablet PO 40 mg QDAC GOYO Administration Leflunomide [Arava] 1 each 01/26/23 09:00 01/29/23 08:00 10 Mg PO Not Given DAILY GOYO Sodium Chloride 10 ml 01/26/23 01:00 01/29/23 08:00 Sodium Chloride Flush 0.9% 10 Ml Syringe IVP Not Given 0100,0900,1700 GOYO - Lab Result Fish Bone Diagrams: 01/29/23 10:44 01/29/23 10:44 - Diagnostic Imaging Results Diagnostic Imaging Results: Final report reviewed - Additional Planning My Orders: My Active Orders 01/29/23 Evaluate and Treat OT [OT] Routine Evaluate and Treat PT [PT] Routine Subjective - Subjective Patient Reports: Resting Comfortably, Pain (c/o ankle pain, says she gets it at home sometimes and "takes Prednisone for it") Objective Vital Signs: Vital Signs - 24 hr 01/28/23 01/28/23 01/29/23 15:47 23:40 07:44 Temperature 37.0 C 37.0 C Heart Rate [ 66 74 77 Brachial] Respiratory 18 16 Rate Blood Pressure 155/62 H 168/76 H 154/72 H [Left Brachial artery] O2 Saturation 96 95 Oxygen O2 Source Room air I&O (Last 24 Hrs): Intake and Output Totals x24h 11/26/23 11/27/23 11/28/23 23:59 23:59 23:59 Intake Total 3686.75 3072.5 1720 Output Total 2650 2600 1800 Balance 1036.75 472.5 -80 General: Other (Lethargic, R gaze preference, answers with soft voice 3-4 word sentences) HEENT: Mucous membr. moist/pink Neck: Supple Neuro: Other (L-sided neglect, L sided weakness) Cardiovascular: Regular rate, No murmurs Respiratory: No respiratory distress Abdomen: Normal bowel sounds, No tenderness Extremities: No clubbing, No edema, No tenderness/swelling - Results Results: Laboratory Results WBC 7.9 x10^3/uL (4.8-10.8) 01/29/23 10:44 RBC 4.77 10^6/uL (4.20-5.40) 01/29/23 10:44 Hgb 14.3 g/dL (12.0-16.0) 01/29/23 10:44 Hct 43.2 % (37.0-47.0) 01/29/23 10:44 MCV 90.6 fL (81.0-99.0) 01/29/23 10:44 MCH 30.0 pg (27.0-31.0) 01/29/23 10:44 MCHC 33.1 g/dL (32.0-36.0) 01/29/23 10:44 RDW 14.3 % (12.0-15.0) 01/29/23 10:44 Plt Count 197 10^3/uL (130-450) 01/29/23 10:44 MPV 9.0 fL (7.9-10.8) 01/29/23 10:44 Neut # (Auto) 5.2 10^3/uL (1.5-6.6) 01/29/23 10:44 Lymph # (Auto) 1.3 10^3/uL (1.5-3.5) L 01/29/23 10:44 [place] # (Auto) 1.1 10^3/uL (0.0-1.0) H 01/29/23 10:44 Eos # (Auto) 0.2 10^3/uL (0.0-0.7) 01/29/23 10:44 Baso # (Auto) 0.1 10^3/uL (0.0-0.1) 01/29/23 10:44 Absolute Nucleated RBC 0.00 x10^3/uL 01/29/23 10:44 Nucleated RBC % 0.0 /100WBC 01/29/23 10:44 PT 13.4 secs (9.9-12.6) H 01/25/23 12:18 INR 1.2 (0.8-1.2) 01/25/23 12:18 Sodium 133 mmol/L (135-145) L 01/29/23 10:44 Potassium 3.4 mmol/L (3.5-4.5) L 01/29/23 10:44 Chloride 101 mmol/L (101-111) 01/29/23 10:44 Carbon Dioxide 25 mmol/L (21-32) 01/29/23 10:44 Anion Gap 7.0 (6-13) 01/29/23 10:44 BUN 8 mg/dL (6-20) 01/29/23 10:44 Creatinine 0.6 mg/dL (0.6-1.3) 01/29/23 10:44 Estimated GFR (MDRD) 96 (>89) 01/29/23 10:44 Glucose 111 mg/dL (74-104) H 01/29/23 10:44 Lactic Acid 1.6 mmol/L (0.5-2.2) 01/25/23 16:10 Calcium 9.4 mg/dL (8.5-10.3) 01/29/23 10:44 Total Bilirubin 0.8 mg/dL (0.2-1.0) 01/29/23 10:44 AST 21 IU/L (10-42) 01/29/23 10:44 ALT 13 IU/L (10-60) 01/29/23 10:44 Alkaline Phosphatase 76 IU/L (42-121) 01/29/23 10:44 Ammonia 25.1 umol/L (18-72) 01/29/23 10:44 Total Protein 7.0 g/dL (6.4-8.9) 01/29/23 10:44 Albumin 3.7 g/dL (3.2-5.5) 01/29/23 10:44 Globulin 3.3 g/dL (2.1-4.2) 01/29/23 10:44 Albumin/Globulin Ratio 1.1 (1.0-2.2) 01/29/23 10:44 Lipase 10 U/L (11-82) L 01/25/23 12:18 Urine Color ORANGE 01/25/23 13:17 Urine Clarity CLEAR (CLEAR) 01/25/23 13:17 Urine pH 5.5 PH (5.0-7.5) 01/25/23 13:17 Ur Specific [place] >=1.030 (1.002-1.030) H 01/25/23 13:17 Urine Protein 100 mg/dL (NEGATIVE) H 01/25/23 13:17 Urine Glucose (UA) NEGATIVE mg/dL (NEGATIVE) 01/25/23 13:17 Urine Ketones 15 mg/dL (NEGATIVE) H 01/25/23 13:17 Urine Occult Blood MODERATE (NEGATIVE) H 01/25/23 13:17 Urine Nitrite NEGATIVE (NEGATIVE) 01/25/23 13:17 Urine Bilirubin NEGATIVE (NEGATIVE) 01/25/23 13:17 Urine Urobilinogen 1 (NORMAL) E.U./dL (NORMAL) 01/25/23 13:17 Ur Leukocyte Esterase TRACE (NEGATIVE) H 01/25/23 13:17 Urine RBC 11-25 /HPF (0-5) H 01/25/23 13:17 Urine WBC >25 /HPF (0-5) H 01/25/23 13:17 Urine WBC Clumps PRESENT 01/25/23 13:17 Ur Epithelial Cells FEW Transitional /HPF (<= Few) 01/25/23 13:17 Ur Squamous Epith Cells FEW Squamous (<= Few) 01/25/23 13:17 Urine Bacteria Few /HPF (None Seen) 01/25/23 13:17 Ur Microscopic Review INDICATED 01/25/23 13:17 Urine Culture Comments INDICATED 01/25/23 13:17 - Procedures Procedures: Procedures REPLACEMENT OF RIGHT LENS WITH SYNTH SUB, PERC APPROACH (01/31/17)
[2023-01-29] MEDS ORDERED: ATORVASTATIN 40 MG TABLET PO SCH (21:00)
[2023-01-30] MEDS: SODIUM CHLORIDE 0.9% 1,000 ML IV SCH (00:20)
[2023-01-30] MEDS: SODIUM CHLORIDE FLUSH 0.9% 10 ML SYRINGE IVP SCH ×3 (00:21→16:45)
[2023-01-30] MEDS: PANTOPRAZOLE 40 MG TABLET PO SCH (05:36)
[2023-01-30 06:00] LABS: BASOPHILS % (AUTO) 0.8 %; EOSINOPHILS % (AUTO) 1.8 %; HCT - HEMATOCRIT 39.7 % (37.0-47.0); HGB - HEMOGLOBIN 13.1 g/dL (12.0-16.0); LYMPHOCYTES % (AUTO) 18.9 %; MEAN CORPUSCULAR HEMOGLOBIN 29.5 pg (27.0-31.0); MEAN CORPUSCULAR VOLUME 89.4 fL (81.0-99.0); MEAN PLATELET VOLUME 9.6 fL (7.9-10.8); MONOCYTES % (AUTO) 16.3 %; NEUTROPHILS % (AUTO) 61.9 %; PLT - PLATELET COUNT 194 10^3/uL (130-450); RED BLOOD COUNT 4.44 10^6/uL (4.20-5.40); RED CELL DISTRIBUTION WIDTH 14.2 % (12.0-15.0); WHITE BLOOD COUNT 9.9 x10^3/uL (4.8-10.8)
[2023-01-30 06:12] LABS: ABNORMAL LYMPHS % (MANUAL) 0 %
[2023-01-30 06:23] LABS: BUN - BLOOD UREA NITROGEN 8 mg/dL (6-20); CARBON DIOXIDE - CO2 25 mmol/L (21-32); CHLORIDE 102 mmol/L (101-111); CHOL/HDL RATIO 2.2 (<4.4); CHOLESTEROL 116 mg/dL; CREATININE 0.5 mg/dL (0.6-1.3); GFR - MDRD 119 (>89); GLUCOSE 107 mg/dL (74-104); HDL CHOLESTEROL 52 mg/dL; LDL CHOLESTEROL,CALCULATED 46 mg/dL; LDL/HDL RATIO 0.9 (<4.4); POTASSIUM 3.5 mmol/L (3.5-4.5); SODIUM 133 mmol/L (135-145); TRIGLYCERIDES 89 mg/dL (48-352); VLDL CHOLESTEROL 18 mg/dL
[2023-01-30 06:34] LABS: BAND NEUTROPHILS % (MANUAL) 1 %; DIFFERENTIAL COMMENT MANUAL DIFFERENTIAL; EOSINOPHILS # (MANUAL) 0.2 10^3/uL (0-0.7); LYMPHOCYTES # (MANUAL) 1.1 10^3/uL (1.5-3.5); LYMPHOCYTES % (MANUAL) 11 %; MONOCYTES # (MANUAL) 0.9 10^3/uL (0.0-1.0); NEUTROPHILS # (MANUAL) 7.7 10^3/uL (1.5-6.6); PLATELET ESTIMATE, MANUAL NORMAL (130-450,000) (NORMAL); RBC MORPHOLOGY (MULTIPLE) NORMAL APPEARANCE (NORMAL)
[2023-01-30] MEDS ORDERED: SODIUM CHLORIDE 0.9% 1,000 ML IV SCH (08:13)
[2023-01-30] MEDS: MULTIVITAMIN W/MINERALS TABLET PO SCH (08:38)
[2023-01-30] MEDS: ASPIRIN EC 81 MG TABLET PO SCH (08:42)
[2023-01-30] MEDS: CLOPIDOGREL 75 MG TABLET PO SCH (08:42)
[2023-01-30] MEDS: amLODIPine 5 MG TABLET PO SCH (08:43)
[2023-01-30] MEDS: ENOXAPARIN 40 MG/0.4 ML SYRINGE SUBQ SCH (08:43)
[2023-01-30] MEDS: Leflunomide [Arava] 10 MG PO SCH (08:44)
--- NOTE | 2023-01-30 11:12 | PROVIDER PROGRESS NOTE ---
Assessment/Plan - Problem List (1) Syncope Assessment/Plan: PT and OT were working with the patient today, and she was able to stand up with assistance and hold onto a walker. Then while standing, she had syncope: Her legs buckled, her eyes rolled back in her head and she slumped. She was quickly put into the recliner chair which was close by, by PT and OT staff. I was then called in to see her STAT. BP was checked in the recliner chair and was 126 systolic. Several hours before that in a supine position BP was 156 systolic. She had O2 sat of 96% on room air however she was witnessed to be snoring and was lethargic in the recliner. Fingerstick glucose check was 140 She slowly began to awaken more, was following with her eyes, was able to answer what her name was and could joke, but was speaking very softly. She was then transferred back into her bed and no more PT and OT were done today Plan: I suspect she was orthostatic. I will give her a bolus of saline today, since her oral intake has been poor. I will decrease the Amlodipine dose from 5 mg daily to 2.5 mg daily. Also check a STAT head CT, since there is worse obtundation associated with this event which could be an extension of her stroke or bleed She is not yet ready for discharge today. (2) Right thalamic stroke Assessment/Plan: Facial droop & confusion were her presenting complaints. Then these resolved. Then both returned 01/26 afternoon and MRI of the head was positive after CT of head with CT angiogram were negative. The MRI confirmed a right thalamic stroke. She was started on aspirin and Plavix. On telemetry she has not had A-fib and no arrhythmia present. Blood pressure allowed permissive hypertension for 2 days. (The highest BP was 172/69). She was eating <100% of her food and drinking only 300 cc fluid a day, as such she was on iv NS at 75 cc/hr, with the rate decreasing She seemed weaker to the RN on 01/[address] head was repeated 01/28 and showed the R thalamic stroke, no other findings. She has been weaker when working with PT and OT>> answers with a long pause, is slow to follow commands, has left-sided neglect, looks to the right, is less communicative with a weaker voice. Echocardiogram showed normal LVEF and RVEF, no clot, and no shunt by color Doppler, no saline "bubble" study was done. Her fasting lipid panel showed total chol of 116 and LDL of 46 Plan: PT and OT recommend patient go to custodial facility for rehab, the plan is to go to [facility] when medically cleared Cont daily aspirin and Plavix. High dose Atorvastatin qpm can be decreased to 20 mg qpm. I spoke to her daughter Digna by phone today, and updated her. (3) RA Assessment/Plan: Yesterday the patient told me she had pain in the right wrist and both feet. I asked her if she takes Motrin for this and she answered she takes Prednisone for this. Her only home med is Leflunomide. This is not on formulary here and we do not have her home bottle of Leflunomide to administer to her here. Plan: I will order Voltaren cream to the wrists and ankles and feet Cont Tylenol prn pain as well (4) Colostomy Assessment/Plan: Has hx of ostomy s/p bowel surgery Today during her syncopal episode she had liquid stool into the ostomy Plan: Because of the antibiotics, I will check her stool for C. difficile If it is negative we will start Imodium as needed (5) Hx HTN Assessment/Plan: Her home dose of Amlodipine 5 mg was started by the admitting telemedicine doctor. Once her med list was reconciled, the Amlodipine fell off Today I suspect that orthostasis caused the syncope since a supine blood pressure was 156, then with standing she buckled, and after being placed in a recliner, systolic BP was only 126 Plan: I will decrease the Amlodipine to 2.5 mg Check orthostatic vital signs daily in a.m. (6) UTI (urinary tract infection) Impression: No fever, and white cell count was normal. Main manifestation was her altered mental status. She had transitional cells and epithelial cells in U/A. She was on empiric Rocephin for several days. Blood cultures are negative to date. Urine culture ended up growing strep viridans. She got 4 days of antibx which was then stopped since she had no urinary complaints Plaan: Since she is less alert today than at admission, we will assure that she does not have a climbing WBC or fever, before she is discharged - Current Meds Current Meds: Current Medications Generic Name Dose Route Start Last Admin Trade Name Debra PRN Reason Stop Dose Admin Acetaminophen 1,000 mg 01/26/23 10:16 01/28/23 08:58 Acetaminophen 500 Mg Tablet PO 1,000 mg Q6H PRN Administration Mild Pain Or Fever>38c(100.4f) Amlodipine Besylate 5 mg 01/26/23 09:00 01/30/23 08:43 Amlodipine 5 Mg Tablet PO 5 mg DAILY GOYO Administration Aspirin 81 mg 01/27/23 13:00 01/30/23 08:42 Aspirin Ec 81 Mg Tablet PO 81 mg DAILY GOYO Administration Clopidogrel Bisulfate 75 mg 01/28/23 09:00 01/30/23 08:42 Clopidogrel 75 Mg Tablet PO 75 mg DAILY GOYO Administration Enoxaparin Sodium 40 mg 01/26/23 09:00 01/30/23 08:43 Enoxaparin 40 Mg/0.4 Ml Syringe SUBQ 40 mg DAILY GOYO Administration Multivitamins/Minerals 1 tab 01/28/23 17:00 01/30/23 08:38 Multivitamin W/Minerals Tablet PO Not Given DAILYWM [facility] Pantoprazole Sodium 40 mg 01/27/23 07:00 01/30/23 05:36 Pantoprazole 40 Mg Tablet PO 40 mg QDAC GOYO Administration Leflunomide [Arava] 1 each 01/26/23 09:00 01/30/23 08:44 10 Mg PO Not Given DAILY [facility] Sodium Chloride 10 ml 01/26/23 01:00 01/30/23 08:43 Sodium Chloride Flush 0.9% 10 Ml Syringe IVP 10 ml 0100,0900,1700 GOYO Administration - Lab Result Fish Bone Diagrams: 01/30/23 05:34 01/30/23 05:34 - Additional Planning My Orders: My Active Orders 01/30/23 08:13 Sodium Chloride 0.9% [Normal Saline 0.9%] 1,000 ml IV 40 mls/hr 01/30/23 13:00 Diclofenac Sodium 1% Gel [Voltaren Gel] 2 gm TOP QID 01/30/23 21:00 Atorvastatin [Lipitor] 40 mg PO QPM Objective Vital Signs: Vital Signs - 24 hr 01/29/23 01/29/23 01/30/23 16:00 23:45 08:04 Temperature 36.9 C 37.0 C 37.0 C Heart Rate [ 82 89 78 Brachial] Respiratory 18 16 16 Rate Blood Pressure 163/88 H 150/76 H [Left Brachial artery] Blood Pressure 154/70 H [Right Brachial artery] O2 Saturation 100 100 97 Oxygen O2 Source Room air I&O (Last 24 Hrs): Intake and Output Totals x24h 01/28/23 01/29/23 01/30/23 23:59 23:59 23:59 Intake Total 3072.5 1890 1940.00 Output Total 2600 2700 1700 Balance 472.5 -810 240.00 - Results Results: Laboratory Results WBC 9.9 x10^3/uL (4.8-10.8) 01/30/23 05:34 RBC 4.44 10^6/uL (4.20-5.40) 01/30/23 05:34 Hgb 13.1 g/dL (12.0-16.0) 01/30/23 05:34 Hct 39.7 % (37.0-47.0) 01/30/23 05:34 MCV 89.4 fL (81.0-99.0) 01/30/23 05:34 MCH 29.5 pg (27.0-31.0) 01/30/23 05:34 MCHC 33.0 g/dL (32.0-36.0) 01/30/23 05:34 RDW 14.2 % (12.0-15.0) 01/30/23 05:34 Plt Count 194 10^3/uL (130-450) 01/30/23 05:34 MPV 9.6 fL (7.9-10.8) 01/30/23 05:34 Neut # (Auto) Not Reportable 01/30/23 05:34 Lymph # (Auto) Not Reportable 01/30/23 05:34 [place] # (Auto) Not Reportable 01/30/23 05:34 Eos # (Auto) Not Reportable 01/30/23 05:34 Baso # (Auto) Not Reportable 01/30/23 05:34 Absolute Nucleated RBC Not Reportable 01/30/23 05:34 Total Counted 100 01/30/23 05:34 Band Neuts % (Manual) 1 % (0-10) 01/30/23 05:34 Abnorm Lymph % (Manual) 0 % 01/30/23 05:34 Nucleated RBC % Not Reportable 01/30/23 05:34 Neutrophils # (Manual) 7.7 10^3/uL (1.5-6.6) H 01/30/23 05:34 Lymphocytes # (Manual) 1.1 10^3/uL (1.5-3.5) L 01/30/23 05:34 Monocytes # (Manual) 0.9 10^3/uL (0.0-1.0) 01/30/23 05:34 Eosinophils # (Manual) 0.2 10^3/uL (0-0.7) 01/30/23 05:34 Basophils # (Manual) 0.0 10^3/uL (0-0.1) 01/30/23 05:34 Differential Comment MANUAL DIFFERENTIAL 01/30/23 05:34 Platelet Estimate NORMAL (130-450,000) (NORMAL) 01/30/23 05:34 RBC Morph Micro Appear NORMAL APPEARANCE (NORMAL) 01/30/23 05:34 PT 13.4 secs (9.9-12.6) H 01/25/23 12:18 INR 1.2 (0.8-1.2) 01/25/23 12:18 Sodium 133 mmol/L (135-145) L 01/30/23 05:34 Potassium 3.5 mmol/L (3.5-4.5) 01/30/23 05:34 Chloride 102 mmol/L (101-111) 01/30/23 05:34 Carbon Dioxide 25 mmol/L (21-32) 01/30/23 05:34 Anion Gap 6.0 (6-13) 01/30/23 05:34 BUN 8 mg/dL (6-20) 01/30/23 05:34 Creatinine 0.5 mg/dL (0.6-1.3) L 01/30/23 05:34 Estimated GFR (MDRD) 119 (>89) 01/30/23 05:34 Glucose 107 mg/dL (74-104) H 01/30/23 05:34 Lactic Acid 1.6 mmol/L (0.5-2.2) 01/25/23 16:10 Calcium 9.0 mg/dL (8.5-10.3) 01/30/23 05:34 Total Bilirubin 0.8 mg/dL (0.2-1.0) 01/29/23 10:44 AST 21 IU/L (10-42) 01/29/23 10:44 ALT 13 IU/L (10-60) 01/29/23 10:44 Alkaline Phosphatase 76 IU/L (42-121) 01/29/23 10:44 Ammonia 25.1 umol/L (18-72) 01/29/23 10:44 Total Protein 7.0 g/dL (6.4-8.9) 01/29/23 10:44 Albumin 3.7 g/dL (3.2-5.5) 01/29/23 10:44 Globulin 3.3 g/dL (2.1-4.2) 01/29/23 10:44 Albumin/Globulin Ratio 1.1 (1.0-2.2) 01/29/23 10:44 Triglycerides 89 mg/dL (48-352) 01/30/23 05:34 Cholesterol 116 mg/dL (-200) 01/30/23 05:34 LDL Cholesterol, Calc 46 mg/dL (-129) 01/30/23 05:34 VLDL Cholesterol 18 mg/dL 01/30/23 05:34 HDL Cholesterol 52 mg/dL (60-) L 01/30/23 05:34 LDL/HDL Ratio 0.9 (<4.4) 01/30/23 05:34 Cholesterol/HDL Ratio 2.2 (<4.4) 01/30/23 05:34 Lipase 10 U/L (11-82) L 01/25/23 12:18 Urine Color ORANGE 01/25/23 13:17 Urine Clarity CLEAR (CLEAR) 01/25/23 13:17 Urine pH 5.5 PH (5.0-7.5) 01/25/23 13:17 Ur Specific [place] >=1.030 (1.002-1.030) H 01/25/23 13:17 Urine Protein 100 mg/dL (NEGATIVE) H 01/25/23 13:17 Urine Glucose (UA) NEGATIVE mg/dL (NEGATIVE) 01/25/23 13:17 Urine Ketones 15 mg/dL (NEGATIVE) H 01/25/23 13:17 Urine Occult Blood MODERATE (NEGATIVE) H 01/25/23 13:17 Urine Nitrite NEGATIVE (NEGATIVE) 01/25/23 13:17 Urine Bilirubin NEGATIVE (NEGATIVE) 01/25/23 13:17 Urine Urobilinogen 1 (NORMAL) E.U./dL (NORMAL) 01/25/23 13:17 Ur Leukocyte Esterase TRACE (NEGATIVE) H 01/25/23 13:17 Urine RBC 11-25 /HPF (0-5) H 01/25/23 13:17 Urine WBC >25 /HPF (0-5) H 01/25/23 13:17 Urine WBC Clumps PRESENT 01/25/23 13:17 Ur Epithelial Cells FEW Transitional /HPF (<= Few) 01/25/23 13:17 Ur Squamous Epith Cells FEW Squamous (<= Few) 01/25/23 13:17 Urine Bacteria Few /HPF (None Seen) 01/25/23 13:17 Ur Microscopic Review INDICATED 01/25/23 13:17 Urine Culture Comments INDICATED 01/25/23 13:17 - Procedures Procedures: Procedures REPLACEMENT OF RIGHT LENS WITH SYNTH SUB, PERC APPROACH (01/31/17)
[2023-01-30] MEDS ORDERED: amLODIPine 5 MG TABLET PO SCH (11:15)
[2023-01-30] MEDS ORDERED: SODIUM CHLORIDE 0.9% 500 ML IV ONE (11:41)
[2023-01-30] MEDS: DICLOFENAC SODIUM 1% GEL 50 GM TUBE TOP SCH ×3 (14:25→20:22)
--- NOTE | 2023-01-30 14:48 | CT Report ---
PROCEDURE: HEAD WO INDICATIONS: Worsened mental status TECHNIQUE: Noncontrast 4.5 mm thick angled axial sections acquired from the foramen magnum to the vertex. For r adiation dose reduction, the following was used: automated exposure control, adjustment of mA and/or kV according to patient size. COMPARISON: None. FINDINGS: Image quality: Excellent. CSF spaces: Basal cisterns are patent. No extra-axial fluid collections. Ventricles are normal in size and shape. Brain: No midline shift. No intracranial masses or hemorrhage. Maldonado-white matter interface is norm al. Leukoaraiosis, commonly caused by chronic small vessel ischemic disease. Age-related volume loss . Skull and face: Calvarium and visualized facial bones are intact, without suspicious lesions. Sinuses: Visualized sinuses and mastoids are clear. IMPRESSION: No acute intracranial pathology. Reviewed by: Kev Lenz on 01/30/2023 2:47 PM [facility] Approved by: Kev Lenz on 01/30/2023 2:47 PM [facility] Station ID: [id number]
[2023-01-30] MEDS: ATORVASTATIN 40 MG TABLET PO SCH (20:22)
[2023-01-31] MEDS: SODIUM CHLORIDE FLUSH 0.9% 10 ML SYRINGE IVP SCH ×4 (00:27→23:58)
[2023-01-31 06:01] LABS: BASOPHILS # (AUTO) 0.1 10^3/uL (0.0-0.1); BASOPHILS % (AUTO) 0.9 %; EOSINOPHILS # (AUTO) 0.5 10^3/uL (0.0-0.7); EOSINOPHILS % (AUTO) 6.5 %; HCT - HEMATOCRIT 38.1 % (37.0-47.0); HGB - HEMOGLOBIN 12.3 g/dL (12.0-16.0); LYMPHOCYTES # (AUTO) 1.6 10^3/uL (1.5-3.5); LYMPHOCYTES % (AUTO) 21.7 %; MEAN CORPUSCULAR HEMOGLOBIN 29.1 pg (27.0-31.0); MEAN CORPUSCULAR HGB CONC 32.3 g/dL (32.0-36.0); MEAN CORPUSCULAR VOLUME 90.3 fL (81.0-99.0); MEAN PLATELET VOLUME 9.4 fL (7.9-10.8); MONOCYTES # (AUTO) 1.3 10^3/uL (0.0-1.0); MONOCYTES % (AUTO) 16.5 %; NEUTROPHILS # (AUTO) 4.1 10^3/uL (1.5-6.6); NEUTROPHILS % (AUTO) 54.1 %; PLT - PLATELET COUNT 217 10^3/uL (130-450); RED BLOOD COUNT 4.22 10^6/uL (4.20-5.40); RED CELL DISTRIBUTION WIDTH 14.1 % (12.0-15.0); WHITE BLOOD COUNT 7.6 x10^3/uL (4.8-10.8)
[2023-01-31 06:16] LABS: CALCIUM 8.8 mg/dL (8.5-10.3); CREATININE 0.6 mg/dL (0.6-1.3); MAGNESIUM 1.7 mg/dL (1.7-2.3); PHOSPHORUS 2.8 mg/dL (2.5-5.0); POTASSIUM 3.4 mmol/L (3.5-4.5)
[2023-01-31] MEDS: PANTOPRAZOLE 40 MG TABLET PO SCH (06:48)
--- NOTE | 2023-01-31 07:34 | PROVIDER PROGRESS NOTE ---
Assessment/Plan - Problem List (1) Orthostatic hypotension Assessment/Plan: Given yesterday's syncope, I ordered orthostatic VS to be measured This morning, her HR jim from 81 supine to 114 standing, consistent with orthostasis Plan: Not ready for [facility] today I will increase her NS from 40 cc/hr to 60 cc/hr today I will move the daily Amlodipine from a.m. to noon Cont to check daily orthostatic VS (2) Syncope Assessment/Plan: PT and OT were working with the patient 01/30, and she was able to stand up with assistance and hold the walker. Then she had syncope: Her legs buckled, her eyes rolled back in her head and she slumped. She was quickly put into the recl iner chair which was close by, by PT and OT staff. I was then called in to see her STAT. BP was checked in the recliner chair and was 126 systolic. Several hours before that in a supine position BP was 156 systolic. O2 sat 96%. Glu was 140. She slowly began to awaken more. Then yesterday a STAT head CT was done and it showed no new findings I suspected she was orthostatic, and gave her a bolus of saline, and ordered to monitor orthostatic VS. She is orthostatic today (see #1) Plan: As in #1 (3) Cognitive impairment Assessment/Plan: During yesterday's phone call with the daughter, I learned that the patient was having cognnitive decline for a year: her neighbor checked on her daily and had to remind her to eat. The patient was not opening her mail, not paying her bills. Today the pt had cognitive evaluation done by OT. She participated and scored 2/30 which is consistent with dementia. There is better [facility]it[facility] memory than short term memory, since the pt recognized her friends Samaria and Tobias, as they walked into her room to visit today. Today I reached out to her daughter Digna in [place] about these findings Plan: SNF for stroke rehab then LTC would be her best option. The patient cannot return to live at home alone because of her stroke with new motor deficits and her cognitive impairment (4) Right thalamic stroke Assessment/Plan: Facial droop & confusion were her presenting complaints. Then these resolved. Then both returned 01/26 afternoon and MRI of the head was positive after CT of head with CT angiogram were negative. The MRI confirmed a right thalamic stroke. She was started on aspirin and Plavix. On telemetry she has not had A-fib and no arrhythmia present. Blood pressure allowed permissive hypertension for 2 days. (The highest BP was 172/69). A CT head was repeated 01/28 and 01/29 showed the R thalamic stroke, no new findings. Her angio hd and neck showed no stenoses Echocardiogram showed normal LVEF and RVEF, no clot, and no shunt by color Doppler, no saline "bubble" study was done. Her fasting lipid panel showed total chol of 116 and LDL of 46 Plan: PT and OT recommend patient go to intermediate facility for rehab, and she agrees, the plan is to go to [facility] when medically cleared Cont daily aspirin and Plavix. High dose Atorvastatin qpm was decreased to 20 mg qpm. (5) Hx HTN Assessment/Plan: Her home dose of Amlodipine 5 mg was started by the admitting telemedicine doctor. Once her med list was reconciled, the Amlodipine fell off I suspect that orthostasis caused the syncope that she had on 01/30, since a [facility] blood pressure was 156, then with standing she buckled, and after being placed in a recliner, systolic BP was only 126 Plan: She is orthostatic this a.m. so is getting more iv fluids. Cont Amlodipine at noon Check orthostatic vital signs daily in a.m. (6) RA Assessment/Plan: The patient told me she had pain in the right wrist and both feet. I asked her if she takes Motrin for this and she answered she takes Prednisone for this. Her only home med is Leflunomide, which is not on formulary here and we do not have her home bottle of Leflunomide to administer to her here. Plan: Cont Voltaren cream to the wrists, knuckles, ankles and feet Cont Tylenol prn pain as well (7) Colostomy Assessment/Plan: Has hx of ostomy s/p bowel surgery During her syncopal episode she had liquid stool into the ostomy, and a C.diff was ordered but not yet collected Plan: Because of getting antibiotics, if there is more diarrhea, we will check her stool for C. difficile. If it is negative we will start Imodium as needed (8) UTI (urinary tract infection) Impression: TREATED She had no fever or elev WBC, only altered mental status. Her U/A had transitional cells and epithelial cells. She was on empiric Rocephin for several days. Blood cultures are negative to date. Urine culture ended up growing strep viridans. She got 4 days of antibx which was then stopped since s he had no urinary complaints - Current Meds Current Meds: Current Medications Generic Name Dose Route Start Last Admin Trade Name Debra PRN Reason Stop Dose Admin Acetaminophen 1,000 mg 01/26/23 10:16 01/28/23 08:58 Acetaminophen 500 Mg Tablet PO 1,000 mg Q6H PRN Administration Mild Pain Or Fever>38c(100.4f) Aspirin 81 mg 01/27/23 13:00 01/30/23 08:42 Aspirin Ec 81 Mg Tablet PO 81 mg DAILY GOYO Administration Atorvastatin Calcium 40 mg 01/30/23 21:00 01/30/23 20:22 Atorvastatin 40 Mg Tablet PO 40 mg QPM GOYO Administration Clopidogrel Bisulfate 75 mg 01/28/23 09:00 01/30/23 08:42 Clopidogrel 75 Mg Tablet PO 75 mg DAILY GOYO Administration Diclofenac Sodium 2 gm 01/30/23 13:00 01/30/23 20:22 Diclofenac Sodium 1% Gel 50 Gm Tube TOP 2 gm QID GOYO Administration Enoxaparin Sodium 40 mg 01/26/23 09:00 01/30/23 08:43 Enoxaparin 40 Mg/0.4 Ml Syringe SUBQ 40 mg DAILY GOYO Administration Multivitamins/Minerals 1 tab 01/28/23 17:00 01/30/23 08:38 Multivitamin W/Minerals Tablet PO Not Given DAILYWM [facility] Pantoprazole Sodium 40 mg 01/27/23 07:00 01/31/23 06:48 Pantoprazole 40 Mg Tablet PO 40 mg QDAC GOYO Administration Leflunomide [Arava] 1 each 01/26/23 09:00 01/30/23 08:44 10 Mg PO Not Given DAILY [facility] Sodium Chloride 10 ml 01/26/23 01:00 01/31/23 00:27 Sodium Chloride Flush 0.9% 10 Ml Syringe IVP 10 ml 0100,0900,1700 GOYO Administration - Lab Result Fish Bone Diagrams: 01/31/23 05:41 01/31/23 05:41 - Additional Planning My Orders: My Active Orders 01/30/23 13:00 Diclofenac Sodium 1% Gel [Voltaren Gel] 2 gm TOP QID 01/30/23 Dinner DIET [Regular Diet] [DIET] 01/30/23 21:00 Atorvastatin [Lipitor] 40 mg PO QPM 01/31/23 07:32 Sodium Chloride 0.9% [Normal Saline 0.9%] 1,000 ml IV 60 mls/hr 01/31/23 08:00 Orthostatic [Vital Signs - Orthostatic] [RC] DAILY 01/31/23 12:00 amLODIPine [Norvasc] 2.5 mg PO 1200 Subjective - Subjective Patient Reports: Resting Comfortably Nursing Reports: Other (Had to be fed) Objective Vital Signs: Vital Signs - 24 hr 01/30/23 01/30/23 01/31/23 08:04 15:52 00:29 Temperature 37.0 C 37.0 C 36.8 C Heart Rate [ 78 83 97 Brachial] Respiratory 16 16 16 Rate Blood Pressure 150/76 H 144/67 H 148/97 H [Left Brachial artery] O2 Saturation 97 99 97 Oxygen O2 Source Room air I&O (Last 24 Hrs): Intake and Output Totals x24h 01/29/23 01/30/23 01/31/23 23:59 23:59 23:59 Intake Total 1890 3190.75 Output Total 2700 1900 1800 Balance -810 1290.75 -1800 General: Alert, No acute distress HEENT: Mucous membr. moist/pink Neck: Supple, No JVD Neuro: Alert, Disoriented (thinks she is in [place], unaware of date and time), Other (L arm 4/5, L leg 4/5 strength) Cardiovascular: Regular rate, No murmurs Respiratory: No respiratory distress, Breath sounds nml Abdomen: Normal bowel sounds, Soft, No tenderness Extremities: No clubbing, Other (Deformed knuckle, wrists do not bend from past surg) - Results Results: Laboratory Results WBC 7.6 x10^3/uL (4.8-10.8) 01/31/23 05:41 RBC 4.22 10^6/uL (4.20-5.40) 01/31/23 05:41 Hgb 12.3 g/dL (12.0-16.0) 01/31/23 05:41 Hct 38.1 % (37.0-47.0) 01/31/23 05:41 MCV 90.3 fL (81.0-99.0) 01/31/23 05:41 MCH 29.1 pg (27.0-31.0) 01/31/23 05:41 MCHC 32.3 g/dL (32.0-36.0) 01/31/23 05:41 RDW 14.1 % (12.0-15.0) 01/31/23 05:41 Plt Count 217 10^3/uL (130-450) 01/31/23 05:41 MPV 9.4 fL (7.9-10.8) 01/31/23 05:41 Neut # (Auto) 4.1 10^3/uL (1.5-6.6) 01/31/23 05:41 Lymph # (Auto) 1.6 10^3/uL (1.5-3.5) 01/31/23 05:41 [place] # (Auto) 1.3 10^3/uL (0.0-1.0) H 01/31/23 05:41 Eos # (Auto) 0.5 10^3/uL (0.0-0.7) 01/31/23 05:41 Baso # (Auto) 0.1 10^3/uL (0.0-0.1) 01/31/23 05:41 Absolute Nucleated RBC 0.00 x10^3/uL 01/31/23 05:41 Total Counted 100 01/30/23 05:34 Band Neuts % (Manual) 1 % (0-10) 01/30/23 05:34 Abnorm Lymph % (Manual) 0 % 01/30/23 05:34 Nucleated RBC % 0.0 /100WBC 01/31/23 05:41 Neutrophils # (Manual) 7.7 10^3/uL (1.5-6.6) H 01/30/23 05:34 Lymphocytes # (Manual) 1.1 10^3/uL (1.5-3.5) L 01/30/23 05:34 Monocytes # (Manual) 0.9 10^3/uL (0.0-1.0) 01/30/23 05:34 Eosinophils # (Manual) 0.2 10^3/uL (0-0.7) 01/30/23 05:34 Basophils # (Manual) 0.0 10^3/uL (0-0.1) 01/30/23 05:34 Differential Comment MANUAL DIFFERENTIAL 01/30/23 05:34 Platelet Estimate NORMAL (130-450,000) (NORMAL) 01/30/23 05:34 RBC Morph Micro Appear NORMAL APPEARANCE (NORMAL) 01/30/23 05:34 PT 13.4 secs (9.9-12.6) H 01/25/23 12:18 INR 1.2 (0.8-1.2) 01/25/23 12:18 Sodium 137 mmol/L (135-145) 01/31/23 05:41 Potassium 3.4 mmol/L (3.5-4.5) L 01/31/23 05:41 Chloride 107 mmol/L (101-111) 01/31/23 05:41 Carbon Dioxide 25 mmol/L (21-32) 01/31/23 05:41 Anion Gap 5.0 (6-13) L 01/31/23 05:41 BUN 12 mg/dL (6-20) 01/31/23 05:41 Creatinine 0.6 mg/dL (0.6-1.3) 01/31/23 05:41 Estimated GFR (MDRD) 96 (>89) 01/31/23 05:41 Glucose 96 mg/dL (74-104) 01/31/23 05:41 POC Whole Bld Glucose 140 mg/dL (70 - 100) H 01/30/23 11:10 Lactic Acid 1.6 mmol/L (0.5-2.2) 01/25/23 16:10 Calcium 8.8 mg/dL (8.5-10.3) 01/31/23 05:41 Phosphorus 2.8 mg/dL (2.5-5.0) 01/31/23 05:41 Magnesium 1.7 mg/dL (1.7-2.3) 01/31/23 05:41 Total Bilirubin 0.8 mg/dL (0.2-1.0) 01/29/23 10:44 AST 21 IU/L (10-42) 01/29/23 10:44 ALT 13 IU/L (10-60) 01/29/23 10:44 Alkaline Phosphatase 76 IU/L (42-121) 01/29/23 10:44 Ammonia 25.1 umol/L (18-72) 01/29/23 10:44 Total Protein 7.0 g/dL (6.4-8.9) 01/29/23 10:44 Albumin 3.7 g/dL (3.2-5.5) 01/29/23 10:44 Globulin 3.3 g/dL (2.1-4.2) 01/29/23 10:44 Albumin/Globulin Ratio 1.1 (1.0-2.2) 01/29/23 10:44 Triglycerides 89 mg/dL (48-352) 01/30/23 05:34 Cholesterol 116 mg/dL (-200) 01/30/23 05:34 LDL Cholesterol, Calc 46 mg/dL (-129) 01/30/23 05:34 VLDL Cholesterol 18 mg/dL 01/30/23 05:34 HDL Cholesterol 52 mg/dL (60-) L 01/30/23 05:34 LDL/HDL Ratio 0.9 (<4.4) 01/30/23 05:34 Cholesterol/HDL Ratio 2.2 (<4.4) 01/30/23 05:34 Lipase 10 U/L (11-82) L 01/25/23 12:18 Urine Color ORANGE 01/25/23 13:17 Urine Clarity CLEAR (CLEAR) 01/25/23 13:17 Urine pH 5.5 PH (5.0-7.5) 01/25/23 13:17 Ur Specific [place] >=1.030 (1.002-1.030) H 01/25/23 13:17 Urine Protein 100 mg/dL (NEGATIVE) H 01/25/23 13:17 Urine Glucose (UA) NEGATIVE mg/dL (NEGATIVE) 01/25/23 13:17 Urine Ketones 15 mg/dL (NEGATIVE) H 01/25/23 13:17 Urine Occult Blood MODERATE (NEGATIVE) H 01/25/23 13:17 Urine Nitrite NEGATIVE (NEGATIVE) 01/25/23 13:17 Urine Bilirubin NEGATIVE (NEGATIVE) 01/25/23 13:17 Urine Urobilinogen 1 (NORMAL) E.U./dL (NORMAL) 01/25/23 13:17 Ur Leukocyte Esterase TRACE (NEGATIVE) H 01/25/23 13:17 Urine RBC 11-25 /HPF (0-5) H 01/25/23 13:17 Urine WBC >25 /HPF (0-5) H 01/25/23 13:17 Urine WBC Clumps PRESENT 01/25/23 13:17 Ur Epithelial Cells FEW Transitional /HPF (<= Few) 01/25/23 13:17 Ur Squamous Epith Cells FEW Squamous (<= Few) 01/25/23 13:17 Urine Bacteria Few /HPF (None Seen) 01/25/23 13:17 Ur Microscopic Review INDICATED 01/25/23 13:17 Urine Culture Comments INDICATED 01/25/23 13:17 - Procedures Procedures: Procedures REPLACEMENT OF RIGHT LENS WITH SYNTH SUB, PERC APPROACH (01/31/17)
[2023-01-31] MEDS: ASPIRIN EC 81 MG TABLET PO SCH (08:11)
[2023-01-31] MEDS: MULTIVITAMIN W/MINERALS TABLET PO SCH (08:11)
[2023-01-31] MEDS: CLOPIDOGREL 75 MG TABLET PO SCH (08:11)
[2023-01-31] MEDS: ENOXAPARIN 40 MG/0.4 ML SYRINGE SUBQ SCH (08:12)
[2023-01-31] MEDS: DICLOFENAC SODIUM 1% GEL 50 GM TUBE TOP SCH ×4 (08:12→21:05)
[2023-01-31] MEDS: Leflunomide [Arava] 10 MG PO SCH (08:13)
[2023-01-31] MEDS ORDERED: amLODIPine 5 MG TABLET PO SCH (09:00)
[2023-01-31] MEDS: amLODIPine 5 MG TABLET PO SCH (12:45)
[2023-01-31] MEDS: SODIUM CHLORIDE 0.9% 1,000 ML IV SCH (16:19)
[2023-01-31] MEDS: ATORVASTATIN 40 MG TABLET PO SCH (21:05)
[2023-02-01] MEDS: PANTOPRAZOLE 40 MG TABLET PO SCH (06:41)
--- NOTE | 2023-02-01 07:32 | PROVIDER PROGRESS NOTE ---
Assessment/Plan - Problem List (1) C. difficile diarrhea Assessment/Plan: During her syncopal episode she had liquid stool into her colostomy bag. Because of getting antibiotics, a C.diff was ordered. Stool sample was sent last night. Result is (+) for C. diff Plan: Order isolation precautions Start Vanco 125 mg po QID She is not yet ready for [facility] today I updated the daughter Digna by phone today on all the above (2) Orthostatic hypotension Assessment/Plan: Given the syncopal episode, I ordered orthostatic VS to be measured, and yest morning, her HR jim from 81 supine to 114 standing, consistent with orthostasis. Today Her syst BP drops from 150 supine to 130 just sitting Plan: Cont NS incr from 40 cc/hr to 60 cc/hr Cont daily Amlodipine, moved from a.m. to noon Cont to check daily orthostatic VS (3) Syncope Assessment/Plan: PT and OT were working with the patient 01/30, and she was able to stand up with assistance and hold the walker. Then she had syncope: Her legs buckled, her eyes rolled back in her head and she slumped. She was quickly put into the recliner chair which was close by, by PT and OT staff. I was then called in to see her STAT. BP was checked in the recliner chair and was 126 systolic. Several hours before that in a supine position BP was 156 systolic. O2 sat 96%. Glu was 140. She slow ly began to awaken more. Then a STAT head CT was done and it showed no new findings I suspected she was orthostatic, and gave her a bolus of saline, and ordered to monitor orthostatic VS. She is orthostatic today (see #1) Plan: As in #2 (4) Cognitive impairment Assessment/Plan: During yesterday's phone call with the daughter, I learned that the patient was having cognnitive decline for a year: her neighbor checked on her daily and had to remind her to eat. The patient was not opening her mail, not paying her bills. Today the pt had cognitive evaluation done by OT. She participated and scored 2/30 which is consistent with dementia. There is better snf memory than short term memory, since the pt recognized her friends Samaria and Tobias, as they walked into her room to visit today. Today I reached out to her daughter Digna in [place] about these findings Plan: SNF for stroke rehab then LTC would be her best option. The patient cannot return to live at home alone because of her stroke with new motor deficits and her cognitive impairment. I updated the daughter Digna by phone today on all the above. She will start the process for obtaining guardianship (5) Right thalamic stroke Assessment/Plan: Facial droop & confusion were her presenting complaints. Then these resolved. Then both returned 01/26 afternoon and MRI of the head was positive after CT of head with CT angiogram were negative. The MRI confirmed a right thalamic stroke. She was started on aspirin and Plavix. On telemetry she has not had A-fib and no arrhythmia present. Blood pressure allowed permissive hypertension for 2 days. (The highest BP was 172/69). A CT head was repeated 01/28 and 01/29 showed the R thalamic stroke, no new findings. Her angio head and neck showed no stenoses Echocardiogram showed normal LVEF and RVEF, no clot, and no shunt by color Doppler, no saline "bubble" study was done. Her fasting lipid panel showed total chol of 116 and LDL of 46 Plan: PT and OT recommend [facility] to [facility] for [facility], and she agrees, the plan is to go to [facility] when medically cleared Cont daily aspirin and Plavix. High dose Atorvastatin qpm was decreased to 20 mg qpm. (6) Hx HTN Assessment/Plan: Her home dose of Amlodipine 5 mg was started by the admitting telemedicine doctor. Once her med list was reconciled, the Amlodipine fell off I suspect that orthostasis caused the syncope that she had on 01/30, since a supine blood pressure was 156, then with standing she buckled, and after being placed in a recliner, systolic BP was only 126 Plan: She is still orthostatic this a.m. so is getting more iv fluids. Cont Amlodipine at noon Check orthostatic vital signs daily in a.m. (7) RA Assessment/Plan: The patient told me she had pain in the right wrist and both feet. I asked her if she takes Motrin for this and she answered she takes Prednisone for this. Her only home med is Leflunomide, which is not on formulary here and we do not have her home bottle of Leflunomide to administer to her here. Plan: Cont Voltaren cream to the wrists, knuckles, ankles and feet Cont Tylenol prn pain as well (8) Colostomy Assessment/Plan: Has hx of ostomy s/p bowel surgery During her syncopal episode she had liquid stool into the ostomy, and a C.diff was ordered. I was collected last night Plan: As in #1 (9) UTI (urinary tract infection) Impression: TREATED She had no fever or elev WBC, only altered mental status. Her U/A had transitional cells and epithelial cells. She was on empiric Rocephin for several days. Blood cultures are negative to date. Urine culture ended up growing strep viridans. She got 4 days of antibx which was then stopped since she had no urinary complaints - Current Meds Current Meds: Current Medications Generic Name Dose Route Start Last Admin Trade Name Freq PRN Reason Stop Dose Admin Acetaminophen 1,000 mg 01/26/23 10:16 01/28/23 08:58 Acetaminophen 500 Mg Tablet PO 1,000 mg Q6H PRN Administration Mild Pain Or Fever>38c(100.4f) Amlodipine Besylate 2.5 mg 01/31/23 12:00 01/31/23 12:45 Amlodipine 5 Mg Tablet PO 2.5 mg 1200 GOYO Administration Aspirin 81 mg 01/27/23 13:00 01/31/23 08:11 Aspirin Ec 81 Mg Tablet PO 81 mg DAILY GOYO Administration Atorvastatin Calcium 40 mg 01/30/23 21:00 01/31/23 21:05 Atorvastatin 40 Mg Tablet PO 40 mg QPM GOYO Administration Clopidogrel Bisulfate 75 mg 01/28/23 09:00 01/31/23 08:11 Clopidogrel 75 Mg Tablet PO 75 mg DAILY GOYO Administration Diclofenac Sodium 2 gm 01/30/23 13:00 01/31/23 21:05 Diclofenac Sodium 1% Gel 50 Gm Tube TOP 2 gm QID GOYO Administration Enoxaparin Sodium 40 mg 01/26/23 09:00 01/31/23 08:12 Enoxaparin 40 Mg/0.4 Ml Syringe SUBQ 40 mg DAILY GOYO Administration Sodium Chloride 1,000 mls @ 60 mls/hr 01/31/23 07:32 01/31/23 16:19 Normal Saline 0.9% IV 60 mls/hr .[id number] GOYO Administration Multivitamins/Minerals 1 tab 01/28/23 17:00 01/31/23 08:11 Multivitamin W/Minerals Tablet PO 1 tab DAILYWM GOYO Administration Pantoprazole Sodium 40 mg 01/27/23 07:00 02/01/23 06:41 Pantoprazole 40 Mg Tablet PO 40 mg QDAC GOYO Administration Leflunomide [Arava] 1 each 01/26/23 09:00 01/31/23 08:13 10 Mg PO Not Given DAILY GOYO Sodium Chloride 10 ml 01/26/23 01:00 01/31/23 23:58 Sodium Chloride Flush 0.9% 10 Ml Syringe IVP 10 ml 0100,0900,1700 GOYO Administration - Lab Result Fish Bone Diagrams: 01/31/23 05:41 01/31/23 05:41 - Additional Planning My Orders: My Active Orders 01/31/23 07:32 Sodium Chloride 0.9% [Normal Saline 0.9%] 1,000 ml IV 60 mls/hr 01/31/23 08:00 Orthostatic [Vital Signs - Orthostatic] [RC] DAILY 01/31/23 Lunch Dysphagia - Soft and Bite Sized [DIET] 01/31/23 12:00 amLODIPine [Norvasc] 2.5 mg PO 1200 Subjective - Subjective Patient Reports: Resting Comfortably, No Complaints Objective Vital Signs: Vital Signs - 24 hr 01/31/23 01/31/23 02/01/23 07:31 15:37 00:25 Temperature 37.1 C 37.5 C 37.1 C Heart Rate [ 72 78 76 Brachial] Respiratory 18 18 18 Rate Blood Pressure 162/66 H 149/79 H 120/76 [Left Brachial artery] O2 Saturation 98 99 96 Oxygen O2 Source Room air I&O (Last 24 Hrs): Intake and Output Totals x24h 01/30/23 01/31/23 02/01/23 23:59 23:59 23:59 Intake Total 3190.75 2630.000 Output Total 1900 2750 750 Balance 1290.75 -120.000 -750 General: Alert, No acute distress HEENT: Mucous membr. moist/pink, Other (wearing glasses) Neck: Supple Neuro: Alert, Other (Poor memory, slow to answer, stares ahaead, L side neglect and mild L sided weakness arm & leg) Cardiovascular: Regular rate Respiratory: No respiratory distress Abdomen: Soft, Other (colostomy in place) Extremities: No clubbing, No edema, Other (Rheumatoid knuckle changes, wrists stiff) - Results Results: Laboratory Results WBC 7.6 x10^3/uL (4.8-10.8) 01/31/23 05:41 RBC 4.22 10^6/uL (4.20-5.40) 01/31/23 05:41 Hgb 12.3 g/dL (12.0-16.0) 01/31/23 05:41 Hct 38.1 % (37.0-47.0) 01/31/23 05:41 MCV 90.3 fL (81.0-99.0) 01/31/23 05:41 MCH 29.1 pg (27.0-31.0) 01/31/23 05:41 MCHC 32.3 g/dL (32.0-36.0) 01/31/23 05:41 RDW 14.1 % (12.0-15.0) 01/31/23 05:41 Plt Count 217 10^3/uL (130-450) 01/31/23 05:41 MPV 9.4 fL (7.9-10.8) 01/31/23 05:41 Neut # (Auto) 4.1 10^3/uL (1.5-6.6) 01/31/23 05:41 Lymph # (Auto) 1.6 10^3/uL (1.5-3.5) 01/31/23 05:41 [place] # (Auto) 1.3 10^3/uL (0.0-1.0) H 01/31/23 05:41 Eos # (Auto) 0.5 10^3/uL (0.0-0.7) 01/31/23 05:41 Baso # (Auto) 0.1 10^3/uL (0.0-0.1) 01/31/23 05:41 Absolute Nucleated RBC 0.00 x10^3/uL 01/31/23 05:41 Total Counted 100 01/30/23 05:34 Band Neuts % (Manual) 1 % (0-10) 01/30/23 05:34 Abnorm Lymph % (Manual) 0 % 01/30/23 05:34 Nucleated RBC % 0.0 /100WBC 01/31/23 05:41 Neutrophils # (Manual) 7.7 10^3/uL (1.5-6.6) H 01/30/23 05:34 Lymphocytes # (Manual) 1.1 10^3/uL (1.5-3.5) L 01/30/23 05:34 Monocytes # (Manual) 0.9 10^3/uL (0.0-1.0) 01/30/23 05:34 Eosinophils # (Manual) 0.2 10^3/uL (0-0.7) 01/30/23 05:34 Basophils # (Manual) 0.0 10^3/uL (0-0.1) 01/30/23 05:34 Differential Comment MANUAL DIFFERENTIAL 01/30/23 05:34 Platelet Estimate NORMAL (130-450,000) (NORMAL) 01/30/23 05:34 RBC Morph Micro Appear NORMAL APPEARANCE (NORMAL) 01/30/23 05:34 PT 13.4 secs (9.9-12.6) H 01/25/23 12:18 INR 1.2 (0.8-1.2) 01/25/23 12:18 Sodium 137 mmol/L (135-145) 01/31/23 05:41 Potassium 3.4 mmol/L (3.5-4.5) L 01/31/23 05:41 Chloride 107 mmol/L (101-111) 01/31/23 05:41 Carbon Dioxide 25 mmol/L (21-32) 01/31/23 05:41 Anion Gap 5.0 (6-13) L 01/31/23 05:41 BUN 12 mg/dL (6-20) 01/31/23 05:41 Creatinine 0.6 mg/dL (0.6-1.3) 01/31/23 05:41 Estimated GFR (MDRD) 96 (>89) 01/31/23 05:41 Glucose 96 mg/dL (74-104) 01/31/23 05:41 POC Whole Bld Glucose 140 mg/dL (70 - 100) H 01/30/23 11:10 Lactic Acid 1.6 mmol/L (0.5-2.2) 01/25/23 16:10 Calcium 8.8 mg/dL (8.5-10.3) 01/31/23 05:41 Phosphorus 2.8 mg/dL (2.5-5.0) 01/31/23 05:41 Magnesium 1.7 mg/dL (1.7-2.3) 01/31/23 05:41 Total Bilirubin 0.8 mg/dL (0.2-1.0) 01/29/23 10:44 AST 21 IU/L (10-42) 01/29/23 10:44 ALT 13 IU/L (10-60) 01/29/23 10:44 Alkaline Phosphatase 76 IU/L (42-121) 01/29/23 10:44 Ammonia 25.1 umol/L (18-72) 01/29/23 10:44 Total Protein 7.0 g/dL (6.4-8.9) 01/29/23 10:44 Albumin 3.7 g/dL (3.2-5.5) 01/29/23 10:44 Globulin 3.3 g/dL (2.1-4.2) 01/29/23 10:44 Albumin/Globulin Ratio 1.1 (1.0-2.2) 01/29/23 10:44 Triglycerides 89 mg/dL (48-352) 01/30/23 05:34 Cholesterol 116 mg/dL (-200) 01/30/23 05:34 LDL Cholesterol, Calc 46 mg/dL (-129) 01/30/23 05:34 VLDL Cholesterol 18 mg/dL 01/30/23 05:34 HDL Cholesterol 52 mg/dL (60-) L 01/30/23 05:34 LDL/HDL Ratio 0.9 (<4.4) 01/30/23 05:34 Cholesterol/HDL Ratio 2.2 (<4.4) 01/30/23 05:34 Lipase 10 U/L (11-82) L 01/25/23 12:18 Urine Color ORANGE 01/25/23 13:17 Urine Clarity CLEAR (CLEAR) 01/25/23 13:17 Urine pH 5.5 PH (5.0-7.5) 01/25/23 13:17 Ur Specific [place] >=1.030 (1.002-1.030) H 01/25/23 13:17 Urine Protein 100 mg/dL (NEGATIVE) H 01/25/23 13:17 Urine Glucose (UA) NEGATIVE mg/dL (NEGATIVE) 01/25/23 13:17 Urine Ketones 15 mg/dL (NEGATIVE) H 01/25/23 13:17 Urine Occult Blood MODERATE (NEGATIVE) H 01/25/23 13:17 Urine Nitrite NEGATIVE (NEGATIVE) 01/25/23 13:17 Urine Bilirubin NEGATIVE (NEGATIVE) 01/25/23 13:17 Urine Urobilinogen 1 (NORMAL) E.U./dL (NORMAL) 01/25/23 13:17 Ur Leukocyte Esterase TRACE (NEGATIVE) H 01/25/23 13:17 Urine RBC 11-25 /HPF (0-5) H 01/25/23 13:17 Urine WBC >25 /HPF (0-5) H 01/25/23 13:17 Urine WBC Clumps PRESENT 01/25/23 13:17 Ur Epithelial Cells FEW Transitional /HPF (<= Few) 01/25/23 13:17 Ur Squamous Epith Cells FEW Squamous (<= Few) 01/25/23 13:17 Urine Bacteria Few /HPF (None Seen) 01/25/23 13:17 Ur Microscopic Review INDICATED 01/25/23 13:17 Urine Culture Comments INDICATED 01/25/23 13:17 Stl C. diff Tox B Gene POSITIVE (NEGATIVE) A* 02/01/23 00:15 - Procedures Procedures: Procedures REPLACEMENT OF RIGHT LENS WITH SYNTH SUB, PERC APPROACH (01/31/17)
[2023-02-01] MEDS: PSYLLIUM PACKET PO SCH (08:39)
[2023-02-01] MEDS: SODIUM CHLORIDE 0.9% 1,000 ML IV SCH ×2 (08:40→18:12)
[2023-02-01] MEDS: DICLOFENAC SODIUM 1% GEL 50 GM TUBE TOP SCH ×4 (08:41→20:35)
[2023-02-01] MEDS: CLOPIDOGREL 75 MG TABLET PO SCH (08:43)
[2023-02-01] MEDS: VANCOMYCIN 125 MG CAPSULE PO SCH ×5 (08:43→20:36)
[2023-02-01] MEDS: ENOXAPARIN 40 MG/0.4 ML SYRINGE SUBQ SCH (08:43)
[2023-02-01] MEDS: MULTIVITAMIN W/MINERALS TABLET PO SCH (08:43)
[2023-02-01] MEDS: ASPIRIN EC 81 MG TABLET PO SCH (08:43)
[2023-02-01] MEDS: SACCHAROMYCES BOULARDII 250 MG CAPSULE PO SCH ×2 (08:44→18:14)
[2023-02-01] MEDS: Leflunomide [Arava] 10 MG PO SCH (11:52)
[2023-02-01] MEDS: SODIUM CHLORIDE FLUSH 0.9% 10 ML SYRINGE IVP SCH ×2 (11:53→18:14)
[2023-02-01] MEDS: amLODIPine 5 MG TABLET PO SCH (12:06)
[2023-02-01] MEDS: ATORVASTATIN 40 MG TABLET PO SCH (18:13)
[2023-02-02] MEDS: SODIUM CHLORIDE 0.9% 1,000 ML IV SCH ×2 (01:27→18:04)
[2023-02-02] MEDS: SODIUM CHLORIDE FLUSH 0.9% 10 ML SYRINGE IVP SCH ×3 (01:30→17:10)
[2023-02-02] MEDS: PANTOPRAZOLE 40 MG TABLET PO SCH (06:01)
[2023-02-02] MEDS: PSYLLIUM PACKET PO SCH (09:12)
[2023-02-02] MEDS: CLOPIDOGREL 75 MG TABLET PO SCH (09:12)
[2023-02-02] MEDS: ENOXAPARIN 40 MG/0.4 ML SYRINGE SUBQ SCH (09:12)
[2023-02-02] MEDS: ASPIRIN EC 81 MG TABLET PO SCH (09:13)
[2023-02-02] MEDS: DICLOFENAC SODIUM 1% GEL 50 GM TUBE TOP SCH ×4 (09:13→21:08)
[2023-02-02] MEDS: VANCOMYCIN 125 MG CAPSULE PO SCH ×4 (09:13→21:08)
[2023-02-02] MEDS: SACCHAROMYCES BOULARDII 250 MG CAPSULE PO SCH ×2 (09:13→17:09)
[2023-02-02] MEDS: MULTIVITAMIN W/MINERALS TABLET PO SCH (09:13)
[2023-02-02] MEDS: Leflunomide [Arava] 10 MG PO SCH (09:14)
[2023-02-02 09:21] LABS: CALCIUM 8.9 mg/dL (8.5-10.3); CREATININE 0.5 mg/dL (0.6-1.3); MAGNESIUM 1.6 mg/dL (1.7-2.3); POTASSIUM 3.4 mmol/L (3.5-4.5)
[2023-02-02] MEDS: amLODIPine 5 MG TABLET PO SCH (12:15)
--- NOTE | 2023-02-02 12:20 | PROVIDER PROGRESS NOTE ---
Assessment/Plan - Problem List (1) C. difficile diarrhea Assessment/Plan: During her syncopal episode she had liquid stool into her colostomy bag. Because of getting antibiotics, a C.diff was ordered. Stool sample result is (+) for C. diff Today the stool is still liquidy, but volume is less, going into her colostomy bag. Plan: Cont isolation precautions Cont Vanco 125 mg po QID (2) Right thalamic stroke Assessment/Plan: Facial droop & confusion were her presenting complaints. Then these resolved. Then both returned 01/26 afternoon and MRI of the head was positive after CT of head with CT angiogram were negative. The MRI confirmed a right thalamic stroke. She was started on aspirin and Plavix. On telemetry she has not had A-fib and no arrhythmia present. Blood pressure allowed permissive hypertension for 2 days. (The highest BP was 172/69). A CT head was repeated 01/28 and 01/29 showed the R thalamic stroke, no new findings. Her angio head and neck showed no stenoses Echocardiogram showed normal LVEF and RVEF, no clot, and no shunt by color Dop pler, no saline "bubble" study was done. Her fasting lipid panel showed total chol of 116 and LDL of 46 Plan: PT and OT recommend patient go to group home facility for rehab, and she agrees, the plan is to go to [facility] when medically cleared. However, she needs a [facility] plan after rehab at SNF, since she cannot return to living at home alone Cont daily statin, aspirin and Plavix. Plavix will be for 3 weeks. (3) Cognitive impairment Assessment/Plan: During yesterday's phone call with the daughter, I learned that the patient was having cognnitive decline for a year: her neighbor checked on her daily and had to remind her to eat. The patient was not opening her mail, not paying her bills. On 01/31 the pt had cognitive evaluation done by OT. She participated and scored 2/30 which is consistent with dementia. There is better correction memory than short term memory, since the pt recognized her friends Samaria and Tobias, as they walked into her room to visit that day. Plan: SNF for stroke rehab then LTC would be her best option. The patient cannot return to live at home alone because of her stroke with new motor deficits and her cognitive impairment. I updated the daughter Digna by phone yesterday 02/01 on all the above. She plans to come here from [place] and will start the process for obtaining guardianship. I updated SW to contact her. (4) HTN Assessment/Plan: Her home dose of Amlodipine 5 mg was started by the admitting telemedicine doctor. Once her med list was reconciled, the Amlodipine fell off, but she kept getting the adm order. I suspect that orthostasis caused the syncope that she had on 01/30, so she has had several days of iv NS Plan: Cont Amlodipine She is no longer orthostatic, so will stop iv hydration and stop daily orthostatic VS checks (5) RA Assessment/Plan: The patient told me she had pain in the right wrist and both feet. I asked her if she takes Motrin for this and she answered she takes Prednisone for this. Her only home med is Leflunomide, which is not on formulary here and we do not have her home bottle of Leflunomide to administer to her here. Plan: Cont Voltaren cream to the wrists, knuckles, ankles and feet Cont Tylenol prn pain as well (6) Colostomy Assessment/Plan: Has hx of ostomy s/p bowel surgery During her syncopal episode, she had liquid stool into the ostomy, and a C.diff was ordered and came back (+) Plan: As in #1 (7) UTI (urinary tract infection) Impression: TREATED She had no fever or elev WBC, only altered mental status. Her U/A had transitional cells and epithelial cells. She was on empiric Rocephin for several days. Blood cultures were negative to date. Urine culture ended up growing strep viridans. She got 4 days of antibx which was then stopped since she had no urinary complaints (8) Orthostatic hypotension Assessment/Plan: RESOLVED Given the syncopal episode, I ordered orthostatic VS which were abn. Her DCh was postponed. She has had several days of iv fluids She is no longer orthostatic today Plan: I will stop iv fluids Cont daily Amlodipine Cancel daily orthostatic VS checks (9) Syncope Assessment/Plan: NONE FURTHER PT and OT were working with the patient 01/30, and she was able to stand up with assistance and hold the walker. Then she had syncope: Her legs buckled, her eyes rolled back in her head and she slumped. She was quickly put into the recliner chair. Her head CT was repeated and had no new findings. She was orthostatic and that has been treated - Current Meds Current Meds: Current Medications Generic Name Dose Route Start Last Admin Trade Name Julio Cesarq PRN Reason Stop Dose Admin Acetaminophen 1,000 mg 01/26/23 10:16 01/28/23 08:58 Acetaminophen 500 Mg Tablet PO 1,000 mg Q6H PRN Administration Mild Pain Or Fever>38c(100.4f) Amlodipine Besylate 2.5 mg 02/02/23 12:00 02/02/23 12:15 Amlodipine 5 Mg Tablet PO 2.5 mg 1200 GOYO Administration Aspirin 81 mg 01/27/23 13:00 02/02/23 09:13 Aspirin Ec 81 Mg Tablet PO 81 mg DAILY GOYO Administration Atorvastatin Calcium 40 mg 01/30/23 21:00 02/01/23 18:13 Atorvastatin 40 Mg Tablet PO 40 mg QPM GOYO Administration Clopidogrel Bisulfate 75 mg 01/28/23 09:00 02/02/23 09:12 Clopidogrel 75 Mg Tablet PO 75 mg DAILY GOYO Administration Diclofenac Sodium 2 gm 01/30/23 13:00 02/02/23 12:16 Diclofenac Sodium 1% Gel 50 Gm Tube TOP Not Given QID GOYO Enoxaparin Sodium 40 mg 01/26/23 09:00 02/02/23 09:12 Enoxaparin 40 Mg/0.4 Ml Syringe SUBQ 40 mg DAILY GOYO Administration Sodium Chloride 1,000 mls @ 60 mls/hr 01/31/23 07:32 02/02/23 01:27 Normal Saline 0.9% IV 60 mls/hr .[id number] GOYO Administration Multivitamins/Minerals 1 tab 01/28/23 17:00 02/02/23 09:13 Multivitamin W/Minerals Tablet PO 1 tab DAILYWM GOYO Administration Pantoprazole Sodium 40 mg 01/27/23 07:00 02/02/23 06:01 Pantoprazole 40 Mg Tablet PO 40 mg QDAC GOYO Administration Leflunomide [Arava] 1 each 01/26/23 09:00 02/02/23 09:14 10 Mg PO Not Given DAILY GOYO Psyllium Hydrophilic Mucilloid 1 packet 02/01/23 09:00 02/02/23 09:12 Psyllium Packet PO 1 packet DAILY GOYO Administration Saccharomyces Boulardii 500 mg 02/01/23 08:00 02/02/23 09:13 Saccharomyces Boulardii 250 Mg Capsule PO 500 mg BIDWM GOYO Administration Sodium Chloride 10 ml 01/26/23 01:00 02/02/23 09:14 Sodium Chloride Flush 0.9% 10 Ml Syringe IVP Not Given 0100,0900,1700 GOYO Vancomycin HCl 125 mg 02/01/23 05:00 02/02/23 12:14 Vancomycin 125 Mg Capsule PO 125 mg QID GOYO Administration - Lab Result Fish Bone Diagrams: 01/31/23 05:41 02/02/23 09:00 - Additional Planning My Orders: My Active Orders 02/02/23 12:00 amLODIPine [Norvasc] 2.5 mg PO 1200 02/03/23 05:00 BMP - BASIC METABOLIC PANEL [CHEM] DAILYLAB CBC - COMP BLD CT W/AUTO DIFF [HEME] DAILYLAB Subjective - Subjective Patient Reports: Resting Comfortably, No Complaints Objective Vital Signs: Vital Signs - 24 hr 02/01/23 02/02/23 02/02/23 16:00 00:10 08:00 Temperature 36.5 C 36.3 C L 36.3 C L Heart Rate [ 72 72 70 Brachial] Respiratory 20 18 18 Rate Blood Pressure 147/89 H 149/68 H [Left Brachial artery] Blood Pressure 151/66 H 149/68 H [Right Brachial artery] O2 Saturation 93 94 97 Oxygen O2 Source Room air I&O (Last 24 Hrs): Intake and Output Totals x24h 01/31/23 02/01/23 02/02/23 23:59 23:59 23:59 Intake Total 2630.000 1531 1120 Output Total 2750 1700 600 Balance -120.000 -169 520 General: No acute distress, Other (Fatigued) HEENT: Mucous membr. moist/pink, Other (wearing glasses) Neck: Supple Neuro: Other (Fatigued, slow to answer, 3-word sentences, L-sided neglect, L arm and leg weakness) Cardiovascular: Regular rate Respiratory: No respiratory distress Abdomen: Soft Extremities: No edema, Other (Joints have RA deformities) - Results Results: Laboratory Results WBC 7.6 x10^3/uL (4.8-10.8) 01/31/23 05:41 RBC 4.22 10^6/uL (4.20-5.40) 01/31/23 05:41 Hgb 12.3 g/dL (12.0-16.0) 01/31/23 05:41 Hct 38.1 % (37.0-47.0) 01/31/23 05:41 MCV 90.3 fL (81.0-99.0) 01/31/23 05:41 MCH 29.1 pg (27.0-31.0) 01/31/23 05:41 MCHC 32.3 g/dL (32.0-36.0) 01/31/23 05:41 RDW 14.1 % (12.0-15.0) 01/31/23 05:41 Plt Count 217 10^3/uL (130-450) 01/31/23 05:41 MPV 9.4 fL (7.9-10.8) 01/31/23 05:41 Neut # (Auto) 4.1 10^3/uL (1.5-6.6) 01/31/23 05:41 Lymph # (Auto) 1.6 10^3/uL (1.5-3.5) 01/31/23 05:41 [place] # (Auto) 1.3 10^3/uL (0.0-1.0) H 01/31/23 05:41 Eos # (Auto) 0.5 10^3/uL (0.0-0.7) 01/31/23 05:41 Baso # (Auto) 0.1 10^3/uL (0.0-0.1) 01/31/23 05:41 Absolute Nucleated RBC 0.00 x10^3/uL 01/31/23 05:41 Total Counted 100 01/30/23 05:34 Band Neuts % (Manual) 1 % (0-10) 01/30/23 05:34 Abnorm Lymph % (Manual) 0 % 01/30/23 05:34 Nucleated RBC % 0.0 /100WBC 01/31/23 05:41 Neutrophils # (Manual) 7.7 10^3/uL (1.5-6.6) H 01/30/23 05:34 Lymphocytes # (Manual) 1.1 10^3/uL (1.5-3.5) L 01/30/23 05:34 Monocytes # (Manual) 0.9 10^3/uL (0.0-1.0) 01/30/23 05:34 Eosinophils # (Manual) 0.2 10^3/uL (0-0.7) 01/30/23 05:34 Basophils # (Manual) 0.0 10^3/uL (0-0.1) 01/30/23 05:34 Differential Comment MANUAL DIFFERENTIAL 01/30/23 05:34 Platelet Estimate NORMAL (130-450,000) (NORMAL) 01/30/23 05:34 RBC Morph Micro Appear NORMAL APPEARANCE (NORMAL) 01/30/23 05:34 PT 13.4 secs (9.9-12.6) H 01/25/23 12:18 INR 1.2 (0.8-1.2) 01/25/23 12:18 Sodium 134 mmol/L (135-145) L 02/02/23 09:00 Potassium 3.4 mmol/L (3.5-4.5) L 02/02/23 09:00 Chloride 102 mmol/L (101-111) 02/02/23 09:00 Carbon Dioxide 25 mmol/L (21-32) 02/02/23 09:00 Anion Gap 7.0 (6-13) 02/02/23 09:00 BUN 9 mg/dL (6-20) 02/02/23 09:00 Creatinine 0.5 mg/dL (0.6-1.3) L 02/02/23 09:00 Estimated GFR (MDRD) 119 (>89) 02/02/23 09:00 Glucose 137 mg/dL (74-104) H 02/02/23 09:00 POC Whole Bld Glucose 140 mg/dL (70 - 100) H 01/30/23 11:10 Lactic Acid 1.6 mmol/L (0.5-2.2) 01/25/23 16:10 Calcium 8.9 mg/dL (8.5-10.3) 02/02/23 09:00 Phosphorus 2.8 mg/dL (2.5-5.0) 01/31/23 05:41 Magnesium 1.6 mg/dL (1.7-2.3) L 02/02/23 09:00 Total Bilirubin 0.8 mg/dL (0.2-1.0) 01/29/23 10:44 AST 21 IU/L (10-42) 01/29/23 10:44 ALT 13 IU/L (10-60) 01/29/23 10:44 Alkaline Phosphatase 76 IU/L (42-121) 01/29/23 10:44 Ammonia 25.1 umol/L (18-72) 01/29/23 10:44 Total Protein 7.0 g/dL (6.4-8.9) 01/29/23 10:44 Albumin 3.7 g/dL (3.2-5.5) 01/29/23 10:44 Globulin 3.3 g/dL (2.1-4.2) 01/29/23 10:44 Albumin/Globulin Ratio 1.1 (1.0-2.2) 01/29/23 10:44 Triglycerides 89 mg/dL (48-352) 01/30/23 05:34 Cholesterol 116 mg/dL (-200) 01/30/23 05:34 LDL Cholesterol, Calc 46 mg/dL (-129) 01/30/23 05:34 VLDL Cholesterol 18 mg/dL 01/30/23 05:34 HDL Cholesterol 52 mg/dL (60-) L 01/30/23 05:34 LDL/HDL Ratio 0.9 (<4.4) 01/30/23 05:34 Cholesterol/HDL Ratio 2.2 (<4.4) 01/30/23 05:34 Lipase 10 U/L (11-82) L 01/25/23 12:18 Urine Color ORANGE 01/25/23 13:17 Urine Clarity CLEAR (CLEAR) 01/25/23 13:17 Urine pH 5.5 PH (5.0-7.5) 01/25/23 13:17 Ur Specific [place] >=1.030 (1.002-1.030) H 01/25/23 13:17 Urine Protein 100 mg/dL (NEGATIVE) H 01/25/23 13:17 Urine Glucose (UA) NEGATIVE mg/dL (NEGATIVE) 01/25/23 13:17 Urine Ketones 15 mg/dL (NEGATIVE) H 01/25/23 13:17 Urine Occult Blood MODERATE (NEGATIVE) H 01/25/23 13:17 Urine Nitrite NEGATIVE (NEGATIVE) 01/25/23 13:17 Urine Bilirubin NEGATIVE (NEGATIVE) 01/25/23 13:17 Urine Urobilinogen 1 (NORMAL) E.U./dL (NORMAL) 01/25/23 13:17 Ur Leukocyte Esterase TRACE (NEGATIVE) H 01/25/23 13:17 Urine RBC 11-25 /HPF (0-5) H 01/25/23 13:17 Urine WBC >25 /HPF (0-5) H 01/25/23 13:17 Urine WBC Clumps PRESENT 01/25/23 13:17 Ur Epithelial Cells FEW Transitional /HPF (<= Few) 01/25/23 13:17 Ur Squamous Epith Cells FEW Squamous (<= Few) 01/25/23 13:17 Urine Bacteria Few /HPF (None Seen) 01/25/23 13:17 Ur Microscopic Review INDICATED 01/25/23 13:17 Urine Culture Comments INDICATED 01/25/23 13:17 Stl C. diff Tox B Gene POSITIVE (NEGATIVE) A* 02/01/23 00:15 - Procedures Procedures: Procedures REPLACEMENT OF RIGHT LENS WITH SYNTH SUB, PERC APPROACH (01/31/17)
[2023-02-02] MEDS: ATORVASTATIN 40 MG TABLET PO SCH (17:15)
[2023-02-03] MEDS: SODIUM CHLORIDE FLUSH 0.9% 10 ML SYRINGE IVP SCH ×3 (01:07→17:50)
[2023-02-03 06:20] LABS: BASOPHILS # (AUTO) 0.1 10^3/uL (0.0-0.1); BASOPHILS % (AUTO) 1.2 %; EOSINOPHILS # (AUTO) 0.5 10^3/uL (0.0-0.7); EOSINOPHILS % (AUTO) 6.4 %; HCT - HEMATOCRIT 37.4 % (37.0-47.0); HGB - HEMOGLOBIN 12.2 g/dL (12.0-16.0); LYMPHOCYTES # (AUTO) 1.8 10^3/uL (1.5-3.5); MEAN CORPUSCULAR HGB CONC 32.6 g/dL (32.0-36.0); MEAN CORPUSCULAR VOLUME 88.8 fL (81.0-99.0); MEAN PLATELET VOLUME 9.1 fL (7.9-10.8); MONOCYTES # (AUTO) 1.1 10^3/uL (0.0-1.0); MONOCYTES % (AUTO) 14.4 %; NEUTROPHILS # (AUTO) 4.1 10^3/uL (1.5-6.6); NEUTROPHILS % (AUTO) 53.7 %; PLT - PLATELET COUNT 253 10^3/uL (130-450); RED BLOOD COUNT 4.21 10^6/uL (4.20-5.40); RED CELL DISTRIBUTION WIDTH 13.9 % (12.0-15.0); WHITE BLOOD COUNT 7.6 x10^3/uL (4.8-10.8)
[2023-02-03] MEDS: PANTOPRAZOLE 40 MG TABLET PO SCH (06:28)
[2023-02-03 06:44] LABS: CREATININE 0.5 mg/dL (0.6-1.3); POTASSIUM 3.4 mmol/L (3.5-4.5)
[2023-02-03] MEDS ORDERED: SODIUM CHLORIDE 0.9% 1,000 ML IV SCH (08:12)
--- NOTE | 2023-02-03 08:15 | PROVIDER PROGRESS NOTE ---
Assessment/Plan - Problem List (1) C. difficile diarrhea Assessment/Plan: During her syncopal episode on 01/30, she had liquid stool into her colostomy bag. Because of getting antibiotics, a C.diff was ordered. Stool sample result is (+) for C. diff The stool is less liquidy and volume is less, only 1 BM yesterday Plan: Cont isolation precautions Cont Vanco 125 mg po QID, a 7-day course is planned, stop date entered I will taper down iv rate and stop iv fluids after today (2) Right thalamic stroke Assessment/Plan: Facial droop & confusion were her presenting complaints. Then these resolved. Then both returned 01/26 afternoon and MRI of the head was positive after CT of head with CT angiogram were negative. The MRI confirmed a right thalamic stroke. She was started on aspirin and Plavix. On telemetry she has not had A-fib and no arrhythmia present. Blood pressure allowed permissive hypertension for 2 days. (The highest BP was 172/69). A CT head was repeated 01/28 and 01/29 showed the R thalamic stroke, no new findings. Her angio head and neck showed no stenoses Echocardiogram showed normal LVEF and RVEF, no clot, and no shunt by color Doppler, no saline "bubble" study was done. Her fasting lipid panel showed total chol of 116 and LDL of 46 Plan: PT and OT recommend patient go to group home facility for rehab, and she agrees, the plan is to go to [facility] when medically cleared. However, she needs a [facility] plan after rehab at SNF, since she cannot return to living at home alone Cont daily statin, aspirin and Plavix. Plavix will be for 3 weeks. (3) Cognitive impairment Assessment/Plan: During the phone call with the daughter, I learned that the patient was having cognnitive decline for a year: her neighbor checked on her daily and had to remind her to eat. The patient was not opening her mail, not paying her bills. On 01/31 the pt had cognitive evaluation done by OT. She participated and sco red which is consistent with dementia. There is better snf memory than short term memory, since the pt recognized her friends Samaria and Tobias, as they walked into her room to visit that day. Plan: SNF for stroke rehab then LTC would be her best option. The patient cannot return to live at home alone because of her stroke with new motor deficits and her cognitive impairment. I updated the daughter Digna by phone on 02/01 on all the above. She plans to come here from [place] and will start the process for obtaining guardianship. (4) HTN Assessment/Plan: Her home dose of Amlodipine 5 mg was started by the admitting telemedicine doctor. Once her med list was reconciled, the Amlodipine fell off, but she kept getting the adm order. I suspect that orthostasis caused the syncope that she had on 01/30, so she has had several days of iv NS Plan: Cont Amlodipine She is no longer orthostatic, so will stop iv hydration after today and I stopped the daily orthostatic VS checks (5) RA Assessment/Plan: The patient told me she had pain in the right wrist and both feet. I asked her if she takes Motrin for this and she answered she takes Prednisone for this. Her only home med is Leflunomide, which is not on formulary here and we do not have her home bottle of Leflunomide to administer to her here. Plan: Cont Voltaren cream to the wrists, knuckles, ankles and feet Cont Tylenol prn pain as well (6) Colostomy Assessment/Plan: Has hx of ostomy s/p bowel surgery During her syncopal episode, she had liquid stool into the ostomy, and a C.diff was ordered and came back (+) Plan: As in #1 (7) UTI (urinary tract infection) Impression: TREATED She had no fever or elev WBC, only altered mental status. Her U/A had t ransitional cells and epithelial cells. She was on empiric Rocephin for several days. Blood cultures were negative to date. Urine culture ended up growing strep viridans. She got 4 days of antibx which was then stopped since she had no urinary complaints (8) Orthostatic hypotension Assessment/Plan: RESOLVED Given the syncopal episode, I ordered orthostatic VS which were abn. Her DCh was postponed. She has had several days of iv fluids She is no longer orthostatic today Plan: I will stop iv fluids Cont daily Amlodipine Cancel daily orthostatic VS checks (9) Syncope Assessment/Plan: NONE FURTHER PT and OT were working with the patient 01/30, and she was able to stand up with assistance and hold the walker. Then she had syncope: Her legs buckled, her eyes rolled back in her head and she slumped. She was quickly put into the recliner chair. Her head CT was repeated and had no new findings. She was orthostatic and that has been treated - Current Meds Current Meds: Current Medications Generic Name Dose Route Start Last Admin Trade Name Julio Cesarq PRN Reason Stop Dose Admin Acetaminophen 1,000 mg 01/26/23 10:16 01/28/23 08:58 Acetaminophen 500 Mg Tablet PO 1,000 mg Q6H PRN Administration Mild Pain Or Fever>38c(100.4f) Amlodipine Besylate 2.5 mg 02/02/23 12:00 02/02/23 12:15 Amlodipine 5 Mg Tablet PO 2.5 mg 1200 GOYO Administration Aspirin 81 mg 01/27/23 13:00 02/02/23 09:13 Aspirin Ec 81 Mg Tablet PO 81 mg DAILY GOYO Administration Atorvastatin Calcium 40 mg 01/30/23 21:00 02/02/23 17:15 Atorvastatin 40 Mg Tablet PO 40 mg QPM GOYO Administration Clopidogrel Bisulfate 75 mg 01/28/23 09:00 02/02/23 09:12 Clopidogrel 75 Mg Tablet PO 75 mg DAILY GOYO Administration Diclofenac Sodium 2 gm 01/30/23 13:00 02/02/23 21:08 Diclofenac Sodium 1% Gel 50 Gm Tube TOP Not Given QID GOYO Enoxaparin Sodium 40 mg 01/26/23 09:00 02/02/23 09:12 Enoxaparin 40 Mg/0.4 Ml Syringe SUBQ 40 mg DAILY GOYO Administration Multivitamins/Minerals 1 tab 01/28/23 17:00 02/02/23 09:13 Multivitamin W/Minerals Tablet PO 1 tab DAILYWM GOYO Administration Pantoprazole Sodium 40 mg 01/27/23 07:00 02/03/23 06:28 Pantoprazole 40 Mg Tablet PO 40 mg QDAC GOYO Administration Leflunomide [Arava] 1 each 01/26/23 09:00 02/02/23 09:14 10 Mg PO Not Given DAILY GOYO Psyllium Hydrophilic Mucilloid 1 packet 02/01/23 09:00 02/02/23 09:12 Psyllium Packet PO 1 packet DAILY GOYO Administration Saccharomyces Boulardii 500 mg 02/01/23 08:00 02/02/23 17:09 Saccharomyces Boulardii 250 Mg Capsule PO 500 mg BIDWM GOYO Administration Sodium Chloride 10 ml 01/26/23 01:00 02/03/23 01:07 Sodium Chloride Flush 0.9% 10 Ml Syringe IVP 10 ml 0100,0900,1700 GOYO Administration Vancomycin HCl 125 mg 02/01/23 05:00 02/02/23 21:08 Vancomycin 125 Mg Capsule PO 125 mg QID GOYO Administration - Lab Result Fish Bone Diagrams: 02/03/23 06:10 02/03/23 06:10 - Additional Planning My Orders: My Active Orders 02/02/23 12:00 amLODIPine [Norvasc] 2.5 mg PO 1200 02/03/23 05:00 MAGNESIUM [CHEM] Routine 02/03/23 08:12 Sodium Chloride 0.9% [Normal Saline 0.9%] 1,000 ml IV TKO Subjective - Subjective Patient Reports: No Complaints Nursing Reports: Other (She is more talkative today and more alert.) Objective Vital Signs: Vital Signs - 24 hr 02/02/23 02/02/23 16:00 23:56 Temperature 36.9 C 36.7 C Heart Rate [ 71 70 Brachial] Respiratory 20 18 Rate Blood Pressure 146/68 H [Left Brachial artery] Blood Pressure 153/64 H [Right Brachial artery] O2 Saturation 96 97 Oxygen O2 Source Room air I&O (Last 24 Hrs): Intake and Output Totals x24h 02/01/23 02/02/23 02/03/23 23:59 23:59 23:59 Intake Total 1531 2637 Output Total 1700 1100 900 Balance -169 1537 -900 General: Alert, No acute distress HEENT: Mucous membr. moist/pink, Other (Wearing glasses) Neck: Supple Neuro: Alert, Other (Left sided face arma dn leg weakness, soft speech) Cardiovascular: Regular rate, No murmurs Respiratory: No respiratory distress Abdomen: Soft Extremities: No clubbing, No edema, Other (Joint deformities from RA) - Results Results: Laboratory Results WBC 7.6 x10^3/uL (4.8-10.8) 02/03/23 06:10 RBC 4.21 10^6/uL (4.20-5.40) 02/03/23 06:10 Hgb 12.2 g/dL (12.0-16.0) 02/03/23 06:10 Hct 37.4 % (37.0-47.0) 02/03/23 06:10 MCV 88.8 fL (81.0-99.0) 02/03/23 06:10 MCH 29.0 pg (27.0-31.0) 02/03/23 06:10 MCHC 32.6 g/dL (32.0-36.0) 02/03/23 06:10 RDW 13.9 % (12.0-15.0) 02/03/23 06:10 Plt Count 253 10^3/uL (130-450) 02/03/23 06:10 MPV 9.1 fL (7.9-10.8) 02/03/23 06:10 Neut # (Auto) 4.1 10^3/uL (1.5-6.6) 02/03/23 06:10 Lymph # (Auto) 1.8 10^3/uL (1.5-3.5) 02/03/23 06:10 [place] # (Auto) 1.1 10^3/uL (0.0-1.0) H 02/03/23 06:10 Eos # (Auto) 0.5 10^3/uL (0.0-0.7) 02/03/23 06:10 Baso # (Auto) 0.1 10^3/uL (0.0-0.1) 02/03/23 06:10 Absolute Nucleated RBC 0.00 x10^3/uL 02/03/23 06:10 Total Counted 100 01/30/23 05:34 Band Neuts % (Manual) 1 % (0-10) 01/30/23 05:34 Abnorm Lymph % (Manual) 0 % 01/30/23 05:34 Nucleated RBC % 0.0 /100WBC 02/03/23 06:10 Neutrophils # (Manual) 7.7 10^3/uL (1.5-6.6) H 01/30/23 05:34 Lymphocytes # (Manual) 1.1 10^3/uL (1.5-3.5) L 01/30/23 05:34 Monocytes # (Manual) 0.9 10^3/uL (0.0-1.0) 01/30/23 05:34 Eosinophils # (Manual) 0.2 10^3/uL (0-0.7) 01/30/23 05:34 Basophils # (Manual) 0.0 10^3/uL (0-0.1) 01/30/23 05:34 Differential Comment MANUAL DIFFERENTIAL 01/30/23 05:34 Platelet Estimate NORMAL (130-450,000) (NORMAL) 01/30/23 05:34 RBC Morph Micro Appear NORMAL APPEARANCE (NORMAL) 01/30/23 05:34 PT 13.4 secs (9.9-12.6) H 01/25/23 12:18 INR 1.2 (0.8-1.2) 01/25/23 12:18 Sodium 137 mmol/L (135-145) 02/03/23 06:10 Potassium 3.4 mmol/L (3.5-4.5) L 02/03/23 06:10 Chloride 104 mmol/L (101-111) 02/03/23 06:10 Carbon Dioxide 26 mmol/L (21-32) 02/03/23 06:10 Anion Gap 7.0 (6-13) 02/03/23 06:10 BUN 9 mg/dL (6-20) 02/03/23 06:10 Creatinine 0.5 mg/dL (0.6-1.3) L 02/03/23 06:10 Estimated GFR (MDRD) 119 (>89) 02/03/23 06:10 Glucose 96 mg/dL (74-104) 02/03/23 06:10 POC Whole Bld Glucose 140 mg/dL (70 - 100) H 01/30/23 11:10 Lactic Acid 1.6 mmol/L (0.5-2.2) 01/25/23 16:10 Calcium 9.0 mg/dL (8.5-10.3) 02/03/23 06:10 Phosphorus 2.8 mg/dL (2.5-5.0) 01/31/23 05:41 Magnesium 1.6 mg/dL (1.7-2.3) L 02/02/23 09:00 Total Bilirubin 0.8 mg/dL (0.2-1.0) 01/29/23 10:44 AST 21 IU/L (10-42) 01/29/23 10:44 ALT 13 IU/L (10-60) 01/29/23 10:44 Alkaline Phosphatase 76 IU/L (42-121) 01/29/23 10:44 Ammonia 25.1 umol/L (18-72) 01/29/23 10:44 Total Protein 7.0 g/dL (6.4-8.9) 01/29/23 10:44 Albumin 3.7 g/dL (3.2-5.5) 01/29/23 10:44 Globulin 3.3 g/dL (2.1-4.2) 01/29/23 10:44 Albumin/Globulin Ratio 1.1 (1.0-2.2) 01/29/23 10:44 Triglycerides 89 mg/dL (48-352) 01/30/23 05:34 Cholesterol 116 mg/dL (-200) 01/30/23 05:34 LDL Cholesterol, Calc 46 mg/dL (-129) 01/30/23 05:34 VLDL Cholesterol 18 mg/dL 01/30/23 05:34 HDL Cholesterol 52 mg/dL (60-) L 01/30/23 05:34 LDL/HDL Ratio 0.9 (<4.4) 01/30/23 05:34 Cholesterol/HDL Ratio 2.2 (<4.4) 01/30/23 05:34 Lipase 10 U/L (11-82) L 01/25/23 12:18 Urine Color ORANGE 01/25/23 13:17 Urine Clarity CLEAR (CLEAR) 01/25/23 13:17 Urine pH 5.5 PH (5.0-7.5) 01/25/23 13:17 Ur Specific [place] >=1.030 (1.002-1.030) H 01/25/23 13:17 Urine Protein 100 mg/dL (NEGATIVE) H 01/25/23 13:17 Urine Glucose (UA) NEGATIVE mg/dL (NEGATIVE) 01/25/23 13:17 Urine Ketones 15 mg/dL (NEGATIVE) H 01/25/23 13:17 Urine Occult Blood MODERATE (NEGATIVE) H 01/25/23 13:17 Urine Nitrite NEGATIVE (NEGATIVE) 01/25/23 13:17 Urine Bilirubin NEGATIVE (NEGATIVE) 01/25/23 13:17 Urine Urobilinogen 1 (NORMAL) E.U./dL (NORMAL) 01/25/23 13:17 Ur Leukocyte Esterase TRACE (NEGATIVE) H 01/25/23 13:17 Urine RBC 11-25 /HPF (0-5) H 01/25/23 13:17 Urine WBC >25 /HPF (0-5) H 01/25/23 13:17 Urine WBC Clumps PRESENT 01/25/23 13:17 Ur Epithelial Cells FEW Transitional /HPF (<= Few) 01/25/23 13:17 Ur Squamous Epith Cells FEW Squamous (<= Few) 01/25/23 13:17 Urine Bacteria Few /HPF (None Seen) 01/25/23 13:17 Ur Microscopic Review INDICATED 01/25/23 13:17 Urine Culture Comments INDICATED 01/25/23 13:17 Stl C. diff Tox B Gene POSITIVE (NEGATIVE) A* 02/01/23 00:15 - Procedures Procedures: Procedures REPLACEMENT OF RIGHT LENS WITH SYNTH SUB, PERC APPROACH (01/31/17)
[2023-02-03] MEDS: VANCOMYCIN 125 MG CAPSULE PO SCH ×4 (09:14→21:07)
[2023-02-03] MEDS: SACCHAROMYCES BOULARDII 250 MG CAPSULE PO SCH ×2 (09:14→17:50)
[2023-02-03] MEDS: CLOPIDOGREL 75 MG TABLET PO SCH (09:14)
[2023-02-03] MEDS: ASPIRIN EC 81 MG TABLET PO SCH (09:14)
[2023-02-03] MEDS: PSYLLIUM PACKET PO SCH (09:14)
[2023-02-03] MEDS: MULTIVITAMIN W/MINERALS TABLET PO SCH (09:14)
[2023-02-03] MEDS: DICLOFENAC SODIUM 1% GEL 50 GM TUBE TOP SCH ×4 (09:15→21:07)
[2023-02-03] MEDS: ENOXAPARIN 40 MG/0.4 ML SYRINGE SUBQ SCH (09:16)
[2023-02-03] MEDS: Leflunomide [Arava] 10 MG PO SCH (09:16)
[2023-02-03] MEDS: amLODIPine 5 MG TABLET PO SCH (12:14)
[2023-02-03] MEDS: ATORVASTATIN 40 MG TABLET PO SCH (17:52)
[2023-02-04] MEDS: SODIUM CHLORIDE FLUSH 0.9% 10 ML SYRINGE IVP SCH ×4 (00:20→23:55)
[2023-02-04 06:05] LABS: CALCIUM 9.1 mg/dL (8.5-10.3); CREATININE 0.5 mg/dL (0.6-1.3); POTASSIUM 3.4 mmol/L (3.5-4.5)
[2023-02-04] MEDS: PANTOPRAZOLE 40 MG TABLET PO SCH (06:10)
[2023-02-04] MEDS: SACCHAROMYCES BOULARDII 250 MG CAPSULE PO SCH ×2 (08:46→17:14)
[2023-02-04] MEDS: ASPIRIN EC 81 MG TABLET PO SCH (08:47)
[2023-02-04] MEDS: ENOXAPARIN 40 MG/0.4 ML SYRINGE SUBQ SCH (08:47)
[2023-02-04] MEDS: MULTIVITAMIN W/MINERALS TABLET PO SCH (08:47)
[2023-02-04] MEDS: VANCOMYCIN 125 MG CAPSULE PO SCH ×4 (08:47→20:57)
[2023-02-04] MEDS: CLOPIDOGREL 75 MG TABLET PO SCH (08:47)
[2023-02-04] MEDS: DICLOFENAC SODIUM 1% GEL 50 GM TUBE TOP SCH ×4 (08:54→20:57)
[2023-02-04] MEDS: Leflunomide [Arava] 10 MG PO SCH (08:54)
[2023-02-04] MEDS: amLODIPine 5 MG TABLET PO SCH (11:56)
[2023-02-04] MEDS: PSYLLIUM PACKET PO SCH (11:56)
--- NOTE | 2023-02-04 15:19 | PROVIDER PROGRESS NOTE ---
Assessment/Plan - Problem List (1) C. difficile diarrhea Assessment/Plan: During her syncopal episode on 01/30, she had liquid stool enter her colostomy bag. Because of getting antibiotics, a C.diff was ordered and result was (+) for C. diff. She was started on po Vanco. This delayed her discharge The stool is now pudding consistency. As per our Infection marketing planning manager, Ann Marie Camacho, she can have infectious isolation stopped today Plan: Will stop isolation precautions today Cont Vanco 125 mg po QID, a 7-day course is planned, stop date entered (2) Right thalamic stroke Assessment/Plan: Facial droop & confusion were her presenting complaints. Then these resolved. Then both returned 01/26 afternoon and MRI of the head was positive after CT of head with CT angiogram were negative. The MRI confirmed a right thalamic stroke. CT head was repeated 01/28 and 01/29, because of worsening mentation and these showed the R thalamic stroke, no new findings. She has been on aspirin and Plavix. On telemetry she has not had A-fib and no arrhythmia present. Blood pressure was allowed permissive hypertension for 2 days. (The highest BP was 172/69). Her angio head and neck showed no stenoses Echocardiogram showed normal LVEF and RVEF, no clot, and no shunt by color Doppler, no saline "bubble" study was done. Her fasting lipid panel showed total chol of 116 and LDL of 46 Plan: Cont daily statin, aspirin and Plavix. Plavix will be for 3 weeks. ASA will be lifelong. PT and OT recommend patient go to [facility] for [facility], and she agrees. She has been accepted to go to [facility]. She is ready to go today, but [facility] did not have an admitting person there today and poss not tomorrow. SW has been working on this She needs a [facility] plan after rehab at SNF, since she cannot return to living at home alone. The daughter wants her to go to LTC (3) Cognitive impairment Assessment/Plan: In speaking with the daughter, I learned that the patient was having cognitive decline for a year: her neighbor checked on her daily and had to remind her to eat. The patient was not opening her mail, not paying her bills. On 01/31 the pt had cognitive evaluation done by OT. She participated and scored 2/30 which is consistent with dementia. There is better fpc memory than short term memory, since the pt recognized her friends Samaria and Tobias, as they walked into her room to visit that day. Plan: SNF for stroke rehab then LTC would be her best option. The patient cannot return to live at home alone because of her stroke with new motor deficits and her cognitive impairment. I updated the daughter Digna by phone on 02/01 on all the above. She plans to come here from [place] and will start the process for obtaining guardianship. (4) HTN Assessment/Plan: Her home dose of Amlodipine 5 mg was started by the admitting telemedicine doctor. Once her med list was reconciled, the Amlodipine fell off, but she kept getting the adm order. I suspect that orthostasis caused the syncope that she had on 01/30, so she needed several days of iv NS Plan: Cont Amlodipine She is no longer orthostatic, so iv hydration was stopped and I stopped the daily orthostatic VS checks (5) RA Assessment/Plan: The patient told me she had pain in the right wrist and both feet. I asked her if she takes Motrin for this and she answered she takes Prednisone for this. Her only home med is Leflunomide, which is not on formulary here and we do not have her home bottle of Leflunomide to administer to her here. Plan: Cont Voltaren cream prn to the wrists, knuckles, ankles and feet Cont Tylenol prn pain as well (6) Colostomy Assessment/Plan: Has hx of ostomy s/p bowel surgery During her syncopal episode, she had liquid stool entering into the ostomy, and a C.diff was ordered and came back (+) Plan: As in #1 (7) UTI (urinary tract infection) Impression: TREATED She had no fever or elev WBC, only altered mental status. Her U/A had trans itional cells and epithelial cells. She was on empiric Rocephin for several days. Blood cultures were negative to date. Urine culture ended up growing strep viridans. She got 4 days of antibx which was then stopped since she had no urinary complaints (8) Orthostatic hypotension Assessment/Plan: RESOLVED Given the syncopal episode, I ordered orthostatic VS which were abn. Her DCh was postponed. She has had several days of iv fluids She is no longer orthostatic (9) Syncope Assessment/Plan: NONE FURTHER PT and OT were working with the patient 01/30, and she was able to stand up with assistance and hold the walker. Then she had syncope: Her legs buckled, her eyes rolled back in her head and she slumped. She was quickly put into the recliner chair. Her head CT was repeated and had no new findings. She was ort hostatic and that has been treated - Current Meds Current Meds: Current Medications Generic Name Dose Route Start Last Admin Trade Name Freq PRN Reason Stop Dose Admin Acetaminophen 1,000 mg 01/26/23 10:16 01/28/23 08:58 Acetaminophen 500 Mg Tablet PO 1,000 mg Q6H PRN Administration Mild Pain Or Fever>38c(100.4f) Amlodipine Besylate 2.5 mg 02/02/23 12:00 02/04/23 11:56 Amlodipine 5 Mg Tablet PO 2.5 mg 1200 GOYO Administration Aspirin 81 mg 01/27/23 13:00 02/04/23 08:47 Aspirin Ec 81 Mg Tablet PO 81 mg DAILY GOYO Administration Atorvastatin Calcium 40 mg 01/30/23 21:00 02/03/23 17:52 Atorvastatin 40 Mg Tablet PO 40 mg QPM GOYO Administration Clopidogrel Bisulfate 75 mg 01/28/23 09:00 02/04/23 08:47 Clopidogrel 75 Mg Tablet PO 75 mg DAILY GOYO Administration Diclofenac Sodium 2 gm 01/30/23 13:00 02/04/23 13:17 Diclofenac Sodium 1% Gel 50 Gm Tube TOP Not Given QID GOYO Enoxaparin Sodium 40 mg 01/26/23 09:00 02/04/23 08:47 Enoxaparin 40 Mg/0.4 Ml Syringe SUBQ 40 mg DAILY GOYO Administration Multivitamins/Minerals 1 tab 01/28/23 17:00 02/04/23 08:47 Multivitamin W/Minerals Tablet PO 1 tab DAILYWM GOYO Administration Pantoprazole Sodium 40 mg 01/27/23 07:00 02/04/23 06:10 Pantoprazole 40 Mg Tablet PO 40 mg QDAC GOYO Administration Leflunomide [Arava] 1 each 01/26/23 09:00 02/04/23 08:54 10 Mg PO Not Given DAILY [facility] Psyllium Hydrophilic Mucilloid 1 packet 02/01/23 09:00 02/04/23 11:56 Psyllium Packet PO 1 packet DAILY GOYO Administration Saccharomyces Boulardii 500 mg 02/01/23 08:00 02/04/23 08:46 Saccharomyces Boulardii 250 Mg Capsule PO 500 mg BIDWM GOYO Administration Sodium Chloride 10 ml 01/26/23 01:00 02/04/23 08:48 Sodium Chloride Flush 0.9% 10 Ml Syringe IVP 10 ml 0100,0900,1700 GOYO Administration Vancomycin HCl 125 mg 02/01/23 05:00 02/04/23 13:23 Vancomycin 125 Mg Capsule PO 02/08/23 00:01 125 mg QID GOYO Administration - Lab Result Fish Bone Diagrams: 02/03/23 06:10 02/04/23 05:21 - Additional Planning My Orders: My Active Orders 02/04/23 10:28 Infection Precautions - Discon [RC] .ONCE 02/04/23 15:06 Miscellaenous Nursing Order [RC] ONCE 02/05/23 05:00 BMP - BASIC METABOLIC PANEL [CHEM] DAILYLAB 02/06/23 05:00 BMP - BASIC METABOLIC PANEL [CHEM] DAILYLAB Subjective - Subjective Patient Reports: Resting Comfortably, No Complaints Objective Vital Signs: Vital Signs - 24 hr 02/03/23 02/04/23 02/04/23 15:58 00:01 08:00 Temperature 36.3 C L 36.9 C 36.4 C L Heart Rate [ 72 74 74 Brachial] Respiratory 14 18 16 Rate Blood Pressure 134/66 H [Left Brachial artery] Blood Pressure 146/72 H 151/71 H [Right Brachial artery] O2 Saturation 99 97 98 Oxygen O2 Source Room air I&O (Last 24 Hrs): Intake and Output Totals x24h 02/02/23 02/03/23 02/04/23 23:59 23:59 23:59 Intake Total 2637 1164.667 660 Output Total 1100 2175 1950 Balance 1537 -1010.333 -1290 General: Alert, No acute distress, Other (Disheveled, thin elderly female) HEENT: Mucous membr. moist/pink, Other (wearing glasses) Neck: Supple, No JVD Neuro: Alert, Other (L face, arm and leg are weak, and she has L sided neglect) Cardiovascular: Regular rate, No murmurs Respiratory: No respiratory distress, Breath sounds nml Abdomen: Normal bowel sounds, Soft, Other (colostomy ion place) Extremities: No clubbing, No edema, No tenderness/swelling - Results Results: Laboratory Results WBC 7.6 x10^3/uL (4.8-10.8) 02/03/23 06:10 RBC 4.21 10^6/uL (4.20-5.40) 02/03/23 06:10 Hgb 12.2 g/dL (12.0-16.0) 02/03/23 06:10 Hct 37.4 % (37.0-47.0) 02/03/23 06:10 MCV 88.8 fL (81.0-99.0) 02/03/23 06:10 MCH 29.0 pg (27.0-31.0) 02/03/23 06:10 MCHC 32.6 g/dL (32.0-36.0) 02/03/23 06:10 RDW 13.9 % (12.0-15.0) 02/03/23 06:10 Plt Count 253 10^3/uL (130-450) 02/03/23 06:10 MPV 9.1 fL (7.9-10.8) 02/03/23 06:10 Neut # (Auto) 4.1 10^3/uL (1.5-6.6) 02/03/23 06:10 Lymph # (Auto) 1.8 10^3/uL (1.5-3.5) 02/03/23 06:10 [place] # (Auto) 1.1 10^3/uL (0.0-1.0) H 02/03/23 06:10 Eos # (Auto) 0.5 10^3/uL (0.0-0.7) 02/03/23 06:10 Baso # (Auto) 0.1 10^3/uL (0.0-0.1) 02/03/23 06:10 Absolute Nucleated RBC 0.00 x10^3/uL 02/03/23 06:10 Total Counted 100 01/30/23 05:34 Band Neuts % (Manual) 1 % (0-10) 01/30/23 05:34 Abnorm Lymph % (Manual) 0 % 01/30/23 05:34 Nucleated RBC % 0.0 /100WBC 02/03/23 06:10 Neutrophils # (Manual) 7.7 10^3/uL (1.5-6.6) H 01/30/23 05:34 Lymphocytes # (Manual) 1.1 10^3/uL (1.5-3.5) L 01/30/23 05:34 Monocytes # (Manual) 0.9 10^3/uL (0.0-1.0) 01/30/23 05:34 Eosinophils # (Manual) 0.2 10^3/uL (0-0.7) 01/30/23 05:34 Basophils # (Manual) 0.0 10^3/uL (0-0.1) 01/30/23 05:34 Differential Comment MANUAL DIFFERENTIAL 01/30/23 05:34 Platelet Estimate NORMAL (130-450,000) (NORMAL) 01/30/23 05:34 RBC Morph Micro Appear NORMAL APPEARANCE (NORMAL) 01/30/23 05:34 PT 13.4 secs (9.9-12.6) H 01/25/23 12:18 INR 1.2 (0.8-1.2) 01/25/23 12:18 Sodium 139 mmol/L (135-145) 02/04/23 05:21 Potassium 3.4 mmol/L (3.5-4.5) L 02/04/23 05:21 Chloride 105 mmol/L (101-111) 02/04/23 05:21 Carbon Dioxide 28 mmol/L (21-32) 02/04/23 05:21 Anion Gap 6.0 (6-13) 02/04/23 05:21 BUN 8 mg/dL (6-20) 02/04/23 05:21 Creatinine 0.5 mg/dL (0.6-1.3) L 02/04/23 05:21 Estimated GFR (MDRD) 119 (>89) 02/04/23 05:21 Glucose 100 mg/dL (74-104) 02/04/23 05:21 POC Whole Bld Glucose 140 mg/dL (70 - 100) H 01/30/23 11:10 Lactic Acid 1.6 mmol/L (0.5-2.2) 01/25/23 16:10 Calcium 9.1 mg/dL (8.5-10.3) 02/04/23 05:21 Phosphorus 2.8 mg/dL (2.5-5.0) 01/31/23 05:41 Magnesium 1.8 mg/dL (1.7-2.3) 02/04/23 05:21 Total Bilirubin 0.8 mg/dL (0.2-1.0) 01/29/23 10:44 AST 21 IU/L (10-42) 01/29/23 10:44 ALT 13 IU/L (10-60) 01/29/23 10:44 Alkaline Phosphatase 76 IU/L (42-121) 01/29/23 10:44 Ammonia 25.1 umol/L (18-72) 01/29/23 10:44 Total Protein 7.0 g/dL (6.4-8.9) 01/29/23 10:44 Albumin 3.7 g/dL (3.2-5.5) 01/29/23 10:44 Globulin 3.3 g/dL (2.1-4.2) 01/29/23 10:44 Albumin/Globulin Ratio 1.1 (1.0-2.2) 01/29/23 10:44 Triglycerides 89 mg/dL (48-352) 01/30/23 05:34 Cholesterol 116 mg/dL (-200) 01/30/23 05:34 LDL Cholesterol, Calc 46 mg/dL (-129) 01/30/23 05:34 VLDL Cholesterol 18 mg/dL 01/30/23 05:34 HDL Cholesterol 52 mg/dL (60-) L 01/30/23 05:34 LDL/HDL Ratio 0.9 (<4.4) 01/30/23 05:34 Cholesterol/HDL Ratio 2.2 (<4.4) 01/30/23 05:34 Lipase 10 U/L (11-82) L 01/25/23 12:18 Urine Color ORANGE 01/25/23 13:17 Urine Clarity CLEAR (CLEAR) 01/25/23 13:17 Urine pH 5.5 PH (5.0-7.5) 01/25/23 13:17 Ur Specific [place] >=1.030 (1.002-1.030) H 01/25/23 13:17 Urine Protein 100 mg/dL (NEGATIVE) H 01/25/23 13:17 Urine Glucose (UA) NEGATIVE mg/dL (NEGATIVE) 01/25/23 13:17 Urine Ketones 15 mg/dL (NEGATIVE) H 01/25/23 13:17 Urine Occult Blood MODERATE (NEGATIVE) H 01/25/23 13:17 Urine Nitrite NEGATIVE (NEGATIVE) 01/25/23 13:17 Urine Bilirubin NEGATIVE (NEGATIVE) 01/25/23 13:17 Urine Urobilinogen 1 (NORMAL) E.U./dL (NORMAL) 01/25/23 13:17 Ur Leukocyte Esterase TRACE (NEGATIVE) H 01/25/23 13:17 Urine RBC 11-25 /HPF (0-5) H 01/25/23 13:17 Urine WBC >25 /HPF (0-5) H 01/25/23 13:17 Urine WBC Clumps PRESENT 01/25/23 13:17 Ur Epithelial Cells FEW Transitional /HPF (<= Few) 01/25/23 13:17 Ur Squamous Epith Cells FEW Squamous (<= Few) 01/25/23 13:17 Urine Bacteria Few /HPF (None Seen) 01/25/23 13:17 Ur Microscopic Review INDICATED 01/25/23 13:17 Urine Culture Comments INDICATED 01/25/23 13:17 Stl C. diff Tox B Gene POSITIVE (NEGATIVE) A* 02/01/23 00:15 - Procedures Procedures: Procedures REPLACEMENT OF RIGHT LENS WITH SYNTH SUB, PERC APPROACH (01/31/17)
[2023-02-04] MEDS: ATORVASTATIN 40 MG TABLET PO SCH (20:57)
[2023-02-05 05:59] LABS: CALCIUM 9.2 mg/dL (8.5-10.3); CREATININE 0.5 mg/dL (0.6-1.3); POTASSIUM 3.5 mmol/L (3.5-4.5)
[2023-02-05] MEDS: PANTOPRAZOLE 40 MG TABLET PO SCH (06:14)
[2023-02-05] MEDS: ENOXAPARIN 40 MG/0.4 ML SYRINGE SUBQ SCH (08:29)
[2023-02-05] MEDS: MULTIVITAMIN W/MINERALS TABLET PO SCH (08:29)
[2023-02-05] MEDS: SACCHAROMYCES BOULARDII 250 MG CAPSULE PO SCH (08:29)
[2023-02-05] MEDS: VANCOMYCIN 125 MG CAPSULE PO SCH (08:29)
[2023-02-05] MEDS: CLOPIDOGREL 75 MG TABLET PO SCH (08:29)
[2023-02-05] MEDS: ASPIRIN EC 81 MG TABLET PO SCH (08:30)
[2023-02-05] MEDS: DICLOFENAC SODIUM 1% GEL 50 GM TUBE TOP SCH (08:30)
[2023-02-05] MEDS: Leflunomide [Arava] 10 MG PO SCH (08:32)
[2023-02-05] MEDS: SODIUM CHLORIDE FLUSH 0.9% 10 ML SYRINGE IVP SCH (08:32)
[2023-02-05] MEDS: PSYLLIUM PACKET PO SCH (08:37)
--- NOTE | 2023-02-05 08:56 | Discharge Plan ---
Discharge Plan for SNF / [facility] - Discharge Plan And Transition Orders Problem Reviewed?: Yes Disposition: 03 SNF DC/Xfer Condition: Fair Allergies and Adverse Reactions: Allergies Allergy/AdvReac Type Severity Reaction Status Date / Time iodine Allergy Severe Respiratory Verified 09/16/21 13:17 methotrexate Allergy Severe Respiratory Verified 09/16/21 13:17 venom-honey bee Allergy Severe Respiratory Verified 09/16/21 13:17 adhesive tape Allergy Mild Itching Verified 09/16/21 13:17 latex Allergy Rash Verified 09/16/21 13:17 shellfish derived AdvReac Severe "almost Verified 09/16/21 13:17 " Health Concerns: 77-year-old female who lives alone and was completely independent and presented with acute metabolic encephalopathy on January 25. There were descriptions of left facial droop at the scene before EMS picked her up. No obvious focal deficits in the emergency room and workup for stroke included negative CT of head and CT angiogram. Found to have a UTI and treated for that. The next day left-sided weakness returned. MRI of the head confirmed a right thalamic stroke. She was treated for UTI, started rehab for the stroke. 2 problems during hospitalization include orthostatic syncope and C. difficile diarrhea. Cognitive evaluation by OT scored 2/30. She is now transitioned to short-term rehab to improve mobility, strength, and hopefully regain some cognitive functi on. Plan of Treatment: Short-term physical rehab to then transition to long-term care under the guidance of her daughter and DPOA. Daughter will be establishing guardianship. Treatment for C. difficile colitis in February 11. 21 days of Plavix will end February 15. Decision should be made whether to continue Plavix and discontinue aspirin. Or continue aspirin and discontinue Plavix. Because of the orthostatic hypotension, her antihypertensives that she was on before admission were discontinued. This consisted of amlodipine. Blood pressure should be monitored on a regular basis to make sure she does not need resumption of her medication Care Goals: To regain cognitive function to the best of her ability. Assessment: Patient is pleasant, alert, able to follow commands but disoriented to time and place and occasionally situation. - SNF / [facility] Transition Orders Admit to (Facility): [facility] Under the care of (Name): Luisana Metz Discharge Diagnosis: 1. Right thalamic stroke 2. Severe dementia 3. C. difficile diarrhea 4. Strep viridans UTI 5. Hypertension 6. Rheumatoid arthritis 7. Status post bowel resection, history of ostomy 8. Orthostatic hypotension 9. Orthostatic syncope Medicare Certification Statement: I certify that [facility] is medically necessary on a continuing basis for any of the conditions for which she/he is receiving care during hospitalization. Notify PCP of admission and forward orders to primary provider for signature. Weight on admission and: Monthly Other Notification Orders: Call PCP immediately if patient develops dyspnea, chest pain/tightness or edema. House Bowel Program: Yes Additional Bowel Program Orders: If no BM after 2 days, nurse may give M.O.M. 30ml PO PRN and/or ducolax Supp 1 [facility] and/or ROSENDO 250mg P.O., and/or senna 1-2 tabs PO. On day 3 nurse may give repeat above order until residents constipation is resolved. Annual Influenza Vaccine (between Nov 02 and June 01): Yes Two-step PPD per [facility] [phone] or approved exception documents: Yes Medication Orders: PLEASE REFER TO THE DISCHARGE MEDICATION LIST. Insulin Orders?: No - Diet Type: Geriatric Texture: Dysphagia [facility] Liquids: Thin May have monthly special meal: Yes - Therapies | Activity Therapy: Evaluation | Treat if indicated: Speech, PT, OT, Swallowing / ST Rehabilitation Potential: Maximize functional status Activity: Activity as Tolerated Assistance Devices: Wheelchair, Walker
[2023-02-05 11:48] VITALS: BP 138/78; O2SAT 98
--- NOTE | 2023-02-05 14:58 | DISCHARGE SUMMARY ---
Discharge Summary Admit Date: 01/25/23 Discharge Date: 02/05/23 Discharging Provider: Lucretia Dias MD Primary Care Provider: Luisana Metz MD Code Status: Attempt Resuscitation Condition at Discharge: Fair Discharge Disposition: SNF DC/Xfer - DIAGNOSES Discharge Diagnoses with Status of Each Condition: 1. Right thalamic stroke 2. Severe dementia 3. C. difficile diarrhea 4. Strep viridans UTI 5. Hypertension 6. Rheumatoid arthritis 7. Status post bowel resection, history of ostomy 8. Orthostatic hypotension 9. Orthostatic syncope - HPI History of Present Illness: Ms Pearl is a 77 yo F with hx rheumatoid arthritis, hypertension and ostomy s/p bowel surgery. Presents to the ER via EMS for evaluation of confusion, altered mental status. Last seen normal by friends at 3 PM yesterday. Patient reported feeling "disassociated" today, she was found by confused by her friend who went to visit today. Patient lives alone in [place]. At time of my evaluation patient is oriented to self, she is aware she is in the hospital, but not the city, not oriented to date. She is at not able to tell me why she is in the hospital. Denies headache, dizziness, weakness/numbness in any extremities. Denies abd pain, n/v. Denies any changes in ostomy output, no blood. Denies dysuria, hematuria or changes in urinary frequency. Denies cp, sob, cough, fevers/chills. Per ER provider there was concern for facial droop by EMS, this was not visualized by ER physician evaluation. CT head/CTA head and neck no acute abnormalities. - Past Medical History Cardiovascular: reports: Hypertension Respiratory: reports: None Neuro: reports: None Endocrine/Autoimmune: reports: None GI: reports: Diverticulitis TRAFFIC OPERATIONS ENGINEER: reports: None : reports: None HEENT: reports: None Psych: reports: None Musculoskeletal: reports: Osteoarthritis, Rheumatoid arthritis, Chronic back pain Derm: reports: None MRSA Hx?: Yes Other Past Medical History: has colostomy - Past Surgical History General: reports: Cholecystectomy, Bowel surgery Ortho: reports: Hip replacement, Knee replacement, Spine surgery, Other /TRAFFIC OPERATIONS ENGINEER: reports: Hysterectomy - CONSULTS | PROCEDURES Procedures: Head CT on admission without acute intracranial pathology. Repeat head CT January 29 with shows an evolving lacunar infarct in the right thalamus. No hemorrhagic conversion. Brain MRI January 26 with a 7 mm subacute infarction involving the right thalamus. CT abdomen and pelvis with a 4 mm stone in the left renal pelvis. Nonobstructing. Interval partial colectomy with colostomy since CT October 2016. Development of a nodular masslike lesion in the right major fissure of 0.7 cm x 2 cm. Remote cholecystectomy and probable remote hysterectomy. She will need a nonemergent CT to evaluate possible pulmonary mass in the right major fissure. Urine culture January 25 with Streptococcus viridans Blood culture January 25 without any growth Echocardiogram January 26 with normal ejection fraction of 55 to 60%. Right ventricle systolic function normal. No valvular heart disease noted. - HOSPITAL COURSE Hospital Course: 77-year-old female who lives alone and was completely independent but declining with cognitive deficits for the last year and presented with acute metabolic encephalopathy on January 25. There were descriptions of left facial droop at the scene before EMS picked her up. No obvious focal deficits in the emergency room and workup for stroke included negative CT of head and CT angiogram. Found to have a UTI and treated for that. The next day left-sided weakness returned. MRI of the head confirmed a right thalamic stroke. She was treated for UTI, started rehab for the stroke. 2 problems during hospitalization include orthostatic syncope and C. difficile diarrhea. Cognitive evaluation by OT scored 2/30. She is now transitioned to short-term rehab to improve mobility, strength, and hopefully regain some cognitive function. Plan of Treatment: Short-term physical rehab to then transition to long-term care under the guidance of her daughter and DPOA. Daughter will be establishing guardianship. Treatment for C. difficile colitis in February 11. 21 days of Plavix will end February 15. Decision should be made whether to continue Plavix and discontinue aspirin. Or continue aspirin and discontinue Plavix. Because of the orthostatic hypotension, her antihypertensives that she was on before admission were discontinued. This consisted of amlodipine. Blood pressure should be monitored on a regular basis to make sure she does not need resumption of her medication She should have interval follow-up of the abnormal CT of chest after discussion with primary care provider and daughter Care Goals: To regain cognitive function to the best of her ability. She is discharged in stable condition. Greater than 30 minutes was spent coordinating discharge. On examination she had a slight left facial droop. Disoriented to situation and time. I had to remind her that she had a stroke and she is always disappointed when she hears that. Slight left body weakness. Lungs are clear, regular rate and rhythm, a benign abdomen. This document was made in part using voice recognition software. While efforts are made to proofread this document, sound alike and grammatical errors may occur. - ALLERGIES Allergies/Adverse Reactions: Allergies Allergy/AdvReac Type Severity Reaction Status Date / Time iodine Allergy Severe Respiratory Verified 09/16/21 13:17 methotrexate Allergy Severe Respiratory Verified 09/16/21 13:17 venom-honey bee Allergy Severe Respiratory Verified 09/16/21 13:17 adhesive tape Allergy Mild Itching Verified 09/16/21 13:17 latex Allergy Rash Verified 09/16/21 13:17 shellfish derived AdvReac Severe "almost Verified 09/16/21 13:17 " - MEDICATIONS Home Medications: Ambulatory Orders Medication Instructions Recorded Confirmed Leflunomide [Arava] 10 mg PO DAILY 08/01/17 01/26/23 Acetaminophen [Tylenol] 1,000 mg PO Q6H PRN tab 02/05/23 Aspirin EC [Ecotrin] 81 mg PO DAILY tab 02/05/23 Atorvastatin [Lipitor] 40 mg PO QPM tab 02/05/23 Clopidogrel [Plavix] 75 mg PO DAILY tab 02/05/23 Diclofenac Sodium 1% Gel [Voltaren 2 gm TOP QID each 02/05/23 Gel] Multivitamin W/Minerals [Theragran 1 tab PO DAILYWM tab 02/05/23 M] Pantoprazole [Protonix] 40 mg PO QDAC tab 02/05/23 Vancomycin [Vancocin] 125 mg PO QID cap 02/05/23 - LABS Result Diagrams: 02/03/23 06:10 02/05/23 05:03
== END 2023-02-05 11:45 | DRG 65 ==
LOC: EDBD → ED 12:37 → MS2 21:55 → OBSVTOIN 01-26 16:40
PROVIDERS: ADMIT Student in an Organized Health Care Education/Training Program; ATTEND Specialist
DX: I63.81 Other cerebral infarction due to occlusion or stenosis of small artery (principal); R91.1 Solitary pulmonary nodule; N20.0 Calculus of kidney; A04.72 Enterocolitis due to Clostridium difficile, not specified as recurrent; E87.21 Acute metabolic acidosis; N39.0 Urinary tract infection, site not specified; R29.810 Facial weakness; G93.41 Metabolic encephalopathy; I10 Essential (primary) hypertension; Z87.891 Personal history of nicotine dependence; I95.1 Orthostatic hypotension; R41.0 Disorientation, unspecified; F03.C0 Unspecified dementia, severe, without behavioral disturbance, psychotic disturbance, mood disturbance, and anxiety; B95.4 Other streptococcus as the cause of diseases classified elsewhere; M06.9 Rheumatoid arthritis, unspecified; Z90.49 Acquired absence of other specified parts of digestive tract; Z93.3 Colostomy status; G83.24 Monoplegia of upper limb affecting left nondominant side; R41.89 Other symptoms and signs involving cognitive functions and awareness
CPT/HCPCS: 36415; 51701; 70450; 70496; 70498; 70553; 74176; 80048; 80053; 80061; 81001; 82140; 83605; 83690; 83735; 84100; 85025; 85610; 87040; 87086; 87493; 93005; 93306; 96365; 96372; 96375; 96376; 97116; 97162; 97164; 97166; 97530; 97535; 99285; A9270; A9575; G0378; J1650; J8499; Q9967; 81003; 83721

== ENCOUNTER 2023-03-08 08:00 | Outpatient (CLI) | payer MEDICARE, OTHER ==
[2023-03-08 07:19] LABS: ALBUMIN 3.5 g/dL (3.2-5.5); ALKALINE PHOSPHATASE 498 IU/L (42-121); ALT ALANINE AMINOTRANSFERASE 132 IU/L (10-60); AST ASPARTATE AMINOTRANSFERASE 84 IU/L (10-42); BILIRUBIN,TOTAL 0.8 mg/dL (0.2-1.0); BUN - BLOOD UREA NITROGEN 15 mg/dL (6-20); CALCIUM 9.4 mg/dL (8.5-10.3); CARBON DIOXIDE - CO2 28 mmol/L (21-32); CHLORIDE 104 mmol/L (101-111); CHOLESTEROL 111 mg/dL; CREATININE 0.7 mg/dL (0.6-1.3); GFR - MDRD 81 (>89); GLUCOSE 89 mg/dL (74-104); HDL CHOLESTEROL 55 mg/dL; LDL CHOLESTEROL,CALCULATED 41 mg/dL; LDL/HDL RATIO 0.7 (<4.4); POTASSIUM 4.1 mmol/L (3.5-4.5); SODIUM 137 mmol/L (135-145); TOTAL PROTEIN 7.1 g/dL (6.4-8.9); TRIGLYCERIDES 75 mg/dL (48-352); VLDL CHOLESTEROL 15 mg/dL
[2023-03-08 07:32] LABS: THYROID STIMULATING HORMONE 5.06 uIU/mL (0.34-5.60)
== END 2023-03-08 23:59 | disposition home or self-care (01) ==
LOC: LAB.R 08:00
PROVIDERS: ATTEND Registered Nurse
DX: K57.90 Diverticulosis of intestine, part unspecified, without perforation or abscess without bleeding (principal); E78.5 Hyperlipidemia, unspecified; M15.9 Polyosteoarthritis, unspecified; I95.1 Orthostatic hypotension
CPT/HCPCS: 80053; 80061; 82306; 83721; 84436; 84443

== ENCOUNTER 2023-03-19 08:00 | Outpatient (CLI) | payer MEDICARE, OTHER ==
[2023-03-19 18:58] LABS: BILIRUBIN,URINE NEGATIVE (NEGATIVE); GLUCOSE, URINE (UA) NEGATIVE (NEGATIVE); KETONES,URINE (UA) NEGATIVE (NEGATIVE); LEUKOCYTE ESTERASE, URINE SMALL (NEGATIVE); NITRITE,URINE NEGATIVE (NEGATIVE); OCCULT BLOOD,URINE LARGE (NEGATIVE); PROTEIN,URINE NEGATIVE (NEGATIVE); UROBILINOGEN,URINE 0.2 (NORMAL) E.U./dL (NORMAL)
[2023-03-19 19:01] LABS: BASOPHILS # (AUTO) 0.1 10^3/uL (0.0-0.1); BASOPHILS % (AUTO) 0.6 %; CLARITY,URINE HAZY (CLEAR); EOSINOPHILS % (AUTO) 0.2 %; HGB - HEMOGLOBIN 12.1 g/dL (12.0-16.0); LYMPHOCYTES # (AUTO) 1.4 10^3/uL (1.5-3.5); LYMPHOCYTES % (AUTO) 12.8 %; MEAN CORPUSCULAR HEMOGLOBIN 28.8 pg (27.0-31.0); MEAN CORPUSCULAR HGB CONC 32.7 g/dL (32.0-36.0); MEAN CORPUSCULAR VOLUME 88.1 fL (81.0-99.0); MEAN PLATELET VOLUME 9.6 fL (7.9-10.8); MONOCYTES # (AUTO) 0.8 10^3/uL (0.0-1.0); MONOCYTES % (AUTO) 7.8 %; NEUTROPHILS # (AUTO) 8.4 10^3/uL (1.5-6.6); NEUTROPHILS % (AUTO) 78.1 %; PLT - PLATELET COUNT 329 10^3/uL (130-450); RED CELL DISTRIBUTION WIDTH 14.8 % (12.0-15.0); WHITE BLOOD COUNT 10.8 x10^3/uL (4.8-10.8)
[2023-03-19 19:12] LABS: ALBUMIN 3.6 g/dL (3.2-5.5)
[2023-03-19 19:14] LABS: BILIRUBIN,TOTAL 0.6 mg/dL (0.2-1.0); CALCIUM 9.1 mg/dL (8.5-10.3); CREATININE 0.8 mg/dL (0.6-1.3); POTASSIUM 4.4 mmol/L (3.5-4.5); TOTAL PROTEIN 7.1 g/dL (6.4-8.9)
[2023-03-19 20:21] LABS: AMORPHOUS SEDIMENT,UR Rare /LPF; BACTERIA,URINE Moderate /HPF (None Seen); SQUAMOUS EPITHELIAL CELL,UR NONE SEEN (<= Few)
== END 2023-03-19 23:59 | disposition home or self-care (01) ==
LOC: LAB.R 08:00
PROVIDERS: ATTEND Registered Nurse
DX: I10 Essential (primary) hypertension (principal); M15.9 Polyosteoarthritis, unspecified; I48.20 Chronic atrial fibrillation, unspecified; N39.0 Urinary tract infection, site not specified
CPT/HCPCS: 80053; 81001; 85025; 87086

== ENCOUNTER 2023-03-26 07:53 | Outpatient (CLI) | payer MEDICARE, OTHER ==
[2023-03-26 08:19] LABS: ALBUMIN 3.4 g/dL (3.2-5.5); ALBUMIN/GLOBULIN RATIO 1.1 (1.0-2.2); ALKALINE PHOSPHATASE 220 IU/L (42-121); ALT ALANINE AMINOTRANSFERASE 59 IU/L (10-60); AST ASPARTATE AMINOTRANSFERASE 36 IU/L (10-42); BILIRUBIN,TOTAL 0.5 mg/dL (0.2-1.0); BUN - BLOOD UREA NITROGEN 17 mg/dL (6-20); CARBON DIOXIDE - CO2 25 mmol/L (21-32); CHLORIDE 108 mmol/L (101-111); CHOL/HDL RATIO 1.9 (<4.4); CHOLESTEROL 109 mg/dL; CREATININE 0.6 mg/dL (0.6-1.3); GFR - MDRD 96 (>89); GLUCOSE 88 mg/dL (74-104); HDL CHOLESTEROL 56 mg/dL; LDL CHOLESTEROL,CALCULATED 35 mg/dL; LDL/HDL RATIO 0.6 (<4.4); POTASSIUM 3.8 mmol/L (3.5-4.5); SODIUM 140 mmol/L (135-145); TOTAL PROTEIN 6.6 g/dL (6.4-8.9); TRIGLYCERIDES 88 mg/dL (48-352); VLDL CHOLESTEROL 18 mg/dL
== END 2023-03-26 07:54 | disposition home or self-care (01) ==
LOC: LAB.R 07:53
PROVIDERS: ATTEND Registered Nurse
DX: I10 Essential (primary) hypertension (principal); E03.9 Hypothyroidism, unspecified; D51.9 Vitamin B12 deficiency anemia, unspecified; E55.9 Vitamin D deficiency, unspecified; D52.9 Folate deficiency anemia, unspecified; E78.5 Hyperlipidemia, unspecified
CPT/HCPCS: 80053; 80061; 82306; 82607; 82746; 83721; 84439; 84443

== ENCOUNTER 2023-08-10 01:55 | Outpatient (CLI) | payer MEDICARE, OTHER | END 2023-08-10 23:59 | disposition EMS.NT | LOC: EMS 01:55 | DX: Z03.89 Encounter for observation for other suspected diseases and conditions ruled out (principal) ==

== ENCOUNTER 2023-08-10 13:26 | Outpatient (CLI) | payer MEDICARE, OTHER | END 2023-08-10 23:59 | disposition critical access hospital (66) | LOC: EMS 13:26 | PROVIDERS: ATTEND Emergency Medicine | DX: R53.1 Weakness (principal); R29.6 Repeated falls; R63.4 Abnormal weight loss | CPT/HCPCS: A0425; A0429 ==

== ENCOUNTER 2023-08-10 14:05 | Emergency (ER) | payer MEDICARE, OTHER ==
--- NOTE | 2023-08-10 14:23 | ED Physician Documentation ---
History of Present Illness - Stated complaint Stated Complaint: FTT - Chief complaint Chief Complaint: General - History obtained from History obtained from: Patient, EMS - History of Present Illness Timing: Chronic Pain level max: 0 Pain level now: 0 - Additonal information Additional information: 77-year-old female brought in by EMS because she has had several falls over the past few days. None caused any injuries. She lives alone. She reportedly had been assisting living facility and did not want to be there anymore so left and came home to live alone. EMS reports that this is the third time in the past 2 days they have been called out to her home for a fall. Patient states that she has no injuries. She feels weak. Decided to come in to be "evaluated". Has no complaints. No cough. No congestion, no dysuria or urinary frequency. No head injuries. No headaches. No neck or back pain. 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 : None HEENT: None Psych: None Musculoskeletal: Osteoarthritis, Rheumatoid arthritis, Chronic back pain Derm: None - Past Surgical History Past Surgical History: Yes General: Cholecystectomy, Bowel surgery Ortho: Hip replacement, Knee replacement, Spine surgery, Other /BULL FLOAT FINISHER: Hysterectomy - Present Medications Home Medications: Ambulatory Orders Medication Instructions Recorded Confirmed Leflunomide [Arava] 10 mg PO DAILY 08/01/17 01/26/23 Acetaminophen [Tylenol] 1,000 mg PO Q6H PRN tab 02/05/23 Aspirin EC [Ecotrin] 81 mg PO DAILY tab 02/05/23 Atorvastatin [Lipitor] 40 mg PO QPM tab 02/05/23 Clopidogrel [Plavix] 75 mg PO DAILY tab 02/05/23 Diclofenac Sodium 1% Gel [Voltaren 2 gm TOP QID each 02/05/23 Gel] Multivitamin W/Minerals [Theragran 1 tab PO DAILYWM tab 02/05/23 M] Pantoprazole [Protonix] 40 mg PO QDAC tab 02/05/23 Vancomycin [Vancocin] 125 mg PO QID cap 02/05/23 - Allergies Allergies/Adverse Reactions: Allergies Allergy/AdvReac Type Severity Reaction Status Date / Time iodine Allergy Severe Respiratory Verified 08/10/23 14:26 methotrexate Allergy Severe Respiratory Verified 08/10/23 14:26 venom-honey bee Allergy Severe Respiratory Verified 08/10/23 14:26 adhesive tape Allergy Mild Itching Verified 08/10/23 14:26 latex Allergy Rash Verified 08/10/23 14:26 shellfish derived AdvReac Severe "almost Verified 08/10/23 14:26 " - Social History Does the pt smoke?: No Smoking Status: Former smoker Does the pt drink ETOH?: Yes Does the pt have substance abuse?: No - Immunizations Immunizations are current?: Yes - POLST Patient has POLST: No PD ED PE NORMAL - Vitals Vital signs reviewed: Yes - General General: Alert and oriented X 3, No acute distress - HEENT HEENT: PERRL, Moist mucous membranes - Neck Neck: Supple, no meningeal sign - Cardiac Cardiac: RRR, Strong equal pulses - Respiratory Respiratory: No respiratory distress, Clear bilaterally - Abdomen Abdomen: Soft, Non tender, Non distended - Back Back: No spinal TTP - Derm Derm: Warm and dry - Extremities Extremities: No deformity, No edema, No calf tenderness / cord - Neuro Neuro: Alert and oriented X 3, rehab care assistant 2-12 intact, No motor deficit, No sensory deficit, Normal speech Eye Opening: Spontaneous Motor: Obeys Commands Verbal: Oriented GCS Score: 15 - Psych Psych: Normal mood, Normal affect Results - Vitals Vitals: Vital Signs - 24 hr 08/10/23 08/10/23 08/10/23 14:22 16:26 17:56 Temperature 36.2 C L 36.5 C Heart Rate 58 L 67 67 Respiratory 18 19 19 Rate Blood Pressure 172/76 H 178/66 H 178/66 H O2 Saturation 99 99 99 Oxygen O2 Source Room air - Labs Labs: Laboratory Tests 08/10/23 08/10/23 14:23 14:23 WBC 7.3 RBC 4.54 Hgb 13.0 Hct 41.5 MCV 91.4 MCH 28.6 MCHC 31.3 L RDW 14.6 Plt Count 235 MPV 9.4 Neut # (Auto) 4.0 Lymph # (Auto) 2.1 [place] # (Auto) 0.9 Eos # (Auto) 0.3 Baso # (Auto) 0.0 Absolute Nucleated RBC 0.00 Nucleated RBC % 0.0 Sodium 138 Potassium 3.9 Chloride 104 Carbon Dioxide 27 Anion Gap 7.0 BUN 13 Creatinine 0.8 Estimated GFR (MDRD) 69 L Glucose 89 Calcium 9.9 Magnesium 1.8 Total Bilirubin 1.0 AST 56 H ALT 43 Alkaline Phosphatase 125 H Total Protein 7.2 Albumin 4.0 Globulin 3.2 Albumin/Globulin Ratio 1.3 Lipase 27 TSH 3.66 Salicylates < 1.5 Acetaminophen 0.3 Ethyl Alcohol < 10.0 PD Medical Decision Making - ED course Complexity details: reviewed results, re-evaluated patient, considered differential, d/w patient ED course: 77-year-old female presents to the emergency department with no complaints today. Apparently she has been feeling weak, but she says this is not new. The patient's daughter called from [place] stating that the patient had been in an assisted living facility but "signed herself out AMA" a few months ago. They have been fighting with her trying to get her back into assisted living. Social work consulted. No significant lab abnormalities. Ambulating without difficulty in the emergency department. We did give her a walker as well. Spoke at length with her daughter. Her nephew will come and pick her up. No emergency medical condition at this time. This document was made in part using voice recognition software. While efforts are made to proofread this document, sound alike and grammatical errors may occur. Departure - Departure Disposition: 01 Home, Self Care Clinical Impression: Fall Qualifiers: Encounter type: initial encounter Qualified Code(s): W19.XXXA - Unspecified fall, initial encounter Condition: Good Instructions: ED Mechanical Fall Follow-Up: your,doctor in 1 week [Other] Comments: Your laboratory testing does not show any acute abnormalities today. You need to continue to take your medications as prescribed and work with your caregivers and physical therapy at home to help keep you safe at home. Forms: PCP List Discharge Date/Time: 08/10/23 17:57
[2023-08-10 14:26] VITALS: O2SAT 99
[2023-08-10 14:28] LABS: BASOPHILS % (AUTO) 0.5 %; EOSINOPHILS # (AUTO) 0.3 10^3/uL (0.0-0.7); EOSINOPHILS % (AUTO) 4.1 %; HCT - HEMATOCRIT 41.5 % (37.0-47.0); LYMPHOCYTES # (AUTO) 2.1 10^3/uL (1.5-3.5); LYMPHOCYTES % (AUTO) 29.2 %; MEAN CORPUSCULAR HEMOGLOBIN 28.6 pg (27.0-31.0); MEAN CORPUSCULAR HGB CONC 31.3 g/dL (32.0-36.0); MEAN CORPUSCULAR VOLUME 91.4 fL (81.0-99.0); MEAN PLATELET VOLUME 9.4 fL (7.9-10.8); MONOCYTES # (AUTO) 0.9 10^3/uL (0.0-1.0); MONOCYTES % (AUTO) 11.8 %; NEUTROPHILS % (AUTO) 54.1 %; PLT - PLATELET COUNT 235 10^3/uL (130-450); RED BLOOD COUNT 4.54 10^6/uL (4.20-5.40); RED CELL DISTRIBUTION WIDTH 14.6 % (12.0-15.0); WHITE BLOOD COUNT 7.3 x10^3/uL (4.8-10.8)
[2023-08-10 14:44] LABS: ACETAMINOPHEN 0.3 ug/mL; ALBUMIN/GLOBULIN RATIO 1.3 (1.0-2.2); ALKALINE PHOSPHATASE 125 IU/L (42-121); ALT ALANINE AMINOTRANSFERASE 43 IU/L (10-60); AST ASPARTATE AMINOTRANSFERASE 56 IU/L (10-42); BUN - BLOOD UREA NITROGEN 13 mg/dL (6-20); CALCIUM 9.9 mg/dL (8.5-10.3); CARBON DIOXIDE - CO2 27 mmol/L (21-32); CHLORIDE 104 mmol/L (101-111); CREATININE 0.8 mg/dL (0.6-1.3); ETOH - ETHANOL < 10.0 mg/dL; GFR - MDRD 69 (>89); GLUCOSE 89 mg/dL (74-104); LIPASE 27 U/L (11-82); MAGNESIUM 1.8 mg/dL (1.7-2.3); POTASSIUM 3.9 mmol/L (3.5-4.5); SODIUM 138 mmol/L (135-145); TOTAL PROTEIN 7.2 g/dL (6.4-8.9)
[2023-08-10 14:45] LABS: SALICYLATE < 1.5 mg/dL
[2023-08-10 14:59] LABS: THYROID STIMULATING HORMONE 3.66 uIU/mL (0.34-5.60)
[2023-08-10 16:48] VITALS: BP 178/66
== END 2023-08-10 17:57 | disposition home or self-care (01) ==
LOC: EDUNIT# → ED 14:05
DX: Z04.3 Encounter for examination and observation following other accident (principal); W19.XXXA Unspecified fall, initial encounter; Z91.81 History of falling; Y92.009 Unspecified place in unspecified non-institutional (private) residence as the place of occurrence of the external cause; Z87.891 Personal history of nicotine dependence
CPT/HCPCS: 36415; 80053; 80143; 83690; 83735; 84443; 85025; 99283; 99284; G0480; 80179; 82077

== ENCOUNTER 2023-09-20 16:26 | Outpatient (CLI) | payer MEDICARE, OTHER | END 2023-09-20 23:59 | disposition critical access hospital (66) | LOC: EMS 16:26 | DX: S00.11XA Contusion of right eyelid and periocular area, initial encounter (principal); M25.551 Pain in right hip; W01.0XXA Fall on same level from slipping, tripping and stumbling without subsequent striking against object, initial encounter; Y92.009 Unspecified place in unspecified non-institutional (private) residence as the place of occurrence of the external cause; R42 Dizziness and giddiness | CPT/HCPCS: A0425; A0429 ==

== ENCOUNTER 2023-09-20 17:04 | Emergency (ER) | payer MEDICARE, OTHER ==
--- NOTE | 2023-09-20 17:20 | ED Physician Documentation ---
PD HPI Fall - Stated complaint Stated Complaint: GLF/R HIP PX - History obtained from History obtained from: Patient, EMS - Additional information Additional information: Has hx RA and R hip replacement. 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 : None HEENT: None Psych: None Musculoskeletal: Osteoarthritis, Rheumatoid arthritis, Chronic back pain Derm: None - Past Surgical History Past Surgical History: Yes General: Cholecystectomy, Bowel surgery Ortho: Hip replacement, Knee replacement, Spine surgery, Other /ARCADE GAMES MECHANIC: Hysterectomy - Present Medications Home Medications: Ambulatory Orders Medication Instructions Recorded Confirmed Leflunomide [Arava] 10 mg PO DAILY 08/01/17 01/26/23 Acetaminophen [Tylenol] 1,000 mg PO Q6H PRN tab 02/05/23 Aspirin EC [Ecotrin] 81 mg PO DAILY tab 02/05/23 Atorvastatin [Lipitor] 40 mg PO QPM tab 02/05/23 Clopidogrel [Plavix] 75 mg PO DAILY tab 02/05/23 Diclofenac Sodium 1% Gel [Voltaren 2 gm TOP QID each 02/05/23 Gel] Multivitamin W/Minerals [Theragran 1 tab PO DAILYWM tab 02/05/23 M] Pantoprazole [Protonix] 40 mg PO QDAC tab 02/05/23 Vancomycin [Vancocin] 125 mg PO QID cap 02/05/23 - Allergies Allergies/Adverse Reactions: Allergies Allergy/AdvReac Type Severity Reaction Status Date / Time iodine Allergy Severe Respiratory Verified 09/20/23 17:20 methotrexate Allergy Severe Respiratory Verified 09/20/23 17:20 venom-honey bee Allergy Severe Respiratory Verified 09/20/23 17:20 adhesive tape Allergy Mild Itching Verified 09/20/23 17:20 latex Allergy Rash Verified 09/20/23 17:20 shellfish derived AdvReac Severe "almost Verified 09/20/23 17:20 " - Social History Does the pt smoke?: No Smoking Status: Former smoker Does the pt drink ETOH?: Yes Does the pt have substance abuse?: No - Immunizations Immunizations are current?: Yes - POLST Patient has POLST: No PD ED PE NORMAL - Vitals Vital signs reviewed: Yes - General General: Alert and oriented X 3, No acute distress - HEENT HEENT: PERRL, EOMI, Other (R faceial contusion with mild ttp lateral right inferior orbit.) - Neck Neck: Supple, no meningeal sign, No bony TTP - Cardiac Cardiac: RRR, No murmur - Respiratory Respiratory: No respiratory distress, Clear bilaterally - Abdomen Abdomen: Non tender - Extremities Extremities: Other (TTP R 4th finger PIP. R hip NTTP, painless int/ext rotation.) - Neuro Neuro: Alert and oriented X 3, No motor deficit, No sensory deficit, Normal speech Eye Opening: Spontaneous Motor: Obeys Commands Verbal: Oriented GCS Score: 15 Results - Vitals Vitals: Vital Signs - 24 hr 09/20/23 09/20/23 09/20/23 17:14 19:36 20:47 Temperature 38 C H 36.7 C Heart Rate 63 61 71 Respiratory 16 14 16 Rate Blood Pressure 189/91 H 185/88 H 161/99 H O2 Saturation 98 96 97 Oxygen O2 Source Room air - Rads (name of study) CT head, face, cervical spine were negative for traumatic findings. 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 Relevant Findings:: Final report received, EMP independent interpretation of test Right hand x-ray: Dislocation of the right second MCP. I think she has a chip fracture at the fourth PIP. Relevant Findings:: Final report received, EMP independent interpretation of test PD Medical Decision Making - ED course ED course: She presents after a fall, she has hand pain. I think she is fractured at the right fourth PIP. And this was ines taped. 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 I attempted reduction without success. She also has a femoral neck fracture but it is stabilized by her prosthetic. I did review the images with Dr Yung who agrees that she can be weightbearing and follow-up in clinic. Had long discussion with daughter who is in [place], [place]. She had been in SNF then [facility], but left AMA? Daughter has significant questions about patient's competence to manage her own affairs. Daughter has POA but not guardianship. I encouraged her to hire an eldercare assistant attorney general and she tells me she already has. Patient was unable to ambulate significantly to improve safety and going home and is amenable to staying here overnight for social work evaluation. 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 Care to Dr Ochoa at 10p shift change. Departure - Departure Clinical Impression: Fall Femoral neck fracture Qualifiers: Encounter type: initial encounter Fracture type: closed Laterality: right Qualified Code(s): S72.001A - Fracture of unspecified part of neck of right femur, initial encounter for closed fracture Finger fracture, right Qualifiers: Encounter type: initial encounter Finger: ring finger Fracture type: closed Phalanx: proximal Fracture alignment: nondisplaced Qualified Code(s): S62.644A - Nondisplaced fracture of proximal phalanx of right ring finger, initial encoun ter for closed fracture Condition: Stable Instructions: ED Fx Lower Ext Follow-Up: [facility] [Provider Group] - Within 1 week Comments: Follow-up with your primary care physician with consideration for Mini-Mental status exam and any other dementia evaluation they think is appropriate.
--- NOTE | 2023-09-20 18:22 | CT Report ---
PROCEDURE: Cervical Spine WO INDICATIONS: head/face inj TECHNIQUE: Noncontrast 3 mm thick sections acquired from the skull base to the T4 level. Sagittal and coronal r eformats were then constructed. For radiation dose reduction, the following was used: automated exp osure control, adjustment of mA and/or kV according to patient size. COMPARISON: Correlation is made with the accompanying imaging. Correlation is also made with prior C T angiogram, 01/25/2023 FINDINGS: Image quality: Excellent. Bones: No fractures or dislocations. Visualized superior ribs are intact. Generalized degenerative changes are seen, including moderate to severe disc space narrowing at C3-C4 , C4-C5, C5-C6, and C6-C7. Posterior directed endplate osteophytes can be seen at several levels. Sev eral levels of facet hypertrophy can be seen. Soft tissues: Prevertebral soft tissues are normal in thickness. No paravertebral hematomas. No ap ical pneumothoraces. IMPRESSION: Negative for cervical spine fracture. Multiple levels of significant cervical spine degenerative change can be seen. Reviewed by: Addy Crystal MD on 09/20/2023 5:20 PM BRIGHT Approved by: Addy Crystal MD on 09/20/2023 5:20 PM AKNI Station ID: [id number]
--- NOTE | 2023-09-20 18:23 | CT Report ---
PROCEDURE: Maxillofacial WO INDICATIONS: head/face inj TECHNIQUE: Noncontrast 1.5 mm thick axial images acquired from the mandible through the frontal sinuses, with co stefan and sagittal reformatting. For radiation dose reduction, the following was used: automated ex posure control, adjustment of mA and/or kV according to patient size. COMPARISON: Correlation is made with the accompanying imaging. FINDINGS: Image quality: Excellent. Bones and teeth: Orbital haney are intact. Sinus haney show no fracture or deformity. Nasal bones and septum are intact. There is chronic moderate leftward nasal septal deviation. Visualized portion s of the mandible demonstrate no fractures or subluxation. Zygomatic arches are intact. Pterygoid p lates are intact. Visualized portions of the skull base and auditory canals are intact. Sinuses: Paranasal sinuses are aerated, without fluid levels, mucosal thickening, or mucoceles. Mas toid air cells are aerated. The ostiomeatal complexes are patent, yet they are constitutionally narr owed, with bilateral Emmie cells. Soft tissues: There is soft tissue swelling seen of the right cheek, as on series 2 image 99. Vascular: Visualized vascular structures appear normal in the absence of contrast. Bony vascular fo ramina and canals are intact. IMPRESSION: Negative for displaced facial bone fracture. There is soft tissue swelling seen involving the right cheek. Reviewed by: Addy Crystal MD on 09/20/2023 5:22 PM BRIGHT Approved by: Addy Crystal MD on 09/20/2023 5:22 PM AKNI Station ID: [id number]
--- NOTE | 2023-09-20 18:25 | CT Report ---
PROCEDURE: Head WO INDICATIONS: head/face inj TECHNIQUE: Noncontrast 4.5 mm thick angled axial sections acquired from the foramen magnum to the vertex. For r adiation dose reduction, the following was used: automated exposure control, adjustment of mA and/or kV according to patient size. COMPARISON: 01/21/2023, 01/30/2023, 01/25/2023 FINDINGS: Image quality: Excellent. CSF spaces: Basal cisterns are patent. No extra-axial fluid collections. Ventricles are normal in size and shape. Brain: No midline shift. No intracranial masses or hemorrhage. Maldonado-white matter interface is norm al. Age-appropriate brain parenchymal volume loss and chronic small vessel ischemic change can be see n. There is a remote right thalamus lacunar infarct. Skull and face: Calvarium and visualized facial bones are intact, without suspicious lesions. Sinuses: Visualized sinuses and mastoids are clear. IMPRESSION: No intracranial hemorrhage is seen. No significant intracranial abnormality is seen. Stable intracranial findings, including a lacunar infarct within the right thalamus. Reviewed by: Addy Crystal MD on 09/20/2023 5:23 PM BRIGHT Approved by: Addy Crystal MD on 09/20/2023 5:23 PM BRIGHT Station ID: [id number]
--- NOTE | 2023-09-20 18:29 | CT Report ---
PROCEDURE: Pelvis WO INDICATIONS: r hip inj TECHNIQUE: Noncontrast 3 mm axial sections acquired through the bony pelvis, with coronal and sagittal reformatt ing. For radiation dose reduction, the following was used: automated exposure control, adjustment of mA and/or kV according to patient size. COMPARISON: 10/07/2016. Correlation is made with the accompanying imaging. FINDINGS: Image quality: There is artifact associated with the metallic hardware. Bones: There are faintly seen fracture lines along the lateral aspect of the right femoral neck, as on series 14 image 54. Right hip arthroplasty hardware is seen, with associated streak artifact. The hardware itself appears intact. No prosthetic hip dislocation can be seen. The fractures of the bones of the pelvis can be seen. No fractures of the left proximal femur can be seen. There is also lower lumbar spine postoperative hardware. Soft tissues: There is a left lower quadrant colostomy. Distal colonic diverticulosis is seen, witho ut erika findings of active diverticulitis. No dilated loops of small bowel are seen. This patient is status post hysterectomy. No adnexal masses can be seen. No focal bladder wall thickening is seen. A therosclerotic calcification is seen. IMPRESSION: Faintly seen fracture lines along the lateral aspect of the right femoral neck. There is a right hip prosthesis seen, with significant artifact, which limits evaluation. No fractures of the bones of the pelvis can be seen. No dislocation. Additional findings: Lower lumbar spine postoperative hardware Left lower quadrant colostomy Diverticulosis, without findings of active diverticulitis. Hysterectomy Reviewed by: Addy Crystal MD on 09/20/2023 5:28 PM AKDT Approved by: Addy Crystal MD on 09/20/2023 5:28 PM AKDT Station ID: [id number]
--- NOTE | 2023-09-20 18:45 | XRAY Report ---
PROCEDURE: Hand 3+V RT INDICATIONS: hand inj TECHNIQUE: 3 views of the hand(s) acquired. COMPARISON: None. FINDINGS: Bones: Dense of postsurgical changes including fusion hardware across the second and third carpometa carpal joint. And surgical anchors at the base of the first CMC. There is dislocation of the second M CP joint. Chronic appearing deformity of the distal ulnar/styloid tip. No definite acute fracture. Soft tissues: No suspicious soft tissue calcifications or masses. IMPRESSION: Second MCP joint dislocation. Extensive postsurgical changes of the rest involving the first, second and third metacarpals. No definite acute fracture identified. Reviewed by: Kathy Woods MD, PhD on 09/20/2023 6:44 PM PDT Approved by: Kathy Woods MD, PhD on 09/20/2023 6:44 PM PDT Station ID: [id number]
[2023-09-20] MEDS ORDERED: ONDANSETRON 4 MG/2 ML VIAL IVP PRN (20:22)
[2023-09-20] MEDS: ATORVASTATIN 40 MG TABLET PO SCH (20:44)
[2023-09-20] MEDS: ACETAMINOPHEN 500 MG TABLET PO PRN (20:44)
--- NOTE | 2023-09-21 01:30 | ED Physician Documentation ---
ED Addendum - Addendum Addendum: 09/21/23 01:28 I assumed care on change of shift. Patient has been comfortable. She did recently request through the nursing some medication to help with sleep. She states she does not normally use any sleep medication but the circumstances of the hospital and noise etc. was having her trouble sleeping. She denied pain is an issue for keeping her awake. I believe though some regular Tylenol 4 times daily will be useful given her injury. At this point I would go with a low-dose medication to help with sleep that seems to be more situational due to the surroundings and noise. I prescribed trazodone 25 mg p.o. She does not seem to have any allergy and medications of that category.
[2023-09-21] MEDS: traZODone 50 MG TABLET PO STA (01:45)
[2023-09-21] MEDS: ACETAMINOPHEN 325 MG TABLET PO STA (01:45)
[2023-09-21] MEDS: ACETAMINOPHEN 325 MG TABLET PO SCH (11:27)
[2023-09-21] MEDS: ENOXAPARIN 40 MG/0.4 ML SYRINGE SUBQ SCH (11:27)
[2023-09-21] MEDS: CLOPIDOGREL 75 MG TABLET PO SCH (11:28)
[2023-09-21] MEDS: PANTOPRAZOLE 40 MG TABLET PO SCH (11:28)
--- NOTE | 2023-09-21 11:57 | ED Physician Documentation ---
ED Addendum - Addendum Addendum: 09/21/23 11:57 Patient is accepted to [facility]. Patient will be transferred there for further care. She will have orders written on Saturday by her primary care provider, bridging orders will be written until then. Departure - Departure Disposition: DC/Xfer Clinical Impression: Femoral neck fracture Qualifiers: Encounter type: initial encounter Fracture type: closed Laterality: right Qualified Code(s): S72.001A - Fracture of unspecified part of neck of right femur, initial encounter for closed fracture Fall Qualifiers: Encounter type: initial encounter Qualified Code(s): W19.XXXA - Unspecified fall, initial encounter Finger fracture, right Qualifiers: Encounter type: initial encounter Finger: ring finger Fracture type: closed Phalanx: proximal Fracture alignment: nondisplaced Qualified Code(s): S62.644A - Nondisplaced fracture of proximal phalanx of right ring finger, initial encounter for closed fracture Condition: Stable Instructions: ED Fx Lower Ext Follow-Up: [facility] [Provider Group] - Within 1 week Comments: Follow-up with your primary care physician with consideration for Mini-Mental status exam and any other dementia evaluation they think is appropriate.
[2023-09-21 14:50] VITALS: BP 143/84; O2SAT 98
== END 2023-09-21 15:16 ==
LOC: EDUNIT# → ED 17:04
DX: S72.001A Fracture of unspecified part of neck of right femur, initial encounter for closed fracture (principal); S62.644A Nondisplaced fracture of proximal phalanx of right ring finger, initial encounter for closed fracture; W01.0XXA Fall on same level from slipping, tripping and stumbling without subsequent striking against object, initial encounter; Z96.641 Presence of right artificial hip joint; M06.9 Rheumatoid arthritis, unspecified; I10 Essential (primary) hypertension; Z87.891 Personal history of nicotine dependence; M47.812 Spondylosis without myelopathy or radiculopathy, cervical region; Z86.73 Personal history of transient ischemic attack (TIA), and cerebral infarction without residual deficits
CPT/HCPCS: 70450; 70486; 72125; 72192; 73130; 96372; 99285; A9270; J1650

== ENCOUNTER 2023-09-21 15:10 | Outpatient (CLI) | payer MEDICARE, OTHER | END 2023-09-21 23:59 | LOC: EMS 15:10 | PROVIDERS: ATTEND Emergency Medicine | DX: R41.0 Disorientation, unspecified (principal); S72.001A Fracture of unspecified part of neck of right femur, initial encounter for closed fracture; W19.XXXA Unspecified fall, initial encounter | CPT/HCPCS: A0425; A0428 ==

== ENCOUNTER 2023-09-22 18:49 | Outpatient (CLI) | payer MEDICARE, OTHER | END 2023-09-22 23:59 | disposition critical access hospital (66) | LOC: EMS 18:49 | DX: R41.82 Altered mental status, unspecified (principal); R03.0 Elevated blood-pressure reading, without diagnosis of hypertension | CPT/HCPCS: A0425; A0429 ==

== ENCOUNTER 2023-09-22 18:56 | Emergency (ER) | payer MEDICARE, OTHER ==
--- NOTE | 2023-09-22 19:30 | ED Physician Documentation ---
History of Present Illness - Stated complaint Stated Complaint: HBP - Chief complaint Chief Complaint: Neuro - History obtained from History obtained from: EMS - Additonal information Additional information: The patient comes to the emergency department via EMS for chief complaint of elevated blood pressure" altered mental status". Not much information is available as the patient was picked up from [facility] around shift change, but the patient apparently was sent there after a fall and inability to ambulate. Her daughter had also had concerns about her ability to handle her own affairs at home, and the daughter, who is POA, felt the patient should go to a facility as well. The patient was just seen here in the emergency department for that fall a couple of days ago and discharged to [facility] yesterday. At that time, she was awake and talking though there was some concern for dementia, but the patient was also prescribed trazodone to help with sleep. There is no report of any further falls. The patient is alert but does not really answer any questions other than to say what her name is. PD PAST MEDICAL HISTORY - Past Medical History Past Medical History: Yes Cardiovascular: Hypertension Respiratory: None Neuro: None Endocrine/Autoimmune: None GI: Diverticulitis CORPORATE COMPLIANCE DIRECTOR: None : None HEENT: None Psych: None Musculoskeletal: Osteoarthritis, Rheumatoid arthritis, Chronic back pain Derm: None - Past Surgical History Past Surgical History: Yes General: Cholecystectomy, Bowel surgery Ortho: Hip replacement, Knee replacement, Spine surgery, Other /CORPORATE COMPLIANCE DIRECTOR: Hysterectomy - Present Medications Home Medications: Ambulatory Orders Medication Instructions Recorded Confirmed Leflunomide [Arava] 20 mg PO DAILY 08/01/17 09/24/23 Atorvastatin Calcium 40 mg PO DAILY 09/21/23 09/24/23 Losartan Potassium 25 mg PO DAILY 09/21/23 09/24/23 Pantoprazole Sodium 40 mg PO DAILY 09/21/23 09/24/23 Prednisone [Lauro] 4 mg PO DAILY 09/21/23 09/24/23 Trazodone HCl 25 mg PO HS 09/23/23 09/24/23 - Allergies Allergies/Adverse Reactions: Allergies Allergy/AdvReac Type Severity Reaction Status Date / Time iodine Allergy Severe Respiratory Verified 09/24/23 17:50 methotrexate Allergy Severe Respiratory Verified 09/24/23 17:50 venom-honey bee Allergy Severe Respiratory Verified 09/24/23 17:50 adhesive tape Allergy Mild Itching Verified 09/24/23 17:50 latex Allergy Rash Verified 09/24/23 17:50 shellfish derived AdvReac Severe "almost Verified 09/24/23 17:50 " - Social History Does the pt smoke?: No Smoking Status: Never smoker Does the pt drink ETOH?: Yes Does the pt have substance abuse?: No - Immunizations Immunizations are current?: Yes - POLST Patient has POLST: No PD ED PE NORMAL - Vitals Vital signs reviewed: Yes - General General: No acute distress, Well developed/nourished, Other (Alert, makes eye contact, smiles and recognition at the nurse who had her on her recent ER visit, but otherwise does not verbalize.) - HEENT HEENT: PERRL, EOMI, Moist mucous membranes, Other (Subacute contusion on patient's right periorbital area.) - Neck Neck: Supple, no meningeal sign - Cardiac Cardiac: RRR, No murmur, Strong equal pulses - Respiratory Respiratory: No respiratory distress, Clear bilaterally - Abdomen Abdomen: Soft, Non tender, Non distended - Derm Derm: Normal color, Warm and dry, No rash - Extremities Extremities: No deformity, No edema - Neuro Neuro: Other (Alert, cooperative, but does only verbalize much. No obvious motor or sensory deficits..) - Psych Psych: Normal mood, Normal affect Results - Vitals Vitals: Oxygen O2 Source Room air - Labs Labs: Laboratory Tests 09/22/23 09/22/23 09/22/23 19:20 19:20 21:50 WBC 11.7 H RBC 4.42 Hgb 12.6 Hct 39.8 MCV 90.0 MCH 28.5 MCHC 31.7 L RDW 14.6 Plt Count 186 MPV 9.4 Neut # (Auto) 8.0 H Lymph # (Auto) 2.0 Waldo # (Auto) 1.5 H Eos # (Auto) 0.1 Baso # (Auto) 0.0 Absolute Nucleated RBC 0.00 Nucleated RBC % 0.0 Sodium 133 L Potassium 4.1 Chloride 100 L Carbon Dioxide 26 Anion Gap 7.0 BUN 14 Creatinine 0.6 Estimated GFR (MDRD) 96 Glucose 114 H Calcium 9.6 Total Bilirubin 1.6 H AST 32 ALT 33 Alkaline Phosphatase 92 Total Protein 7.3 Albumin 3.8 Globulin 3.5 Albumin/Globulin Ratio 1.1 Lipase 12 Urine Color YELLOW Urine Clarity CLEAR Urine pH 7.5 Ur Specific [place] 1.015 Urine Protein NEGATIVE Urine Glucose (UA) NEGATIVE Urine Ketones NEGATIVE Urine Occult Blood NEGATIVE Urine Nitrite NEGATIVE Urine Bilirubin NEGATIVE Urine Urobilinogen 0.2 (NORMAL) Ur Leukocyte Esterase NEGATIVE Ur Microscopic Review NOT INDICATED Urine Culture Comments NOT INDICATED PD Medical Decision Making - ED course Complexity details: reviewed old records, reviewed results, re-evaluated patient, considered differential, d/w patient ED course: The patient was evaluated with labs including ER abdominal panel, CBC, and urinalysis. She was given IV fluids. Work-up was unremarkable. The pt just had a CT of the head which was unremarkable, and did not have any focal deficits. I did not feel it would be helpful to repeat the CT at this time. The pt was started on Trazodone yesterday, and I suspect this may be the culprit for the pt's slowness. The pt is stable for d/c home. I have advised her care facility that she should follow up with her PCP to have her medications reviewed. No emergent condition identified at this time. Departure - Departure Disposition: Home, Self Care Clinical Impression: Medication side effect Hypertension Qualifiers: Hypertension type: unspecified Qualified Code(s): I10 - Essential (primary) hypertension Condition: Stable Instructions: ED HTN Established Comments: Brooklyn's labs all look very good, and she just had a CT the other day which did not show any bleeding in the brain or any evidence of a stroke. She does not have any evidence of a stroke now, either. Given that she is newly on trazodone, it is possible that the medications building up too much in her system and is causing her to The less talkative and responsive than she normally would. It is important to work with her primary doctor to make sure that her medication regimen is still appropriate for her and is meeting her needs as best as possible with as few side effects as possible. As far as her blood pressure, her blood pressure was elevated this evening in the emergency department, but is improved now. Brooklyn did not have any signs of hypertensive emergency, which would be evidenced by endorgan stress, but again, her primary doctor should review her medications and trend her blood pressure to see if her medications need to be adjusted. There is no emergent condition related to her blood pressure tonight. Please schedule the next available appointment with her primary. Forms: PCP List Discharge Date/Time: 09/23/23 01:44
[2023-09-22 19:36] LABS: BASOPHILS % (AUTO) 0.3 %; EOSINOPHILS # (AUTO) 0.1 10^3/uL (0.0-0.7); EOSINOPHILS % (AUTO) 1.2 %; HCT - HEMATOCRIT 39.8 % (37.0-47.0); HGB - HEMOGLOBIN 12.6 g/dL (12.0-16.0); LYMPHOCYTES % (AUTO) 16.7 %; MEAN CORPUSCULAR HEMOGLOBIN 28.5 pg (27.0-31.0); MEAN CORPUSCULAR HGB CONC 31.7 g/dL (32.0-36.0); MEAN PLATELET VOLUME 9.4 fL (7.9-10.8); MONOCYTES # (AUTO) 1.5 10^3/uL (0.0-1.0); MONOCYTES % (AUTO) 12.8 %; NEUTROPHILS % (AUTO) 68.7 %; PLT - PLATELET COUNT 186 10^3/uL (130-450); RED BLOOD COUNT 4.42 10^6/uL (4.20-5.40); RED CELL DISTRIBUTION WIDTH 14.6 % (12.0-15.0); WHITE BLOOD COUNT 11.7 x10^3/uL (4.8-10.8)
[2023-09-22] MEDS: SODIUM CHLORIDE 0.9% 1,000 ML IV STA (19:45)
[2023-09-22 19:52] LABS: ALBUMIN 3.8 g/dL (3.2-5.5); ALBUMIN/GLOBULIN RATIO 1.1 (1.0-2.2); BILIRUBIN,TOTAL 1.6 mg/dL (0.2-1.0); CALCIUM 9.6 mg/dL (8.5-10.3); CREATININE 0.6 mg/dL (0.6-1.3); POTASSIUM 4.1 mmol/L (3.5-4.5); TOTAL PROTEIN 7.3 g/dL (6.4-8.9)
[2023-09-22 22:08] LABS: BILIRUBIN,URINE NEGATIVE (NEGATIVE); GLUCOSE, URINE (UA) NEGATIVE (NEGATIVE); KETONES,URINE (UA) NEGATIVE (NEGATIVE); LEUKOCYTE ESTERASE, URINE NEGATIVE (NEGATIVE); NITRITE,URINE NEGATIVE (NEGATIVE); OCCULT BLOOD,URINE NEGATIVE (NEGATIVE); PH,URINE 7.5 PH (5.0-7.5); PROTEIN,URINE NEGATIVE (NEGATIVE); UROBILINOGEN,URINE 0.2 (NORMAL) E.U./dL (NORMAL)
[2023-09-22 22:13] LABS: CLARITY,URINE CLEAR (CLEAR)
[2023-09-22] MEDS: diltiaZEM INJ 5 MG/ML VIAL IVP STA (22:48)
[2023-09-22] MEDS: diltiaZEM CD 120 MG CAPSULE PO STA (22:50)
[2023-09-22 23:18] VITALS: O2SAT 97
[2023-09-23 01:45] VITALS: BP 160/72
== END 2023-09-23 01:44 | disposition home or self-care (01) ==
LOC: EDUNIT# → ED 18:56
DX: I10 Essential (primary) hypertension (principal); T50.905A Adverse effect of unspecified drugs, medicaments and biological substances, initial encounter; Z79.899 Other long term (current) drug therapy; Z91.040 Latex allergy status
CPT/HCPCS: 36415; 80053; 81003; 83690; 85025; 96374; 99283; 99284; A9270; 81001; 87086

== ENCOUNTER 2023-09-23 01:45 | Outpatient (CLI) | payer MEDICARE, OTHER | END 2023-09-23 23:59 | disposition home or self-care (01) | LOC: EMS 01:45 | PROVIDERS: ATTEND Emergency Medicine | DX: S72.001D Fracture of unspecified part of neck of right femur, subsequent encounter for closed fracture with routine healing (principal); F03.90 Unspecified dementia, unspecified severity, without behavioral disturbance, psychotic disturbance, mood disturbance, and anxiety; R41.0 Disorientation, unspecified | CPT/HCPCS: A0425; A0428 ==

== ENCOUNTER 2023-09-24 17:37 | Emergency (ER) | payer MEDICARE, OTHER ==
--- NOTE | 2023-09-24 18:12 | ED Physician Documentation ---
PD HPI ALTERED MENTAL STATUS - Stated complaint Stated Complaint: - Chief complaint Chief Complaint: Neuro PD PAST MEDICAL HISTORY - Past Medical History Cardiovascular: Hypertension Respiratory: None Neuro: None Endocrine/Autoimmune: None GI: Diverticulitis CHIN STRAP SEWER: None : None HEENT: None Psych: None Musculoskeletal: Osteoarthritis, Rheumatoid arthritis, Chronic back pain Derm: None - Past Surgical History Past Surgical History: Yes General: Cholecystectomy, Bowel surgery Ortho: Hip replacement, Knee replacement, Spine surgery, Other /CHIN STRAP SEWER: Hysterectomy - Present Medications Home Medications: Ambulatory Orders Medication Instructions Recorded Confirmed Leflunomide [Arava] 20 mg PO DAILY 08/01/17 09/22/23 Atorvastatin Calcium 40 mg PO DAILY 09/21/23 09/22/23 Losartan Potassium 25 mg PO DAILY 09/21/23 09/22/23 Pantoprazole Sodium 40 mg PO DAILY 09/21/23 09/22/23 Prednisone [Lauro] 4 mg PO DAILY 09/21/23 09/23/23 Trazodone HCl 25 mg PO HS 09/23/23 09/23/23 - Allergies Allergies/Adverse Reactions: Allergies Allergy/AdvReac Type Severity Reaction Status Date / Time iodine Allergy Severe Respiratory Verified 09/24/23 17:50 methotrexate Allergy Severe Respiratory Verified 09/24/23 17:50 venom-honey bee Allergy Severe Respiratory Verified 09/24/23 17:50 adhesive tape Allergy Mild Itching Verified 09/24/23 17:50 latex Allergy Rash Verified 09/24/23 17:50 shellfish derived AdvReac Severe "almost Verified 09/24/23 17:50 " - Social History Does the pt smoke?: No Smoking Status: Never smoker Does the pt drink ETOH?: Yes Does the pt have substance abuse?: No - Immunizations Immunizations are current?: Yes - POLST Patient has POLST: No Results - Vitals Vitals: Vital Signs - 24 hr 09/24/23 17:42 Temperature 37.0 C Heart Rate 83 Respiratory 16 Rate Blood Pressure 138/79 H O2 Saturation 96 Oxygen O2 Source Room air Departure - Departure
[2023-09-24 19:10] LABS: BASOPHILS # (AUTO) 0.1 10^3/uL (0.0-0.1); BASOPHILS % (AUTO) 0.9 %; EOSINOPHILS # (AUTO) 0.2 10^3/uL (0.0-0.7); EOSINOPHILS % (AUTO) 2.1 %; HCT - HEMATOCRIT 40.2 % (37.0-47.0); LYMPHOCYTES # (AUTO) 1.8 10^3/uL (1.5-3.5); LYMPHOCYTES % (AUTO) 22.9 %; MEAN CORPUSCULAR HGB CONC 32.3 g/dL (32.0-36.0); MEAN CORPUSCULAR VOLUME 89.5 fL (81.0-99.0); MEAN PLATELET VOLUME 9.3 fL (7.9-10.8); MONOCYTES # (AUTO) 0.8 10^3/uL (0.0-1.0); MONOCYTES % (AUTO) 10.2 %; NEUTROPHILS # (AUTO) 4.9 10^3/uL (1.5-6.6); NEUTROPHILS % (AUTO) 63.6 %; PLT - PLATELET COUNT 245 10^3/uL (130-450); RED BLOOD COUNT 4.49 10^6/uL (4.20-5.40); RED CELL DISTRIBUTION WIDTH 14.6 % (12.0-15.0); WHITE BLOOD COUNT 7.6 x10^3/uL (4.8-10.8)
[2023-09-24 19:24] LABS: ALBUMIN 3.9 g/dL (3.2-5.5); BILIRUBIN,TOTAL 0.9 mg/dL (0.2-1.0); CALCIUM 9.5 mg/dL (8.5-10.3); CREATININE 0.7 mg/dL (0.6-1.3); MAGNESIUM 1.8 mg/dL (1.7-2.3); POTASSIUM 4.2 mmol/L (3.5-4.5); TOTAL PROTEIN 7.9 g/dL (6.4-8.9)
[2023-09-24] MEDS: DEXAMETHASONE 10 MG/ML VIAL IVP STA (20:39)
[2023-09-24] MEDS: diphenhydrAMINE INJ 50 MG/ML VIAL IVP STA (20:40)
[2023-09-24] MEDS ORDERED: iohexoL-300 100 ML VIAL ONE (20:54)
[2023-09-24 21:39] VITALS: O2SAT 100
[2023-09-24] MEDS: iohexoL-300 100 ML VIAL IVP ONE (21:44)
--- NOTE | 2023-09-24 21:51 | CT Report ---
PROCEDURE: Head WO INDICATIONS: Recent GLF, confusion TECHNIQUE: Noncontrast 4.5 mm thick angled axial sections acquired from the foramen magnum to the vertex. For r adiation dose reduction, the following was used: automated exposure control, adjustment of mA and/or kV according to patient size. COMPARISON: 09/20/2023 FINDINGS: Image quality: Excellent. CSF spaces: Basal cisterns are patent. No extra-axial fluid collections. Ventricles are normal in size and shape. Brain: No midline shift. No intracranial masses or hemorrhage. Maldonado-white matter interface is norm al. Leukoaraiosis, commonly caused by chronic small vessel ischemic disease. Age-related volume loss . Remote lacunar infarcts. Skull and face: Calvarium and visualized facial bones are intact, without suspicious lesions. Sinuses: Visualized sinuses and mastoids are clear. IMPRESSION: No acute intracranial pathology. Reviewed by: Kev Lenz MD on 09/24/2023 9:50 PM PDT Approved by: Kev Lenz MD on 09/24/2023 9:50 PM PDT Station ID: [id number]
--- NOTE | 2023-09-24 21:54 | CT Report ---
PROCEDURE: Angio Head/Neck INDICATIONS: confusion, recent GLF, AMS TECHNIQUE: After the administration of intravenous contrast, 1 mm thick sections acquired from the aortic arch t hrough the [place]. 3-dimensional zrylmvq-duylltjma-llgdvsrbxx (MIP) and/or volume renderin g reformats were acquired of the central intracranial vasculature and neck separately. For radiation dose reduction, the following was used: automated exposure control, adjustment of mA and/or kV acco rding to patient size. CONTRAST: OMni 300, 80mls COMPARISON: None. FINDINGS: Image quality: Diagnostic. HEAD CT: CSF Spaces: Basal cisterns are patent. No extra-axial fluid collections. Ventricles are normal in size and shape. Brain: No significant abnormality is seen for scanning technique. Skull and face: Calvarium and visualized facial bones appear intact, without suspicious lesions. Sinuses: Visualized sinuses and mastoids are clear. HEAD CT ANGIOGRAPHY: Anterior circulation: Intracranial internal carotid arteries are normal in size and flow. The flow within the paired anterior cerebral arteries is normal and symmetric. The flow within the middle cer ebral arteries is normal and symmetric. The anterior communicating artery is seen. No aneurysms are seen. Posterior circulation: Visualized portions of the vertebral arteries demonstrate normal caliber, and join to form a normal appearing basilar artery. Flow within the posterior cerebral arteries is norm al and symmetric. No aneurysms are seen. NECK CT ANGIOGRAPHY: Carotid system: The great vessels demonstrate a conventional anatomy as they arise from the aortic a rch. The origins of the common carotid arteries appear patent. The common carotid arteries demonstr ate normal caliber and courses. The bifurcation regions are both widely patent. The internal caroti d arteries demonstrate normal calibers and courses. Posterior circulation: The origins of the vertebral arteries both appear widely patent. The more scott perior extracranial portions of both vertebral arteries also demonstrate normal courses and calibers. They join to form a normal appearing basilar artery. Soft tissues: Visualized neck soft tissues demonstrate no suspicious abnormalities. Bones: No suspicious bony lesions. Visualized cervical spine appears normally aligned. IMPRESSION: No significant intracranial arterial abnormality is seen. No significant abnormality is seen within the arteries of the neck. The estimate of stenosis included in the report of the imaging study was calculated using the NASCET method Reviewed by: Kev Lenz MD on 09/24/2023 9:52 PM PDT Approved by: Kev Lenz MD on 09/24/2023 9:52 PM PDT Station ID: [email or web address]
[2023-09-24 22:41] VITALS: BP 130/82
--- NOTE | 2023-10-07 12:32 | ED Physician Documentation ---
PD HPI ALTERED MENTAL STATUS - Stated complaint Stated Complaint: AMS - Chief complaint Chief Complaint: Neuro - Additional information Additional information: 77-year-old female presents emergency department from [facility] for concerns of altered mental status. Patient has history of CVA and family is concerned about a possible slow bleed that is causing this altered mental status. She has been to the ER emergency department 2 times prior to this for workup and scans and has not had any acute findings or abnormalities. She is neurologically intact but does appear to have some delayed speech when asking her questions. She is able to only answer one-word answers. PD PAST MEDICAL HISTORY - Past Medical History Cardiovascular: Hypertension Respiratory: None Neuro: None Endocrine/Autoimmune: None GI: Diverticulitis EQUIPMENT ASSOCIATE: None : None HEENT: None Psych: None Musculoskeletal: Osteoarthritis, Rheumatoid arthritis, Chronic back pain Derm: None - Past Surgical History Past Surgical History: Yes General: Cholecystectomy, Bowel surgery Ortho: Hip replacement, Knee replacement, Spine surgery, Other /EQUIPMENT ASSOCIATE: Hysterectomy - Present Medications Home Medications: Ambulatory Orders Medication Instructions Recorded Confirmed Leflunomide [Arava] 20 mg PO DAILY 08/01/17 09/24/23 Atorvastatin Calcium 40 mg PO DAILY 09/21/23 09/24/23 Losartan Potassium 25 mg PO DAILY 09/21/23 09/24/23 Pantoprazole Sodium 40 mg PO DAILY 09/21/23 09/24/23 Prednisone [Lauro] 4 mg PO DAILY 09/21/23 09/24/23 Trazodone HCl 25 mg PO HS 09/23/23 09/24/23 - Allergies Allergies/Adverse Reactions: Allergies Allergy/AdvReac Type Severity Reaction Status Date / Time iodine Allergy Severe Respiratory Verified 09/24/23 17:50 methotrexate Allergy Severe Respiratory Verified 09/24/23 17:50 venom-honey bee Allergy Severe Respiratory Verified 09/24/23 17:50 adhesive tape Allergy Mild Itching Verified 09/24/23 17:50 latex Allergy Rash Verified 09/24/23 17:50 shellfish derived AdvReac Severe "almost Verified 09/24/23 17:50 " - Social History Does the pt smoke?: No Smoking Status: Never smoker Does the pt drink ETOH?: Yes Does the pt have substance abuse?: No - Immunizations Immunizations are current?: Yes - POLST Patient has POLST: No PD ED PE NORMAL - Vitals Vital signs reviewed: Yes - General General: No acute distress, Well developed/nourished - HEENT HEENT: PERRL - Cardiac Cardiac: RRR - Respiratory Respiratory: No respiratory distress, Clear bilaterally - Abdomen Abdomen: Normal bowel sounds, Soft, Non tender - Derm Derm: Normal color, Warm and dry, No rash - Extremities Extremities: No edema, No calf tenderness / cord - Neuro Neuro: Other (AO X 1-2) - Psych Psych: Normal mood, Normal affect PD ED PE EXPANDED - Neuro Neuro: Normal motor, Weakness, PERRL, Normal finger nose, Other (delayed speach). No: Nystagmus Results - Vitals Vitals: Oxygen O2 Source Room air - Labs Labs: Laboratory Tests 09/24/23 09/24/23 19:05 19:05 WBC 7.6 RBC 4.49 Hgb 13.0 Hct 40.2 MCV 89.5 MCH 29.0 MCHC 32.3 RDW 14.6 Plt Count 245 MPV 9.3 Neut # (Auto) 4.9 Lymph # (Auto) 1.8 Cobb # (Auto) 0.8 Eos # (Auto) 0.2 Baso # (Auto) 0.1 Absolute Nucleated RBC 0.00 Nucleated RBC % 0.0 Sodium 134 L Potassium 4.2 Chloride 101 Carbon Dioxide 26 Anion Gap 7.0 BUN 22 H Creatinine 0.7 Estimated GFR (MDRD) 81 L Glucose 110 H Calcium 9.5 Magnesium 1.8 Total Bilirubin 0.9 AST 22 ALT 24 Alkaline Phosphatase 107 Total Protein 7.9 Albumin 3.9 Globulin 4.0 Albumin/Globulin Ratio 1.0 Lipase 26 - Rads (name of study) Head and neck angio CT Relevant Findings:: Final report received, EMP independent interpretation of test, Other (No acute arterial abnormalities in the head or neck) Head CT Relevant Findings:: Final report received, EMP independent interpretation of test (No acute intracranial hemorrhages or abnormalities) PD Medical Decision Making - ED course ED course: 77-year-old female presents emergency department via EMS from [facility] for concerns of altered mental status. Given the patient has had a history of CVA is difficult to understand what patient's neurological baseline is. I attempted to call the patient's daughter multiple times but unfortunately was unable to get a hold of her. It sounds like their main concern was that patient may be experiencing a small delayed bleed as patient has had a recent ground-level fall previous to head CTs were found to be negative. My exam on the patient here is found to be fairly unremarkable. I did a CT head neck angio and there is no acute arterial abnormalities in the head or neck as well as a head CT and it did no acute intracranial abnormalities are seen. Labs are also complete for further evaluation and again no signifi cant acute abnormalities or findings. Unfortunately we do not have MRI in house today or tomorrow and she does not meet hospitalization criteria she is told to follow-up with her primary care provider outpatient for further evaluation of their concerns about patient's altered mental status. She does not appear to be confused for me and she is completely neurologically intact strength is equal bilaterally and normal neurological exam aside from delayed speech and tends to answer simple one-word answers like yes or no. There is no further emergent workup indicated at this time and patient is safe for discharge. Departure - Departure Disposition: 01 Home, Self Care Clinical Impression: Expressive language delay Instructions: Falls Risks Prevent, ED Prevention Fall Comments: Thank you for trusting us with your care. We have completed a head CT as well as a CT angio head and neck and we are not finding any acute abnormalities or findings at this point in time. I have copied and pasted the CT results below for your personal reading. We do not have MRI here but you may benefit from an outpatient MRI for further evaluation of your difficulty with your delayed speech. Please follow-up with your primary care provider about today's ER visit. Your labs are very reassuring and unfortunately we do not have anything that would require further hospitalization. PT NAME: JOSE DANIEL CARRASQUILLO MR#: [id number] REG ER/ED AGE: 77 CI DT/TM: 09/24/23 PCP: Nate Yousif MD : 1945 ATT: SEX: F ORD: Francesco Contreras MANAGER HOSPITALITY EXAM: [id number] CT/HEADWO ([id number]) PROCEDURE: Head WO INDICATIONS: Recent GLF, confusion TECHNIQUE: Noncontrast 4.5 mm thick angled axial sections acquired from the foramen magnum to the vertex. For radiation dose reduction, the following was used: automated exposure control, adjustment of mA and/or kV according to patient size. COMPARISON: 09/20/2023 FINDINGS: Image quality: Excellent. CSF spaces: Basal cisterns are patent. No extra-axial fluid collections. Ventricles are normal in size and shape. Brain: No midline shift. No intracranial masses or hemorrhage. Maldonado-white matter interface is normal. Leukoaraiosis, commonly caused by chronic small vessel ischemic disease. Age-related volume loss. Remote lacunar infarcts. Skull and face: Calvarium and visualized facial bones are intact, without suspicious lesions. Sinuses: Visualized sinuses and mastoids are clear. IMPRESSION: No acute intracranial pathology. PT NAME: JOSE DANIEL CARRASQUILLO MR#: [id number] REG ER/ED AGE: 77 CI DT/TM: 09/24/23 PCP: Nate Yousif MD : 1945 ATT: SEX: F ORD: Francesco Contreras MANAGER HOSPITALITY EXAM: [id number] CT/HNA PROCEDURE: Angio Head/Neck INDICATIONS: confusion, recent GLF, AMS TECHNIQUE: After the administration of intravenous contrast, 1 mm thick sections acquired from the aortic arch through the [place]. 3-dimensional bjaywhc-sqimnwaoh-gkgcfgipsp (MIP) and/or volume rendering reformats were acquired of the central intracranial vasculature and neck separately. For radiation dose reduction, the following was used: automated exposure control, adjustment of mA and/or kV according to patient size. CONTRAST: OMni 300, 80mls COMPARISON: None. FINDINGS: Image quality: Diagnostic. HEAD CT: CSF Spaces: Basal cisterns are patent. No extra-axial fluid collections. Ventricles are normal in size and shape. Brain: No significant abnormality is seen for scanning technique. Skull and face: Calvarium and visualized facial bones appear intact, without suspicious lesions. Sinuses: Visualized sinuses and mastoids are clear. HEAD CT ANGIOGRAPHY: Anterior circulation: Intracranial internal carotid arteries are normal in size and flow. The flow within the paired anterior cerebral arteries is normal and symmetric. The flow within the middle cerebral arteries is normal and symmetric. The anterior communicating artery is seen. No aneurysms are seen. Posterior circulation: Visualized portions of the vertebral arteries demonstrate normal caliber, and join to form a normal appearing basilar artery. Flow within the posterior cerebral arteries is normal and symmetric. No aneurysms are seen. NECK CT ANGIOGRAPHY: Carotid system: The great vessels demonstrate a conventional anatomy as they arise from the aortic arch. The origins of the common carotid arteries appear patent. The common carotid arteries demonstrate normal caliber and courses. The bifurcation regions are both widely patent. The internal carotid arteries demonstrate normal calibers and courses. Posterior circulation: The origins of the vertebral arteries both appear widely patent. The more superior extracranial portions of both vertebral arteries also demonstrate normal courses and calibers. They join to form a normal appearing basilar artery. Soft tissues: Visualized neck soft tissues demonstrate no suspicious abnormalities. Bones: No suspicious bony lesions. Visualized cervical spine appears normally aligned. IMPRESSION: No significant intracranial arterial abnormality is seen. No significant abnormality is seen within the arteries of the Forms: PCP List Discharge Date/Time: 09/24/23 22:28
== END 2023-09-24 22:28 | disposition home or self-care (01) ==
LOC: ED 17:37
DX: F80.1 Expressive language disorder (principal); R41.82 Altered mental status, unspecified; I10 Essential (primary) hypertension; Z86.73 Personal history of transient ischemic attack (TIA), and cerebral infarction without residual deficits
CPT/HCPCS: 36415; 70450; 70496; 70498; 80053; 83690; 83735; 85025; 96374; 96375; 99284; J1200; Q9967